=== PATIENT | male | born 2000 | race Two or more races ===

== ENCOUNTER 2022-09-20 15:38 | Outpatient (AMB) | payer OTHER, SELFPAY ==
[2022-09-20 15:41] VITALS: BP 128/78; PULSE 86; O2SAT 97; BMI 34.7
--- NOTE | 2022-09-20 15:41 | A.OFFPC_ITS ---
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 Allergies No Known Allergies Allergy (Verified 09/20/22 16:00) Medication List - Last Reconciled 09/20/22 by Jl Donaldson PA-C albuterol 90 mcg/actuation mcg inhalation budesonide-formoterol 80-4.5 mcg/actuation (Symbicort) 1 puff inhalation BID cetirizine (Zyrtec) 10 mg PO DAILY PRN Tobacco use date assessed: 09/20/22 Dental Screening Dental Screen Date: 09/20/22 Did you have a dental visit in the last 12 months?: Yes Did you have a dental problem in the last 6 months where you did not have access to dental care?: No Was dental information given to patient?: 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 Patient has a past medical history significant for moderate persistent asthma and obesity. .. Asthma: He reports his asthma is fairly well controlled with use of his Symbicort and p.r.n. use of his albuterol inhaler. He denies any recent asthma exacerbations or nighttime awakenings with asthma symptoms .. Obesity: He does understand his BMI is over 30 and will work on being more physically active and adapting to better eating habits to reduce his weight. .. : Vaccines: Up-to-date with COVID vaccine, needs tetanus vaccine [facility] Family History Mother No problems noted. Father No problems noted. Sister No problems noted. Sister No problems noted. Brother No problems noted. Brother No problems noted. Social History (Updated 09/20/22 @ 16:01 by Jl Donaldson PA-C) Housing: Other (with parents) Alcohol intake: current Patient Tobacco Use Status: Never used Tobacco e-Cigarette/Vaping Use: Never Used Second Hand Smoke Exposure: No Current occupational status: unemployed Cognitive needs: No Hearing needs: No Vision needs: Yes Questionnaire PHQ-9 Over the last 2 weeks, how often have you been bothered by any of the following problems? 1. Little interest or pleasure in doing things: not at all 2. Feeling down, depressed, or hopeless: not at all 3. Trouble falling or staying asleep, or sleeping too much: not at all 4. Feeling tired or having little energy: not at all 5. Poor appetite or overeating: not at all 6. Feeling bad about yourself - or that you are a failure or have let yourself or your family down: not at all 7. Trouble concentrating on things, such as reading the newspaper or watching television: not at all 8. Moving or speaking so slowly that other people could have noticed. Or the opposite - being so fidgety or restless that you have been moving around a lot more than usual: not at all 9. Thoughts that you would be better off or of hurting yourself in some way: not at all Total score: 0 Depression Screening Interpretation: Negative 77242 - PHQ-9 Billing: Yes Source: Developed by Drs. Jack Ray, Alena Rodriguez, Delio Fan and colleagues, with an educational airam from [employer]. Thrive Questionnaire Date Thrive assessed: 09/20/22 I am a: Patient What is your living situation today?: I have a steady place to live Within the past 12 months, did the food you bought not last and you didn't have the money to get more?: Never true Within the past 12 months, did you worry whether your food would run out before you got money to buy more?: Never true Do you have trouble paying for medicines?: No Do you have trouble getting transportation to medical appointments?: No Do you have trouble paying your heating and electricity bill?: No Do you have trouble taking care of your child, family member or friend?: No Do you have trouble with day-to-day activities such as bathing, preparing meals, shopping, managing finances, etc.?: No Are you currently unemployed and looking for a job?: No Are you interested in more education?: No Currently or been in a relationship where the following occur: no concerns reported AUDIT C Alcohol Use Questionnaire (AUDIT-C) 1. How often do you have a drink containing alcohol?: Monthly or less 2. How many drinks containing alcohol do you have on a typical day when you are drinking?: 1 or 2 3. How often do you have six or more drinks on one occasion?: Never Total Score: 1 MARILYN-7 AMB Questionnaire MARILYN-7 Date MARILYN - 7 assessed: 09/20/22 Feeling nervous, anxious, or on edge: 1 = Several days Not being able to stop or control worryin = Not at all Worrying too much about different things: 0 = Not at all Trouble relaxin = Not at all Being so restless that it is hard to sit still: 0 = Not at all Becoming easily annoyed or irritable: 0 = Not at all Feeling afraid as if something awful might happen: 0 = Not at all Total MARILYN-7 score (0-4 normal; 5-9 mild; 10-14 moderate; 15-21 severe): 1 Source: Developed by Drs. Jack Ray, Alena Rodriguez, Delio Fan and colleagues, with an educational airam from [employer]. MARILYN-7 Assessment Billing MARILYN-7 Assessment Tool: MARILYN-7 Assessment 28225 ACT Questionnaire In the past 4 weeks, how much of the time did your asthma keep you from getting as much done at work, school or at home?: None of the time During the past 4 weeks, how often have you had shortness of breath?: Not at all During the past 4 weeks, how often did your asthma symptoms wake you up at night or earlier than usual in the morning?: Not at all During the past 4 weeks, how often have you had to use your rescue inhaler or nebulizer medication?: Not at all How would you rate your asthma control during the past 4 weeks?: Completely controlled ACT Interpretation: Negative Score: 25 Review of Systems Const Denies body aches, Denies chills, Denies excessive sweating, Denies fatigue, Denies fever(s) and Denies headache(s) Eyes Denies blurry vision ENT Denies dysphagia, Denies vertigo, Denies dizziness, Denies headache(s), Denies hearing loss and Denies tinnitus Card Denies chest pain, Denies chest pain with activity, Denies syncope, Denies irregular heart rhythm and Denies dyspnea Resp Denies chest congestion, Denies cough, Denies hemoptysis, Denies dyspnea and Denies wheezing GI Denies abdominal pain, Denies melena, Denies hematochezia, Denies coffee ground emesis, Denies dysphagia, Denies diarrhea, Denies nausea and Denies vomiting Denies difficulty urinating, Denies dysuria, Denies urinary frequency, Denies urinary hesitancy and Denies urinary urgency Musc Denies arthralgias, Denies limited range of motion, Denies muscle cramps and Denies muscle weakness Skin/Breast Denies rash and Denies skin ulcer Neuro Denies Abnormal speech present, Denies confusion, Denies vertigo, Denies dizziness, Denies syncope, Denies headache(s), Denies memory loss and Denies seizure-like activity Psych Denies anxiety, Denies confusion, Denies depression, Denies memory loss, Denies panic attacks and Denies paranoia Endo Denies excessive sweating, Denies fatigue, Denies flushing, Denies polydipsia and Denies polyuria Aller/Immun Denies wheezing Physical exam (Primary Care) Vital Signs: Last Vital Signs Pulse 86 09/20/22 15:41 BP 128/78 09/20/22 15:41 Pulse Ox 97 09/20/22 15:41 Oxygen Delivery Method Room Air 09/20/22 15:41 BMI result Body Mass Index 34.7 BMI Assessment/Plan discussion: High Tobacco/Smoking Status: Tobacco use Status Tobacco use date assessed 09/20/22 09/20/22 15:48 Patient Tobacco Use Status Never used Tobacco 09/20/22 16:01 e-Cigarette/Vaping Use Never Used 09/20/22 16:01 PHQ-9: PHQ-9 Score PHQ-9: Total score 0 09/20/22 16:02 Depression Screening Interpretation: Negative Thrive Assessment: Date of Thrive Assessment Date Thrive assessed 09/20/22 09/20/22 15:48 Currently or been in a relationship where the following occur: no concerns reported Const Other: OBESE General: cooperative, comfortable, no acute distress, alert and awake; No confusion Orientation/consciousness: oriented to person, oriented to place, patient oriented x3 and No confusion HENMT Head: Yes normocephalic Ears: external ears normal and TM's normal bilaterally Face and sinus: No sinus tenderness Mouth: Normal oral and palatal mucosa present and tongue normal Teeth and gingiva: dentition normal and gingiva normal Throat: Yes posterior oropharynx normal, Yes tonsils normal and Yes uvula midline Eyes Conjunctivae: conjunctivae normal Sclerae: sclerae normal Pupils: Equal, round and reactive pupils present EOM: EOMs intact bilaterally Direct Ophthalmoscopy: No no photophobia Neck Neck: Yes no lymphadenopathy, No tender and Yes no JVD Thyroid: Thyroid normal Carotids: no bruits Chest Chest palpation & inspection: no tenderness Resp Effort & Inspection: normal respiratory effort, no audible wheezes, not labored and no stridor Auscultation: no crackles, no rales, no rhonchi and no wheezes Cardio Jugular venous distension: no JVD Rate: regular rate, not bradycardic and not tachycardic Rhythm: regular rhythm Bruits: no carotid bruits Peripheral pulses: Peripheral pulses 2+ throughout GI Inspection: Yes normal to inspection, No abdominal wall ecchymosis and No visible herniation Palpation (GI): Soft to palpation, nontender, no guarding, not rigid and No hepatosplenomegaly present Auscultation: normoactive bowel sounds General: Yes no CVA tenderness Back/Spine/Pelvis Back: no CVA tenderness and No back tenderness Cervical Spine: cervical ROM normal Thoracic/Lumbar Spine: thoracic and lumbar spine normal to inspection, straight leg raise negative bilaterally, No thoraco-lumbar ROM limited and No lumbar spinal tenderness Skin Lesions: no lesions Rashes: no rashes Wounds: no wounds Neuro General: oriented to person, oriented to place, patient oriented x3, CN's II-XI intact bilaterally and No confusion Cranial nerves: Yes Equal, round and reactive pupils present and Yes Normal accommodation reflex present Cognition (Neuro): normal cognition Speech: No Abnormal speech present Gait exam (Neuro): Normal gait present Motor exam (neuro): 5/5 motor strength present throughout Extrem Right upper extremity: full ROM; no cyanosis Left upper extremity: full ROM; no cyanosis Right lower extremity: no edema Left lower extremity: no edema Psych Appearance: grossly normal Mental Status: mental status grossly normal Affect: normal affect Attitude: cooperative Thought process: Normal thought process present Assessment and Plan Assessment & Plan (1) Annual physical exam: Code(s): Z00.00 - Encounter for general adult medical examination without abnormal findings (2) Asthma: Code(s): J45.909 - Unspecified asthma, uncomplicated Qualifiers: Asthma complication type: uncomplicated Asthma persistence: persistent Asthma severity: mild Qualified Code(s): J45.30 - Mild persistent asthma, uncomplicated Plan: Patient does use Symbicort on a p.r.n. basis also albuterol inhaler on a p.r.n. basis. He denies any nighttime with asthma symptoms or awakenings are recent asthma exacerbations. (3) Screening for diabetes mellitus (DM): Code(s): Z13.1 - Encounter for screening for diabetes mellitus (4) Obese: Code(s): E66.9 - Obesity, unspecified Qualifiers: Obesity type: due to excess calories Obesity classification: adult class 1 (BMI 30 - 34.9) Serious obesity comorbidity presence: without serious comorbidity Body mass index: BMI 34.0-34.9 Qualified Code(s): E66.09 - Other obesity due to excess calories; Z68.34 - Body mass index [BMI] 34.0-34.9, adult Plan: Again patient does understand his BMI is over 30 will work on being more physically active and adapting to better eating habits to reduce his weight Orders: Orders Comprehensive [place]. Panel Fast 09/20/22 Z13.1 - Encounter for screening for diabetes mellitus Complete Blood Count no Diff 09/20/22 J45.909 - Unspecified asthma, uncomplicated Medications: New budesonide-formoterol 80-4.5 mcg/actuation (Symbicort) 1 puff inhalation BID 30 days 10.2 grams 1RF J45.30 - Mild persistent asthma, uncomplicated albuterol sulfate 90 mcg/actuation 1 inh inhalation QID 30 days PRN 8.5 grams 3RF shortness of breath or wheezing J45.30 - Mild persistent asthma, uncomplicat ed Coding Level of Care Code New Pt Prev Care [id number]([id number] Diagnoses Annual physical exam Z00.00 Asthma J45.30 Asthma complication type: uncomplicated Asthma persistence: persistent Asthma severity: mild Screening for diabetes mellitus (DM) Z13.1 Obese E66.09; Z68.34 Obesity type: due to excess calories Obesity classification: adult class 1 (BMI 30 - 34.9) Serious obesity comorbidity presence: without serious comorbidity Body mass index: BMI 34.0-34.9 Additional Codes MARILYN-7 Assessment Billing - MARILYN-7 Assessment Tool: MARILYN-7 Assessment [id number] ([id number])
== END 2022-09-20 16:11 | disposition home or self-care (01) ==
PROVIDERS: Visit Provider Physician Assistant
DX: Z00.00 Encounter for general adult medical examination without abnormal findings (principal); J45.30 Mild persistent asthma, uncomplicated; E66.09 Other obesity due to excess calories; Z68.34 Body mass index [BMI] 34.0-34.9, adult; Z13.1 Encounter for screening for diabetes mellitus
CPT/HCPCS: 99385

== ENCOUNTER 2022-10-13 07:46 | Outpatient (REF) | payer OTHER, MEDICAID, SELFPAY ==
[2022-10-13 08:37] LABS: Hematocrit 47.7 % (42.0-52.0); Hemoglobin 15.1 g/dl (14.0-18.0); Mean Corpuscular HGB Conc 31.7 g/dl (31.0-36.0); Mean Corpuscular Hemoglobin 24.9 pg (27.0-33.0); Mean Corpuscular Volume 78.6 fL (80.0-98.0); Mean Platelet Volume 11.4 fL (9.4-12.4); Platelet Count 223 X10*3/uL (160-400); Red Blood Count 6.07 X10*6/uL (4.60-5.80); Red Cell Distribution Width 13.4 % (11.0-16.0); White Blood Count 7.7 X10*3/uL (4.8-10.8)
[2022-10-13 09:52] LABS: Alanine Aminotransferase 45 U/L (0-40); Albumin Level 4.7 g/dL (3.5-5.0); Alkaline Phosphatase 89 U/L (39-117); Anion Gap 16 (12-20); Aspartate Amino Transferase 24 U/L (5-37); Bilirubin Total 0.5 mg/dL (0.0-1.0); Blood Urea Nitrogen 11 mg/dL (9-16); Carbon Dioxide 23 mmol/L (22-29); Chloride 104 mmol/L (96-108); Estimated Glomerular Filt Rate > 60; Glucose Fasting 94 mg/dL (60-99); Potassium 4.2 mmol/L (3.3-5.1); Sodium 139 mmol/L (135-145)
== END 2022-10-13 07:47 | disposition home or self-care (01) ==
LOC: HO.LAB 07:46
PROVIDERS: PCP Physician Assistant; Visit Provider Physician Assistant
DX: Z13.1 Encounter for screening for diabetes mellitus (principal); J45.909 Unspecified asthma, uncomplicated
CPT/HCPCS: 36415; 80053; 85027

== ENCOUNTER 2022-12-07 09:33 | Outpatient (AMB) | payer OTHER, MEDICAID, SELFPAY ==
[2022-12-07 09:35] VITALS: BP 124/67; PULSE 87; O2SAT 97; BMI 35.4
--- NOTE | 2022-12-07 09:35 | A.OFFVIS_ITS ---
Intake Vital Signs 12/07/22 09:35 Height 5 ft 7.5 in Weight 229 lb 4.492 oz BMI 35.4 BP 124/67 Blood Pressure Location Rt brachial Position Sitting Pulse 87 Pulse Source Doppler Pulse Oximetry (%) 97 Oxygen Delivery Method Room Air Intake Visit Reasons: Asthma Allergies amoxicillin Allergy (Severe, Verified 12/07/22 09:38) Rash HPI Asthma HPI Details 21-year-old gentleman, nonsmoker, with a sthma since 7 years of age, now under care of Dr. Steele referred for pulmonary evaluation. Patient states that his symptoms are well controlled on Symbicort, albuterol MDI, and Zyrtec. He denies recent exacerbations. Patient never been hospitalized with asthma. He does have a dog and a cat as pets. He complains of environmental allergies. [facility] Family History Mother No problems noted. Father No problems noted. Sister No problems noted. Sister No problems noted. Brother No problems noted. Brother No problems noted. Social History (Reviewed 12/07/22 @ 09:40 by Dee Holm [facility]) Housing: Other (with parents) Alcohol intake: current Patient Tobacco Use Status: Never used Tobacco e-Cigarette/Vaping Use: Never Used Second Hand Smoke Exposure: No Current occupational status: unemployed Cognitive needs: No Hearing needs: No Vision needs: Yes Review of Systems Const Denies daytime sleepiness, Denies excessive sweating, Denies fatigue, Denies fever(s), Denies lethargy, Denies malaise, Denies night sweats, Denies snoring and Denies weight loss Eyes Denies blurry vision and Denies itchy eyes ENT Denies nasal congestion, Denies post nasal drip, Denies sinus pain, Denies sinus pressure and Denies other ( Thrush) Card Denies chest pain, Denies pedal edema, Denies dyspnea, Denies orthopnea and Denies paroxysmal nocturnal dyspnea Resp Denies cough, Denies hemoptysis, Denies excessive phlegm production, Denies dyspnea, Denies snoring and Denies wheezing GI Denies abdominal pain and Denies heartburn Musc Denies myalgias, Denies arthralgias and Denies joint swelling Skin/Breast Denies rash Neuro Denies memory loss and Denies seizure-like activity Psych Denies abnormal sleep pattern, Denies anxiety and Denies memory loss Endo Denies excessive sweating, Denies fatigue and Denies heat intolerance Haroldo/Lymph Denies easy bruising Aller/Immun Denies itchy eyes, Denies seasonal rhinorrhea and Denies wheezing Physical Exam Vital Signs: Last Vital Signs Pulse 87 12/07/22 09:35 BP 124/67 12/07/22 09:35 Pulse Ox 97 12/07/22 09:35 Oxygen Delivery Method Room Air 12/07/22 09:35 BMI result Body Mass Index 35.4 Const General: no acute distress and alert Nutritional Appearance: not obese Orientation/consciousness: Other orientation findings ( oriented) HEENT Head: Yes atraumatic Eyes General: appearance normal, both eyes and all related structures Sclerae: sclerae normal EOM: EOMs intact bilaterally Neck Neck: Yes supple Lymphatic: no lymphadenopathy noted Resp Effort & Inspection: normal respiratory effort and no use of accessory muscles Auscultation: clear to auscultation bilaterally Cardio Rate: regular rate Rhythm: regular rhythm Heart sounds: no gallops, no murmurs and no rubs Skin General skin exam: other ( warm) Extrem General: No clubbing, No cyanosis and No edema Assessment & Plan Assessment & Plan (1) Asthma: Code(s): J45.909 - Unspecified asthma, uncomplicated Qualifiers: Asthma severity: mild Asthma persistence: persistent Asthma compl ication type: uncomplicated Qualified Code(s): J45.30 - Mild persistent asthma, uncomplicated Plan: Asthma of unclear severity, now well controlled on current regimen of Symbicort, albuterol MDI, and Zyrtec. Continue current regimen. Will obtain full PFT. Coding Level of Care Code New Pt Level 3 (33994) Diagnoses Mild persistent asthma without complication J45.30 Asthma severity: mild Asthma persistence: persistent Asthma complication type: uncomplicated
== END 2022-12-07 09:56 | disposition home or self-care (01) ==
PROVIDERS: PCP Physician Assistant; Referring Provider Otolaryngology; Visit Provider Internal Medicine Pulmonary Disease
DX: J45.30 Mild persistent asthma, uncomplicated (principal)
CPT/HCPCS: 99203

== ENCOUNTER → 2022-12-07 09:33 | Outpatient (BNVA) | payer OTHER, MEDICAID, SELFPAY | PROVIDERS: PCP Physician Assistant; Referring Provider Otolaryngology; Visit Provider Internal Medicine Pulmonary Disease ==

== ENCOUNTER 2022-12-13 08:27 | Outpatient (REF) | payer OTHER, MEDICAID, SELFPAY ==
--- NOTE | 2022-12-14 08:07 | PFT_ITS ---
FLOWS: 1. FEV1 109% of predicted at 4.12 L. 2. FVC 103% of predicted at 5.01 L. 3. FEV1 to FVC ratio of 0.82. 4. No bronchodilator response except for small to medium airways. LUNG VOLUMES: 1. Total lung capacity 94% of predicted at 5.85 L. 2. Residual volume 77% of predicted at 1.00 L. 3. Slow vital capacity 101% of predicted at 4.85 L. 4. Expiratory reserve volume 72% of predicted at 1.11 L. 5. Diffusion capacity is normal. IMPRESSION: No obstructive or restrictive ventilatory defect. No bronchodilator response except small to medium airways. Essentially normal pulmonary function test. MD ABHISHEK Quintero/MODL / [id number]
== END 2022-12-13 08:28 | disposition home or self-care (01) ==
LOC: HO.RESP 08:27
PROVIDERS: PCP Physician Assistant; Visit Provider Internal Medicine Pulmonary Disease
DX: J45.30 Mild persistent asthma, uncomplicated (principal)
CPT/HCPCS: 94010; 94727; 94729

== ENCOUNTER → 2022-12-14 08:07 | Outpatient (BNV) | payer OTHER, MEDICAID, SELFPAY | PROVIDERS: PCP Physician Assistant; Visit Provider Internal Medicine Pulmonary Disease | DX: R06.09 Other forms of dyspnea (principal) | CPT/HCPCS: 94060; 94727; 94729 ==

== ENCOUNTER 2023-10-22 14:02 | Outpatient (AMB) | payer OTHER, SELFPAY ==
--- NOTE | 2023-10-22 14:19 | MHC.PC.OV ---
Vital Signs 10/22/23 14:40 Height 5 ft 5.7 in Weight 222 lb 6 oz BMI 36.2 BP 118/80 Blood Pressure Location Lt brachial Position Sitting Pulse 68 Pulse Source Pulse Oximeter Pulse Oximetry (%) 98 Oxygen Delivery Method Room Air Intake Visit Reasons: Annual Exam Intake Note: Patient is here today for a physical. Shore Worker Required: No Accompanied by: Self / Same As Patient Allergies amoxicillin Allergy (Severe, Verified 10/22/23 14:56) Rash Medication List - Last Reconciled 10/22/23 by Jl Donaldson PA-C albuterol sulfate 90 mcg/actuation 1 inh inhalation QID PRN 30 days budesonide-formoterol 160-4.5 mcg/actuation (Symbicort) inhalation cetirizine (Zyrtec) 10 mg PO DAILY PRN diphenhydramine HCl (Benadryl Allergy) 25 mg PO BEDTIME PRN epinephrine (EpiPen) 0.3 mg IM Q4H PRN fluticasone propion-salmeterol 113-14 mcg/actuation (AirDuo RespiClick) 1 inh inhalation BID 30 days Tobacco use date assessed: 10/22/23 Dental Screening Dental Screen Date: 10/22/23 Did you have a dental visit in the last 12 months?: Yes Did you have a dental problem in the last 6 months where you did not have access to dental care?: No Was dental information given to patient?: Patient has dentist HPI Annual Exam HPI Details Patient is a 22-year-old male here today for annual physical Patient has a past medical history significant for moderate persistent asthma and obesity. .. Asthma: He reports his asthma is fairly well controlled with use of his Symbicort and p.r.n. use of his albuterol inhaler. He denies any recent asthma exacerbations or nighttime awakenings with asthma symptoms .. Obesity: Has been able to lose a few lb since last office visit. He does understand his BMI is over 30 and will work on being more physically active and adapting to better eating habits to reduce his weight. .. : Vaccines: Up-to-date with COVID vaccine, needs tetanus vaccine (though declines today) PFSH Family History Mother No problems noted. Father No problems noted. Sister No problems noted. Sister No problems noted. Brother No problems noted. Brother No problems noted. Social History (Updated 10/22/23 @ 15:00 by Jl Donaldson PA-C) Housing: Other (with parents) Alcohol intake: current Alcohol intake frequency: holidays/special occasions only Alcohol type: hard liquor Patient Tobacco Use Status: Never used Tobacco e-Cigarette/Vaping Use: Never Used Second Hand Smoke Exposure: No Current occupational status: employed Current occupation: [employer] Cognitive needs: No Hearing needs: No Vision needs: Yes Questionnaire PHQ-9 Over the last 2 weeks, how often have you been bothered by any of the following problems? 1. Little interest or pleasure in doing things: not at all 2. Feeling down, depressed, or hopeless: not at all 3. Trouble falling or staying asleep, or sleeping too much: not at all 4. Feeling tired or having little energy: not at all 5. Poor appetite or overeating: not at all 6. Feeling bad about yourself - or that you are a failure or have let yourself or your family down: not at all 7. Trouble concentrating on things, such as reading the newspaper or watching television: nearly every day 8. Moving or speaking so slowly that other people could have noticed. Or the opposite - being so fidgety or restless that you have been moving around a lot more than usual: nearly every day 9. Thoughts that you would be better off or of hurting yourself in some way: not at all Total score: 6 Depression Screening Interpretation: Negative Depression Screening Done: Yes 05549 - PHQ-9 Billing: Yes Source: Developed by Drs. Jack Ray, Alena Rodriguez, Delio Fan and colleagues, with an educational airam from [employer]. Thrive Questionnaire Date Thrive assessed: 10/22/23 I am a: Patient What is your living situation today?: I have a steady place to live Within the past 12 months, did the food you bought not last and you didn't have the money to get more?: Never true Within the past 12 months, did you worry whether your food would run out before you got money to buy more?: Never true Do you have trouble paying for medicines?: No Do you have trouble getting transportation to medical appointments?: No Do you have trouble paying your heating and electricity bill?: No Do you have trouble taking care of your child, family member or friend?: I choose not to answer this question Do you have trouble with day-to-day activities such as bathing, preparing meals, shopping, managing finances, etc.?: No Are you currently unemployed and looking for a job?: No Are you interested in more education?: No Please select the resources that you would like help with: None Currently or been in a relationship where the following occur: No concerns reported THRIVE Score: 0 AUDIT C Alcohol Use Questionnaire (AUDIT-C) 1. How often do you have a drink containing alcohol?: Never 3. How often do you have six or more drinks on one occasion?: Never Total Score: 0 MARILYN-7 AMB Questionnaire MARILYN-7 Date MARILYN - 7 assessed: 10/22/23 Feeling nervous, anxious, or on edge: 0 = Not at all Not being able to stop or control worryin = Not at all Worrying too much about different things: 0 = Not at all Trouble relaxin = Not at all Being so restless that it is hard to sit still: 1 = Several days Becoming easily annoyed or irritable: 0 = Not at all Feeling afraid as if something awful might happen: 0 = Not at all Total MARILYN-7 score (0-4 normal; 5-9 mild; 10-14 moderate; 15-21 severe): 1 Source: Developed by Drs. Jack Ray, Alena Rodriguez, Delio Fan and colleagues, with an educational airam from [employer] MARILYN-7 Assessment Billing MARILYN-7 Assessment Tool: MARILYN-7 Assessment 53123 ACT Questionnaire In the past 4 weeks, how much of the time did your asthma keep you from getting as much done at work, school or at home?: None of the time During the past 4 weeks, how often have you had shortness of breath?: Not at all During the past 4 weeks, how often did your asthma symptoms wake you up at night or earlier than usual in the morning?: Not at all During the past 4 weeks, how often have you had to use your rescue inhaler or nebulizer medication?: Not at all How would you rate your asthma control during the past 4 weeks?: Completely controlled ACT Interpretation: Negative Score: 25 Review of Systems Const Denies body aches, Denies chills, Denies excessive sweating, Denies fatigue, Denies fever(s) and Denies headache(s) Eyes Denies blurry vision ENT Denies dysphagia, Denies vertigo, Denies dizziness, Denies headache(s), Denies hearing loss and Denies tinnitus Card Denies chest pain, Denies chest pain with activity, Denies syncope, Denies irregular heart rhythm and Denies dyspnea Resp Denies chest congestion, Denies cough, Denies hemoptysis, Denies dyspnea and Denies wheezing GI Denies abdominal pain, Denies melena, Denies hematochezia, Denies coffee ground emesis, Denies dysphagia, Denies diarrhea, Denies nausea and Denies vomiting Denies difficulty urinating, Denies dysuria, Denies urinary frequency, Denies urinary hesitancy and Denies urinary urgency Musc Denies arthralgias, Denies limited range of motion, Denies muscle cramps and Denies muscle weakness Skin/Breast Denies rash and Denies skin ulcer Neuro Denies Abnormal speech present, Denies confusion, Denies vertigo, Denies dizziness, Denies syncope, Denies headache(s), Denies memory loss and Denies seizure-like activity Psych Denies anxiety, Denies confusion, Denies depression, Denies memory loss, Denies panic attacks and Denies paranoia Endo Denies excessive sweating, Denies fatigue, Denies flushing, Denies polydipsia and Denies polyuria Aller/Immun Denies wheezing Physical exam (Primary Care) Vital Signs: Last Vital Signs Pulse 68 10/22/23 14:40 BP 118/80 10/22/23 14:40 Pulse Ox 98 10/22/23 14:40 Oxygen Delivery Method Room Air 10/22/23 14:40 BMI result Body Mass Index 36.2 Tobacco/Smoking Status: Tobacco use Status Tobacco use date assessed 10/22/23 10/22/23 14:41 Patient Tobacco Use Status Never used Tobacco 10/22/23 15:00 e-Cigarette/Vaping Use Never Used 10/22/23 15:00 PHQ-9: PHQ-9 Score PHQ-9: Total score 6 10/22/23 15:09 Depression Screening Interpretation: Negative Thrive Assessment: Date of Thrive Assessment Date Thrive assessed 10/22/23 10/22/23 14:20 Currently or been in a relationship where the following occur: No concerns reported Const General: cooperative, comfortable, no acute distress, alert and awake; No confusion Orientation/consciousness: oriented to person, oriented to place, patient oriented x3 and No confusion HENWY Head: Yes normocephalic Ears: external ears normal and TM's normal bilaterally Face and sinus: No sinus tenderness Mouth: Normal oral and palatal mucosa present and tongue normal Teeth and gingiva: dentition normal and gingiva normal Throat: Yes posterior oropharynx normal, Yes tonsils normal and Yes uvula midline Eyes Conjunctivae: conjunctivae normal Sclerae: sclerae normal Pupils: Equal, round and reactive pupils present EOM: EOMs intact bilaterally Direct Ophthalmoscopy: No no photophobia Neck Neck: Yes no lymphadenopathy, No tender and Yes no JVD Thyroid: Thyroid normal Carotids: no bruits Chest Chest palpation & inspection: no tenderness Resp Effort & Inspection: normal respiratory effort, no audible wheezes, not labored and no stridor Auscultation: no crackles, no rales, no rhonchi and no wheezes Cardio Jugular venous distension: no JVD Rate: regular rate, not bradycardic and not tachycardic Rhythm: regular rhythm Bruits: no carotid bruits Peripheral pulses: Peripheral pulses 2+ throughout GI Inspection: Yes normal to inspection, No abdominal wall ecchymosis and No visible herniation Palpation (GI): Soft to palpation, nontender, no guarding, not rigid and No hepatosplenomegaly present Auscultation: normoactive bowel sounds General: Yes no CVA tenderness Back/Spine/Pelvis Back: no CVA tenderness and No back tenderness Cervical Spine: cervical ROM normal Thoracic/Lumbar Spine: thoracic and lumbar spine normal to inspection, straight leg raise negative bilaterally, No thoraco-lumbar ROM limited and No lumbar spinal tenderness Skin Lesions: no lesions Rashes: no rashes Wounds: no wounds Neuro General: oriented to person, oriented to place, patient oriented x3, CN's II-XI intact bilaterally and No confusion Cranial nerves: Yes Equal, round and reactive pupils present and Yes Normal accommodation reflex present Cognition (Neuro): normal cognition Speech: No Abnormal speech present Gait exam (Neuro): Normal gait present Motor exam (neuro): 5/5 motor strength present throughout Extrem Right upper extremity: full ROM; no cyanosis Left upper extremity: full ROM; no cyanosis Right lower extremity: no edema Left lower extremity: no edema Psych Appearance: grossly normal Mental Status: mental status grossly normal Affect: normal affect Attitude: cooperative Thought process: Normal thought process present Assessment and Plan Assessment & Plan (1) Annual physical exam: Code(s): Z00.00 - Encounter for general adult medical examination without abnormal findings (2) Asthma: Code(s): J45.909 - Unspecified asthma, uncomplicated Qualifiers: Asthma complication type: uncomplicated Asthma persistence: persistent Asthma severity: mild Qualified Code(s): J45.30 - Mild persistent asthma, uncomplicated Plan: Patient does use Symbicort on a p.r.n. basis also albuterol inhaler on a p.r.n. basis. He denies any nighttime with asthma symptoms or awakenings are recent asthma exacerbations. (3) Screening for diabetes mellitus (DM): Code(s): Z13.1 - Encounter for screening for diabetes mellitus Orders: Orders Complete Blood Count no Diff Today J45.30 - Mild persistent asthma, uncomplicated Comprehensive Justice. Panel Fast Today Z13.1 - Encounter for screening for diabetes mellitus Medications: Changed From budesonide-formoterol 160-4.5 mcg/actuation (Symbicort) inhalation J45.30 - Mild persistent asthma, uncomplicated To budesonide-formoterol 160-4.5 mcg/actuation (Symbicort) 1 puff inhalation BID 10.2 grams 3RF 30 days J45.30 - Mild persistent asthma, uncomplicated From cetirizine (Zyrtec) 10 mg PO DAILY PRN J45.30 - Mild persistent asthma, uncomplicated To cetirizine (Zyrtec) 10 mg PO DAILY 90 tabs 1RF 90 days J45.30 - Mild persistent asthma, uncomplicated Refilled albuterol sulfate 90 mcg/actuation 1 inh inhalation QID PRN 8.5 grams 3RF shortness of breath or wheezing 30 days J45.30 - Mild persistent asthma, uncomplicated Discontinued fluticasone propion-salmeterol 113-14 mcg/actuation (AirDuo RespiClick) Discontinued Reason: Doctor's Order 1 inh inhalation BID 30 days 1 ea 3RF J45.30 - Mild persistent asthma, uncomplicated Coding Level of Care Code Est Pt Prev Care 18-39y([id number]) Diagnoses Annual physical exam Z00.00 Mild persistent asthma without complication J45.30 Asthma complication type: uncomplicated Asthma persistence: persistent Asthma severity: mild Screening for diabetes mellitus (DM) Z13.1 Additional Codes MARILYN-7 Assessment Billing - MARILYN-7 Assessment Tool: MARILYN-7 Assessment 75679 ([id number])
[2023-10-22 14:40] VITALS: BP 118/80; PULSE 68; O2SAT 98; BMI 36.2
== END 2023-10-22 15:10 | disposition home or self-care (01) ==
PROVIDERS: PCP Physician Assistant; Visit Provider Physician Assistant
DX: Z00.00 Encounter for general adult medical examination without abnormal findings (principal); J45.30 Mild persistent asthma, uncomplicated
CPT/HCPCS: 99395

== ENCOUNTER 2024-09-30 09:12 | Outpatient (AMB) | payer OTHER, MEDICAID, SELFPAY ==
--- OUTSIDE RECORDS SUMMARY | 2024-09-30 10:10 | XMS_ITS | Encounter Summary ---
Author Organization [facility] Address [address] [place] [address] Phone Care Team Providers Care Digital Producer Name Role Phone Jacinto Chaudhary MD Primary Care Provider [phone] Encounter Details Date Type Department Care Team (Late st Contact Info) Description 02/16/2011 Documentation [facility] [place] Family Medicine [address] [place] [address] Family Medicine, Physician [address] [place] [address] Social History Tobacco Use Types Packs/Day Years Used Date Smoking Tobacco: Never Assessed Sex and Gender Information Value Date Recorded Sex Assigned at Male 09/24/2019 9:10 AM EDT Legal Sex Male 5:13 PM EDT Gender Identity Male 09/24/2019 9:10 AM EDT Sexual Orientation Straight 09/24/2019 9: 10 AM EDT documented as of this encounter Plan of Treatment Not on file documented as of this encounter Visit Diagnoses Not on filedocumented in this encounter Care Teams Digital Producer Relationship Specialty Start Date End Date Jacinto Chaudhary MD [address] [place] [address] [place] [id number] PCP - General 09/22/16 08/02/22 documented as of this encounter
== END 2024-09-30 09:56 | disposition home or self-care (01) ==
LOC: HO.HMGAL 09:12
PROVIDERS: PCP Physician Assistant; Visit Provider Registered Nurse Emergency
DX: J30.89 Other allergic rhinitis (principal)
CPT/HCPCS: 95117; 95165

== ENCOUNTER 2024-10-06 09:38 | Outpatient (AMB) | payer OTHER, MEDICAID, SELFPAY ==
--- OUTSIDE RECORDS SUMMARY | 2024-10-06 10:26 | XMS_ITS | Encounter Summary ---
Author Organization [facility] Address [address] [place] [address] Phone Care Team Providers Care Tank Farm Gauger Name Role Phone Jacinto Chaudhary MD Primary Care Provider [phone] Encounter Details Date Type Department Care Team (Late st Contact Info) Description 02/16/2011 Documentation [facility] [place] Family Medicine [address] [place] [address] Family Medicine, Physician [address] [place] [address] Social History Tobacco Use Types Packs/Day Years [...] on filedocumented in this encounter Care Teams Tank Farm Gauger Relationship Specialty Start Date End Date Jacinto Chaudhary MD [address] [place] [address] [place] [id number] PCP - General 09/22/16 08/02/22 documented as of this encounter
== END 2024-10-06 14:37 | disposition home or self-care (01) ==
LOC: HO.HMGAL 09:38
PROVIDERS: PCP Physician Assistant; Visit Provider Registered Nurse Emergency
DX: J30.89 Other allergic rhinitis (principal)
CPT/HCPCS: 95117; 95165

== ENCOUNTER 2024-10-20 09:15 | Outpatient (AMB) | payer OTHER, MEDICAID, SELFPAY ==
--- OUTSIDE RECORDS SUMMARY | 2024-10-20 10:23 | XMS_ITS | Encounter Summary ---
Author Organization [facility] Address [address] [place] [address] Phone Care Team Providers Care Hog Ringer Name Role Phone Jacinto Chaudhary MD Primary Care Provider [phone] Encounter Details Date Type Department Care Team (Late st Contact Info) Description 02/16/2011 [place] [facility] [place] [address] [place] [address] Family Medicine, Physician [address] [place] [address] Social History Tobacco Use Types Packs/Day Years [...] on filedocumented in this encounter Care Teams Hog Ringer Relationship Specialty Start Date End Date Jacinto Chaudhary MD [address] [place] [address] [place] [id number] PCP - General 09/22/16 08/02/22 documented as of this encounter
--- OUTSIDE RECORDS SUMMARY | 2024-10-20 10:23 | XMS_ITS | Encounter Summary ---
Author Organization [facility] Address [address] [place] [address] Phone Care Team Providers Care Certified Lactation Counselor Name Role Phone Jacinto Chaudhary MD Primary Care Provider [phone] Encounter Details Date Type Department Care Team (Late st Contact Info) Description 04/07/2014 Documentation [facility] [place] [address] [place] [address] Family Medicine, Physician [address] [place] [address] Social History Tobacco Use Types Packs/Day Years [...] on filedocumented in this encounter Care Teams Certified Lactation Counselor Relationship Specialty Start Date End Date Jacinto Chaudhary MD [address] [place] [address] [place] [id number] PCP - General 09/22/16 08/02/22 documented as of this encounter
--- OUTSIDE RECORDS SUMMARY | 2024-10-20 10:23 | XMS_ITS | Encounter Summary ---
Author Organization [facility] Address [address] [place] [address] Phone Care Team Providers Care Digital Operations Analyst Name Role Phone Jacinto Chaudhary MD Primary Care Provider [phone] Encounter Details Date Type Department Care Team (Late st Contact Info) Description 02/27/2013 Documentation [facility] [place] Family Medicine [address] [place] [address] Family Medicine, Physician [address] [place] [address] Social History Tobacco Use Types Packs/Day Years [...] filedocumented in this encounter Care Teams Digital Operations Analyst Relationship Specialty Start Date End Date Jacinto Chaudhary MD [address] [place] [address] [place] [id number] PCP - General 09/22/16 08/02/22 documented as of this encounter
--- OUTSIDE RECORDS SUMMARY | 2024-10-20 10:23 | XMS_ITS | Encounter Summary ---
Author Organization [facility] Address [address] [place] [address] Phone Care Team Providers Care Cnc Lathe Machine Operator Name Role Phone Jacinto Chaudhary MD Primary Care Provider [phone] Encounter Details Date Type Department Care Team (Late st Contact Info) Description 04/09/2015 Documentation [facility] [place] Family Medicine [address] [place] [address] Family Medicine, Physician [address] [place] [address] Social History Tobacco Use Types Packs/Day Years [...] on filedocumented in this encounter Care Teams Cnc Lathe Machine Operator Relationship Specialty Start Date End Date Jacinto Chaudhary MD [address] [place] [address] [place] [id number] PCP - General 09/22/16 08/02/22 documented as of this encounter
--- OUTSIDE RECORDS SUMMARY | 2024-10-20 10:23 | XMS_ITS | Encounter Summary ---
Author Organization [facility] Address [address] [place] [address] Phone Care Team Providers Care Splicing Machine Operator Name Role Phone Jacinto Chaudhary MD Primary Care Provider [phone] Encounter Details Date Type Department Care Team (Late st Contact Info) Description 03/14/2012 Documentation [facility] [place] [address] [place] [address] Family Medicine, Physician [address] [place] [address] Social History Tobacco Use Types Packs/Day Years [...] on filedocumented in this encounter Care Teams Splicing Machine Operator Relationship Specialty Start Date End Date Jacinto Chaudhary MD [address] [place] [address] [place] [id number] PCP - General 09/22/16 08/02/22 documented as of this encounter
--- OUTSIDE RECORDS SUMMARY | 2024-10-20 10:23 | XMS_ITS | Encounter Summary ---
Author Organization [facility] Address [address] [place] [address] Phone Care Team Providers Care Disability Liaison Officer Name Role Phone Jacinto Chaudhary MD Primary Care Provider [phone] Encounter Details Date Type Department Care Team (Late st Contact Info) Description 04/26/2010 Documentation [facility] [place] [address] [place] [address] Family Medicine, Physician [address] [place] [address] Social History Tobacco Use Types Packs/Day Years [...] on filedocumented in this encounter Care Teams Disability Liaison Officer Relationship Specialty Start Date End Date Jacinto Chaudhary MD [address] [place] [address] [place] [id number] PCP - General 09/22/16 08/02/22 documented as of this encounter
--- OUTSIDE RECORDS SUMMARY | 2024-10-20 10:23 | XMS_ITS | Encounter Summary ---
Author Organization [facility] Address [address] [place] [address] Phone Care Team Providers Care Grease Rack Worker Name Role Phone Jacinto Chaudhary MD Primary Care Provider [phone] Encounter Details Date Type Department Care Team (Late st Contact Info) Description 02/27/2013 [place]ation [facility] [place] [address] [place] [address] Family Medicine, Physician [address] [place] [address] Social History Tobacco Use Types Packs/Day Years [...] on filedocumented in this encounter Care Teams Grease Rack Worker Relationship Specialty Start Date End Date Jacinto Chaudhary MD [address] [place] [address] [place] [id number] PCP - General 09/22/16 08/02/22 documented as of this encounter
--- OUTSIDE RECORDS SUMMARY | 2024-10-20 10:23 | XMS_ITS | Encounter Summary ---
Author Organization [facility] Address [address] [place] [address] Phone Care Team Providers Care Teaching Fellow Name Role Phone Jacinto Chaudhary MD Primary Care Provider [phone] Encounter Details Date Type Department Care Team (Late st Contact Info) Description 05/09/2013 Documentation [facility] [place] Family Medicine [address] [place] [address] Family Medicine, Physician [address] [place] [address] Social History Tobacco Use Types Packs/Day Years [...] on filedocumented in this encounter Care Teams Teaching Fellow Relationship Specialty Start Date End Date Jacinto Chaudhary MD [address] [place] [address] [place] [phone] PCP - General 09/22/16 08/02/22 documented as of this encounter
--- OUTSIDE RECORDS SUMMARY | 2024-10-20 10:23 | XMS_ITS | Encounter Summary ---
Author Organization [facility] Address [address] [place] [address] Phone Care Team Providers Care Home Appraiser Name Role Phone Jacinto Chaudhary MD Primary Care Provider [phone] Encounter Details Date Type Department Care Team (Late st Contact Info) Description 04/04/2013 Documentation [facility] [place] [address] [place] [address] Family Medicine, Physician [address] [place] [address] Social History Tobacco Use Types Packs/Day Years [...] on filedocumented in this encounter Care Teams Home Appraiser Relationship Specialty Start Date End Date Jacinto Chaudhary MD [address] [place] [address] [place] [phone] PCP - General 09/22/16 08/02/22 documented as of this encounter
--- OUTSIDE RECORDS SUMMARY | 2024-10-20 10:23 | XMS_ITS | Encounter Summary ---
Author Organization [facility] Address [address] [place] [address] Phone Care Team Providers Care Superintendent Sales Name Role Phone Jacinto Chaudhary MD Primary Care Provider [phone] Encounter Details Date Type Department Care Team (Late st Contact Info) Description 04/07/2014 Documentation [facility] [place] Family Medicine [address] [place] [address] Family Medicine, Physician [address] [place] [address] Social History Tobacco Use Types Packs/Day Years [...] on filedocumented in this encounter Care Teams Superintendent Sales Relationship Specialty Start Date End Date Jacinto Chaudhary MD [address] [place] [address] [place] [phone] PCP - General 09/22/16 08/02/22 documented as of this encounter
--- OUTSIDE RECORDS SUMMARY | 2024-10-20 10:23 | XMS_ITS | Encounter Summary ---
Author Organization [facility] Address [address] [place] [address] Phone Care Team Providers Care Environmental Field Technician Name Role Phone Jacinto Chaudhary MD Primary Care Provider [phone] Encounter Details Date Type Department Care Team (Late st Contact Info) Description 11/10/[address] [facility] [place] Family Medicine [address] [place] [address] Family Medicine, Physician [address] [place] [address] Social History Tobacco Use Types Packs/Day Years [...] on filedocumented in this encounter Care Teams Environmental Field Technician Relationship Specialty Start Date End Date Jacinto Chaudhary MD [address] [place] [address] [place] [phone] PCP - General 09/22/16 08/02/22 documented as of this encounter
--- OUTSIDE RECORDS SUMMARY | 2024-10-20 10:23 | XMS_ITS | Encounter Summary ---
Author Organization [facility] Address [address] [place] [address] Phone Care Team Providers Care Carbon Sequestration Plant Engineer Name Role Phone Jacinto Chaudhary MD Primary Care Provider [phone] Encounter Details Date Type Department Care Team (Late st Contact Info) Description 11/10/2013 Documentation [facility] [place] Family Medicine [address] [place] [address] Family Medicine, Physician [address] [place] [address] Social History Tobacco Use Types Packs/Day Years [...] on filedocumented in this encounter Care Teams Carbon Sequestration Plant Engineer Relationship Specialty Start Date End Date Jacinto Chaudhary MD [address] [place] [address] [place] [id number] PCP - General 09/22/16 08/02/22 documented as of this encounter
--- OUTSIDE RECORDS SUMMARY | 2024-10-20 10:23 | XMS_ITS | Encounter Summary ---
Author Organization [facility] Address [address] [place] [address] Phone Care Team Providers Care Md Ophthalmologist Name Role Phone Jacinto Chaudhary MD Primary Care Provider [phone] Encounter Details Date Type Department Care Team (Late st Contact Info) Description 04/14/2016 Documentation [facility] [place] Family Medicine [address] [place] [address] Family Medicine, Physician [address] [place] [address] Social History Tobacco Use Types Packs/Day Years [...] on filedocumented in this encounter Care Teams Md Ophthalmologist Relationship Specialty Start Date End Date Jacinto Chaudhary MD [address] [place] [address] [place] [id number] PCP - General 09/22/16 08/02/22 documented as of this encounter
--- OUTSIDE RECORDS SUMMARY | 2024-10-20 10:23 | XMS_ITS | Encounter Summary ---
Author Organization [facility] Address [address] [place] [address] Phone Care Team Providers Care Decating Machine Operator Name Role Phone Jacinto Chaudhary MD Primary Care Provider [phone] Encounter Details Date Type Department Care Team (Late st Contact Info) Description 08/19/2010 Documentation [facility] [place] Family Medicine [address] [place] [address] Family Medicine, Physician [address] [place] [address] Social History Tobacco Use Types Packs/Day Years [...] on filedocumented in this encounter Care Teams Decating Machine Operator Relationship Specialty Start Date End Date Jacinto Chaudhary MD [address] [place] [address] [place] [phone] PCP - General 09/22/16 08/02/22 documented as of this encounter
--- OUTSIDE RECORDS SUMMARY | 2024-10-20 10:23 | XMS_ITS | Encounter Summary ---
Author Organization [facility] Address [address] [place] [address] Phone Care Team Providers Care Industrial Engineering Name Role Phone Jacinto Chaudhary MD Primary Care Provider [phone] Encounter Details Date Type Department Care Team (Late st Contact Info) Description 04/14/2016 Documentation [facility] [place] Medicine [address] [place] [address] Family Medicine, Physician [address] [place] [address] Social History Tobacco Use Types Packs/Day Years [...] on filedocumented in this encounter Care Teams Industrial Engineering Relationship Specialty Start Date End Date Jacinto Chaudhary MD [address] [place] [address] [place] [phone] PCP - General 09/22/16 08/02/22 documented as of this encounter
--- OUTSIDE RECORDS SUMMARY | 2024-10-20 10:23 | XMS_ITS | Encounter Summary ---
Author Organization [facility] Address [address] [place] [address] Phone Care Team Providers Care Business Services Intern Name Role Phone Jacinto Chaudhary MD Primary Care Provider [phone] Encounter Details Date Type Department Care Team (Late st Contact Info) Description 04/13/2016 Documentation [facility] [place] Family Medicine [address] [place] [address] Family Medicine, Physician [address] [place] [address] Social History Tobacco Use Types Packs/Day Years [...] on filedocumented in this encounter Care Teams Business Services Intern Relationship Specialty Start Date End Date Jacinto Chaudhary MD [address] [place] [address] [place] [phone] PCP - General 09/22/16 08/02/22 documented as of this encounter
--- OUTSIDE RECORDS SUMMARY | 2024-10-20 10:23 | XMS_ITS | Clinical Summary ---
Author Organization [facility] Address [address] [place] [address] Phone Care Team Providers Care Statement Clerk Name Role Phone Unavailable Primary Care Provider Unavailabl e Allergies Active Allergy Reactions Criticality Noted Date Comments Amoxicillin Hives Medications CONCERTA 27 MG CR tablet 0 8 Active Spacer/Aero-Holdi ng Chambers (OptiChamber Margie) miscIndications:M ild intermittent asthma without complication Use as directed 1 each 2 Active fluticasone HFA (Flovent HFA) 110 MCG/ACT inhalerIndication s:Mild intermittent asthma with acute exacerbation Inhale 2 puffs in the morning and 2 puffs before bedtime. Rinse mouth with water after use, do not swallow.. 1 Units 6 2 Active ibuprofen 400 MG tablet TAKE 1-2 TABLETS BY MOUTH EVERY 6 TO 8 HOURS NEEDED FOR PAIN 2 Active albuterol HFA 108 (90 Base) MCG/ACT inhalerIndication s:Mild intermittent asthma without complication Inhale 2 puffs every 4 (four) hours as needed for wheezing or shortness of breath. 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 Mild persistent asthma without complication 04/13 Overview (05/08/2018): occ albuterol use Myopia of both eyes 05/08/2018 Immunizations Immunization Administration Dates Next Due COVID-19 Pfizer, bivalent, 12+ years 11/03/2021 DTaP 5 02/02/2005, 3,07/18/2001,06/10,02/25/2001 H1N1 01/21/2009,12/11/2008 HPV, Quadrivalent 10/10/2013,05/08/2013,04/03/19 14 Hep A, ped/adol 10/10/2013,04/03/2013 Hep B, ped/adol 10/21/2001,01/24/2001,2000 Hib (PRP-T) 04/07/2002, 2,06/10/2001,02/25 IPV 02/02/2005, 3,06/10/2001,02/25 Influenza Split 02/26/2013,02/15/2011 Influenza, injectable, quadrivalent 11/24/2015,0 04/08/2015 Influenza, injectable, quadr ivalent, preservative free 11/03/2021,11/13/2020,11/07/2019,11/11,05/08/2018,03/05/2017,11/08/2013 Influenza, injectable, trivalent 01/21/2009,01/14 Influenza, intranasal, trivalent 02/10/2010 MMR 02/02/2005,01/02/2002 Meningococcal B Trumenba 09/24/2019 Meningococcal Conj (Menactra) MCV4P 04/25/2017,0 03/13/2012 Pneumococcal Conjugate 07/03/2002,2001,06/10/2001,02/25 Tdap 03/13/2012 Varicella 02/11/2008,01/02/2002 Family History Medical History Relation Name Comments No Known Problems Brother 1 adilene No Known Problems Brother 2 mehul No Known Problems Father derek No Known Problems Half-Sister 1 pasquale No Known Problems Half-Sister 2 ciro No Known Problems Mother deedee Seizures Mother's Sister Asthma Other Colon cancer Other Deafness Other Diabetes Other Heart disease (Premature) Other Hyperlipidemia Other Leukemia Other Obesity Other Stroke Other Relation Name Status Comments Brother 1 adilene Alive Brother: Alive and well, Alive and well Brother 2 taeshon Alive Brother: Alive and well, Alive and well Father derek Alive paternal Family h/o: Diabetes mellitus Half-Sister 1 pasquale Alive Half-Sister 2 ciro Alive Maternal Grandfather Materna l grandfather: , Cirrhosis Maternal Grandmother Materna l grandmother: Asthma Mother deedee Alive Mother: Alive a nd well Mother's Sister Other Family history of Deafness, Family history of *Dental caries, Family history of Allergies, Family history of Heart disease, Family history of *CVA/Stroke, Family history of Hyperlipidemia, Family history of Cancer, colon Social History Tobacco Use Types Packs/Day Years Used Date Smoking Tobacco: Never Smokeless Tobacco: Never Alcohol Use Standard Drinks/Week Comments No 0 (1 standard drink = 0.6 oz pur e alcohol) Hunger/Food Answer Date Recorded In the last 12 months, did y ou or your family ever eat less than you felt you should because there wasn't enough money for food? No 09/29/2020 Stable Housing Answer Date Recorded Are you worried that in the next 2 months you may not have stable housing? No 09/29/2020 Transportation Concerns Answer Date Rec orded In the last 12 months, have you or your family ever had to go without healthcare because you didn't have a way to get there? No 09/29/2020 Hazards in Home Answer Date Recorded Think about the place you li ve. Do you have problems with any of the following? Pests (mice or roaches), mold, no/not working smoke detectors, water leaks, no window guards. No 2020 Financing Utilities Answer Date Recorde d In the last 12 months, has t he electric, gas, oil, or water company threatened to shut off your services in your home? No 09/29/2020 Safety at Home Answer Date Recorded Are you or your family worried about feeling saf e in your home? No 09/29/2020 Outside Support Answer Date Recorded Do you feel that you need mo re support from other people or programs to help you care for yourself or your family? No 09/29/2020 Understanding Health Concerns Answer Da te Recorded Do you need help understandi ng your or your child's healthcare needs (diagnosis, medications, plan, etc.)? No 09/29/2020 Financing Health Concerns Answer Date R ecorded In the last 12 months, was t here a time when your child needed to see a doctor or get medications or supplies but could not because of cost? No 09/29/2020 Missing School or Work Answer Date Shoaib rded Did you or your child miss s chool or work because of a health problem that could have been avoided? No 09/29/2020 Sex and Gender Information Value Date Recorded Sex Assigned at Male 09/24/2019 9:10 AM EDT Legal Sex Male 5:13 PM EDT Gender Identity Male 09/24/2019 9:10 AM EDT Sexual Orientation Straight 09/24/2019 9: 10 AM EDT Last Filed Vital Signs Vital Sign Reading Time Taken Comments Blood Pressure 118/72 06/29/2021 4:43 PM EDT Pulse 66 06/29/2021 4:43 PM EDT Temperature 36.7 C (98.1 F) 11/03/2021 8:25 AM EDT Respiratory Rate 24 04/12/2020 3:53 PM EST Oxygen Saturation 98% 01/05/2021 5:02 PM EST Inhaled Oxygen Concentration - - Weight 101 kg (223 lb) 11/03/2021 8:25 AM EDT Height 172.1 cm (5' 7.75 ) 06/29/2021 4:43 PM ED T Body Mass Index 34.16 06/29/2021 4:43 PM EDT Plan of Treatment Health Maintenance Due Date Last Done Comments Men B Vaccine (2 of 2 - Trum enba SCDM 2-dose series) 03/26/2020 09/24/2019 DTaP,Tdap,and Td Vaccines (7 - Td or Tdap) 03/13/2022 03/13/2012, 02/02/2005, 07/03/2002, Additional history exists Influenza Vaccines (#1) 2024 11/04/19, 11/13/2020, 11/07/2019, Additional history exists COVID-19 Vaccine (2024-2 6 season) 2024 11/03/2021, 01/15/2021, 06/23/2020, Additional history exists Hepatitis B Vaccines Completed 10/21/2001, 01/24/2001, 2000 HIB Vaccines Completed 04/07/2002, 07/2001, 06/10/2001, Additional history exists Pneumococcal Vaccine Completed 07/03/2002, 07/18/2001, 06/10/2001, Additional history exists IPV Vaccines Completed 02/02/2005, 06/13, 06/10/2001, Additional history exists MMR Vaccines Completed 02/02/2005, 01/02/2002 Varicella Vaccines Completed 02/11/2008, 01/02/2002 HPV Vaccines Completed 10/10/2013, 04/13, 04/03/2013 Hepatitis A Vaccines Completed 10/10/2013, 04/03/19 14 Meningococcal Vaccine Completed 04/25/2017, 013
--- OUTSIDE RECORDS SUMMARY | 2024-10-20 10:23 | XMS_ITS | Encounter Summary ---
Author Organization [facility] Address [address] [place] [address] Phone Care Team Providers Care Captain Room Service Name Role Phone Jacinto Chaudhary MD Primary Care Provider [phone] Encounter Details Date Type Department Care Team (Late st Contact Info) Description 04/04/2013 Documentation [facility] Family Medicine [address] [place] [address] Family Medicine, Physician [address] [place] [address] Social History Tobacco Use Types Packs/Day Years [...] on filedocumented in this encounter Care Teams Captain Room Service Relationship Specialty Start Date End Date Jacinto Chaudhary MD [address] [place] [address] [place] [phone] PCP - General 09/22/16 08/02/22 documented as of this encounter
--- OUTSIDE RECORDS SUMMARY | 2024-10-20 10:23 | XMS_ITS | Encounter Summary ---
Author Organization [facility] Address [address] [place] [address] Phone Care Team Providers Care Napping Machine Operator Name Role Phone Jacinto Chaudhary MD Primary Care Provider [phone] Encounter Details Date Type Department Care Team (Late st Contact Info) Description 10/14/2013 Documentation [facility] Family Medicine [address] [place] [address] Family Medicine, Physician [address] [place] [address] Social History Tobacco Use Types Packs/Day Years [...] on filedocumented in this encounter Care Teams Napping Machine Operator Relationship Specialty Start Date End Date Jacinto Chaudhary MD [address] [place] [address] [place] [phone] PCP - General 09/22/16 08/02/22 documented as of this encounter
--- OUTSIDE RECORDS SUMMARY | 2024-10-20 10:23 | XMS_ITS | Encounter Summary ---
Author Organization [facility] Address [address] [place] [address] Phone Care Team Providers Care Filler Block Inserter Remover Name Role Phone Jacinto Chaudhary MD Primary Care Provider [phone] Encounter Details Date Type Department Care Team (Late st Contact Info) Description 02/16/2011 Documentation [facility] [place] Family Medicine [address] [place] [address] Family Medicine, Physician [address] [place] [address] Social History Tobacco Use Types Packs/Day Years [...] on filedocumented in this encounter Care Teams Filler Block Inserter Remover Relationship Specialty Start Date End Date Jacinto Chaudhary MD [address] [place] [address] [place] [phone] PCP - General 09/22/16 08/02/22 documented as of this encounter
--- OUTSIDE RECORDS SUMMARY | 2024-10-20 10:23 | XMS_ITS | Encounter Summary ---
Author Organization [facility] Address [address] [place] [address] Phone Care Team Providers Care R&D Engineer Name Role Phone Jacinto Chaudhary MD Primary Care Provider [phone] Encounter Details Date Type Department Care Team (Late st Contact Info) Description 09/28/2016 Conversion Encounter [facility] [place] [address] [place] [address] Social History Tobacco Use Types Packs/Day Years [...] on filedocumented in this encounter Care Teams R&D Engineer Relationship Specialty Start Date End Date Jacinto Chaudhary MD [address] [facility] [place] [address] PCP - General 09/22/16 08/02/22 documented as of this encounter
--- OUTSIDE RECORDS SUMMARY | 2024-10-20 10:23 | XMS_ITS | Encounter Summary ---
Author Organization [facility] Address [address] [place] [address] Phone Care Team Providers Care Android Programmer Name Role Phone Jacinto Chaudhary MD Primary Care Provider [phone] Encounter Details Date Type Department Care Team (Late st Contact Info) Description 03/14/2012 Documentation [facility] [place] Family Medicine [address] [place] [address] Family Medicine, Physician [address] [place] [address] Social History Tobacco Use Types Packs/Day Years [...] on filedocumented in this encounter Care Teams Android Programmer Relationship Specialty Start Date End Date Jacinto Chaudhary MD [address] [place] [address] [place] [phone] PCP - General 09/22/16 08/02/22 documented as of this encounter
--- OUTSIDE RECORDS SUMMARY | 2024-10-20 10:23 | XMS_ITS | Encounter Summary ---
Author Organization [facility] Address [address] [place] [address] Phone Care Team Providers Care Consumer Experience Consultant Name Role Phone Jacinto Chaudhary MD Primary Care Provider [phone] Encounter Details Date Type Department Care Team (Late st Contact Info) Description 04/09/2015 Documentation [facility] [place] Family Medicine [address] [place] [address] Family Medicine, Physician [address] [place] [address] Social History Tobacco Use Types Packs/Day Years [...] on filedocumented in this encounter Care Teams Consumer Experience Consultant Relationship Specialty Start Date End Date Jacinto Chaudhary MD [address] [place] [address] [place] [phone] PCP - General 09/22/16 08/02/22 documented as of this encounter
--- OUTSIDE RECORDS SUMMARY | 2024-10-20 10:23 | XMS_ITS | Encounter Summary ---
Author Organization [facility] Address [address] [place] [address] Phone Care Team Providers Care Splash Line Operator Name Role Phone Jacinto Chaudhary MD Primary Care Provider Encounter Details Date Type Department Care Team (Late st Contact Info) Description 11/25/2015 Documentation [facility] [place] Medicine [address] [place] [address] Family Medicine, Physician [address] [place] [address] Social History Tobacco Use Types Packs/Day Years [...] on filedocumented in this encounter Care Teams Splash Line Operator Relationship Specialty Start Date End Date Jacinto Chaudhary MD [address] [place] [address] [place] [id number] PCP - General 09/22/16 08/02/22 documented as of this encounter
--- OUTSIDE RECORDS SUMMARY | 2024-10-20 10:23 | XMS_ITS | Encounter Summary ---
Author Organization [facility] Address [address] [place] [address] Phone Care Team Providers Care Asphalt Tamper Name Role Phone Jacinto Chaudhary MD Primary Care Provider [phone] Encounter Details Date Type Department Care Team (Late st Contact Info) Description 04/09/2015 Documentation [facility] Family Medicine [address] [place] [address] Family Medicine, Physician [address] [place] [address] Social History Tobacco Use Types Packs/Day Years [...] on filedocumented in this encounter Care Teams Asphalt Tamper Relationship Specialty Start Date End Date Jacinto hCaudhary MD [address] [place] [address] [place] [phone] PCP - General 09/22/16 08/02/22 documented as of this encounter
== END 2024-10-20 09:17 | disposition home or self-care (01) ==
LOC: HO.HMGAL 09:15
PROVIDERS: PCP Physician Assistant; Visit Provider Registered Nurse Emergency
DX: J30.89 Other allergic rhinitis (principal)
CPT/HCPCS: 95117; 95165

== ENCOUNTER 2024-10-23 14:17 | Outpatient (AMB) | payer OTHER, MEDICAID, SELFPAY ==
--- NOTE | 2024-10-23 14:39 | MHC.PC.OV ---
Vital Signs 10/23/24 14:40 Height 5 ft 7.5 in Weight 210 lb 2 oz BMI 32.4 BP 120/86 Blood Pressure Location Lt brachial Position Sitting Pulse 84 Pulse Source Pulse Oximeter Temp 97.5 F Temp Source Temporal Artery Scan Pulse Oximetry (%) 99 Oxygen Delivery Method Room Air Intake Visit Reasons: Annual Exam Allergies amoxicillin Allergy (Severe, Verified 10/23/24 14:54) Rash Medication List - Last Reconciled 10/23/24 by Jl Donaldson PA-C albuterol sulfate 90 mcg/actuation 1 inh inhalation QID PRN 30 days budesonide-formoterol 160-4.5 mcg/actuation (Symbicort) 1 puff inhalation BID 30 days cetirizine (Zyrtec) 10 mg PO DAILY 90 days diphenhydramine HCl (Benadryl Allergy) 25 mg PO BEDTIME PRN epinephrine (EpiPen) 0.3 mg IM Q4H PRN Tobacco use date assessed: 10/23/24 Dental Screening Dental Screen Date: 10/23/24 Did you have a dental visit in the last 12 months?: No Did you have a dental problem in the last 6 months where you did not have access to dental care?: No Was dental information given to patient?: Patient has dentist HPI Annual Exam HPI Details Patient is a 23-year-old male here today for annual physical Patient has a past medical history significant for moderate persistent asthma and obesity. .. Asthma: He reports his asthma is fairly well controlled with use of his Symbicort and p.r.n. use of his albuterol inhaler. He denies any recent asthma exacerbations or nighttime awakenings with asthma symptoms .. Class 1 Obesity: Has lost weight since last office visit Has been able to lose a few lb since last office visit. He does understand his BMI is over 30 and will work on being more physically active and adapting to better eating habits to reduce his weight. .. : Vaccines: Up-to-date with COVID vaccine, needs tetanus vaccine, considering flu vaccine PFSH Family History Mother No problems noted. Father No problems noted. Sister No problems noted. Sister No problems noted. Brother No problems noted. Brother No problems noted. Social History Housing: Other (with parents) Alcohol intake: current Alcohol intake frequency: holidays/special occasions only Alcohol type: hard liquor Patient Tobacco Use Status: Never used Tobacco e-Cigarette/Vaping Use: Never Used Second Hand Smoke Exposure: No Current occupational status: employed Current occupation: [employer] Cognitive needs: No Hearing needs: No Vision needs: Yes Questionnaire PHQ-9 Over the last 2 weeks, how often have you been bothered by any of the following problems? 1. Little interest or pleasure in doing things: nearly every day 2. Feeling down, depressed, or hopeless: not at all 3. Trouble falling or staying asleep, or sleeping too much: not at all 4. Feeling tired or having little energy: not at all 5. Poor appetite or overeating: not at all 6. Feeling bad about yourself - or that you are a failure or have let yourself or your family down: not at all 7. Trouble concentrating on things, such as reading the newspaper or watching television: nearly every day 8. Moving or speaking so slowly that other people could have noticed. Or the opposite - being so fidgety or restless that you have been moving around a lot more than usual: nearly every day 9. Thoughts that you would be better off or of hurting yourself in some way: not at all Total score: 9 Depression Screening Interpretation: Positive Depression Screening Done: Yes 51339 - PHQ-9 Billing: Yes Source: Developed by Drs. Jack Ray, Alena Rodriguez, Delio Fan and colleagues, with an educational airam from [employer]. Thrive Questionnaire Date Thrive assessed: 10/16/24 I am a: Patient What is your living situation today?: I have a steady place to live Within the past 12 months, did the food you bought not last and you didn't have the money to get more?: Never true Within the past 12 months, did you worry whether your food would run out before you got money to buy more?: Never true Do you have trouble paying for medicines?: No Do you have trouble getting transportation to medical appointments?: No Do you have trouble paying your heating and electricity bill?: No Do you have trouble taking care of your child, family member or friend?: No Do you have trouble with day-to-day activities such as bathing, preparing meals, shopping, managing finances, etc.?: No Are you currently unemployed and looking for a job?: No Are you interested in more education?: No Please select the resources that you would like help with: Paying for medicine Currently or been in a relationship where the following occur: No concerns reported THRIVE Score: 0 AUDIT C Alcohol Use Questionnaire (AUDIT-C) 1. How often do you have a drink containing alcohol?: Monthly or less 2. How many drinks containing alcohol do you have on a typical day when you are drinking?: 3 or 4 3. How often do you have six or more drinks on one occasion?: Never Total Score: 2 MARILYN-7 AMB Questionnaire MARILYN-7 Date MARILYN - 7 assessed: 10/23/24 Feeling nervous, anxious, or on edge: 3 = Nearly every day Not being able to stop or control worryin = More than half the days Worrying too much about different things: 3 = Nearly every day Trouble relaxin = Several days Being so restless that it is hard to sit still: 1 = Several days Becoming easily annoyed or irritable: 1 = Several days Feeling afraid as if something awful might happen: 0 = Not at all Total MARILYN-7 score (0-4 normal; 5-9 mild; 10-14 moderate; 15-21 severe): 11 Source: Developed by Drs. Jack Ray, Alena Rodriguez, Delio Fan and colleagues, with an educational airam from [employer]. MARILYN-7 Assessment Billing MARILYN-7 Assessment Tool: MARILYN-7 Assessment 64570 ACT Questionnaire In the past 4 weeks, how much of the time did your asthma keep you from getting as much done at work, school or at home?: None of the time During the past 4 weeks, how often have you had shortness of breath?: Not at all During the past 4 weeks, how often did your asthma symptoms wake you up at night or earlier than usual in the morning?: Not at all During the past 4 weeks, how often have you had to use your rescue inhaler or nebulizer medication?: Once a week or less How would you rate your asthma control during the past 4 weeks?: Completely controlled ACT Interpretation: Negative Score: 24 Review of Systems Const Denies body aches, Denies chills, Denies excessive sweating, Denies fatigue, Denies fever(s) and Denies headache(s) Eyes Denies blurry vision ENT Denies dysphagia, Denies vertigo, Denies dizziness, Denies headache(s), Denies hearing loss and Denies tinnitus Card Denies chest pain, Denies chest pain with activity, Denies syncope, Denies irregular heart rhythm and Denies dyspnea Resp Denies chest congestion, Denies cough, Denies hemoptysis, Denies dyspnea and Denies wheezing GI Denies abdominal pain, Denies melena, Denies hematochezia, Denies coffee ground emesis, Denies dysphagia, Denies diarrhea, Denies nausea and Denies vomiting Denies difficulty urinating, Denies dysuria, Denies urinary frequency, Denies urinary hesitancy and Denies urinary urgency Musc Denies arthralgias, Denies limited range of motion, Denies muscle cramps and Denies muscle weakness Skin/Breast Denies rash and Denies skin ulcer Neuro Denies Abnormal speech present, Denies confusion, Denies vertigo, Denies dizziness, Denies syncope, Denies headache(s), Denies memory loss and Denies seizure-like activity Psych Denies anxiety, Denies confusion, Denies depression, Denies memory loss, Denies panic attacks and Denies paranoia Endo Denies excessive sweating, Denies fatigue, Denies flushing, Denies polydipsia and Denies polyuria Aller/Immun Denies wheezing Physical exam (Primary Care) Vital Signs: Last Vital Signs Temp 97.5 F 10/23/24 14:40 Pulse 84 10/23/24 14:40 BP 120/86 10/23/24 14:40 Pulse Ox 99 10/23/24 14:40 Oxygen Delivery Method Room Air 10/23/24 14:40 BMI result Body Mass Index 32.4 BMI Assessment/Plan discussion: High BMI High, discussed plan: lifestyle, weight reduction, dietary and physical activity Tobacco/Smoking Status: Tobacco use Status Tobacco use date assessed 10/23/24 10/23/24 14:45 Patient Tobacco Use Status Never used Tobacco 10/23/24 14:45 e-Cigarette/Vaping Use Never Used 10/23/24 14:45 PHQ-9: PHQ-9 Score PHQ-9: Total score 9 10/23/24 14:57 Depression Screening Interpretation: Positive Thrive Assessment: Date of Thrive Assessment Date Thrive assessed 10/16/24 10/23/24 14:45 Currently or been in a relationship where the following occur: No concerns reported Const General: cooperative, comfortable, no acute distress, alert and awake; No confusion Orientation/consciousness: oriented to person, oriented to place, patient oriented x3 and No confusion HENMT Head: Yes normocephalic Ears: external ears normal and TM's normal bilaterally Face and sinus: No sinus tenderness Mouth: Normal oral and palatal mucosa present and tongue normal Teeth and gingiva: dentition normal and gingiva normal Throat: Yes posterior oropharynx normal, Yes tonsils normal and Yes uvula midline Eyes Conjunctivae: conjunctivae normal Sclerae: sclerae normal Pupils: Equal, round and reactive pupils present EOM: EOMs intact bilaterally Direct Ophthalmoscopy: No no photophobia Neck Neck: Yes no lymphadenopathy, No tender and Yes no JVD Thyroid: Thyroid normal Carotids: no bruits Chest Chest palpation & inspection: no tenderness Resp Effort & Inspection: normal respiratory effort, no audible wheezes, not labored and no stridor Auscultation: no crackles, no rales, no rhonchi and no wheezes Cardio Jugular venous distension: no JVD Rate: regular rate, not bradycardic and not tachycardic Rhythm: regular rhythm Bruits: no carotid bruits Peripheral pulses: Peripheral pulses 2+ throughout GI Inspection: Yes normal to inspection, No abdominal wall ecchymosis and No visible herniation Palpation (GI): Soft to palpation, nontender, no guarding, not rigid and No hepatosplenomegaly present Auscultation: normoactive bowel sounds General: Yes no CVA tenderness Back/Spine/Pelvis Back: no CVA tenderness and No back tenderness Cervical Spine: cervical ROM normal Thoracic/Lumbar Spine: thoracic and lumbar spine normal to inspection, straight leg raise negative bilaterally, No thoraco-lumbar ROM limited and No lumbar spinal tenderness Skin Lesions: no lesions Rashes: no rashes Wounds: no wounds Neuro General: oriented to person, oriented to place, patient oriented x3, CN's II-XI intact bilaterally and No confusion Cranial nerves: Yes Equal, round and reactive pupils present and Yes Normal accommodation reflex present Cognition (Neuro): normal cognition Speech: No Abnormal speech present Gait exam (Neuro): Normal gait present Motor exam (neuro): 5/5 motor strength present throughout Extrem Right upper extremity: full ROM; no cyanosis Left upper extremity: full ROM; no cyanosis Right lower extremity: no edema Left lower extremity: no edema Psych Appearance: grossly normal Mental Status: mental status grossly normal Affect: normal affect Attitude: cooperative Thought process: Normal thought process present Immunizations Boostrix Tdap 2.5 Lf unit-8 mcg-5 Lf/0.5 mL intramuscular syringe Performing Provider: Jl Donaldson PA-C [facility] Administered by: Monica Romo CMA on 10/23/24 15:09 Dose Route Admin Location Dispensed Lot Number Expiration Date [place] Registrar [employer] 0.5 mL IM Left Deltoid 0.5 mL [id number] 01/01/27 [id number] Pocket Change Card Total Dispensed Waste 0.5 mL 0 % VIS Given Date VIS Provided VIS Publication Date 10/23/24 Single Vaccine 20 Eligibility Eligibility Date Funding Source Not [facility] Eligible 10/23/24 Private Coding Level of Care Code Est Pt Prev Care 18-39y(72650) Diagnoses Annual physical exam Z00.00 Mild persistent asthma without complication J45.30 Asthma severity: mild Asthma persistence: persistent Asthma complication type: uncomplicated Class 1 obesity E66.811 Additional Codes MARILYN-7 Assessment Billing - MARILYN-7 Assessment Tool: MARILYN-7 Assessment 71832 ([id number]) PHQ-9 - 80513 - PHQ-9 Billing: Yes ([id number]) Asthma Control Questionnaire - ACT Interpretation: Negative ([id number]) Assessment & Plan Assessment & Plan (1) Annual physical exam: Code(s): Z00.00 - Encounter for general adult medical examination without abnormal findings Category: Medical Plan: As per HPI (2) Asthma: Code(s): J45.909 - Unspecified asthma, uncomplicated Category: Medical Qualifiers: Asthma severity: mild Asthma persistence: persistent Asthma complication type: uncomplicated Qualified Code(s): J45.30 - Mild persistent asthma, uncomplicated Plan: Patient reports his asthma is fairly well controlled, has not had any recent asthma exacerbations or nighttime awakenings with asthma symptoms. (3) Class 1 obesity: Code(s): E66.811 - Obesity, class 1 Category: Medical Plan: Patient has been able to lose weight since last office visit. He reports he has been going to the gym lately. BMI is though remains above 30 will continue being physically active and adapting to better eating habits to reduce his weight Orders: Orders TDaP Immunization Today Z13.1 - Encounter for screening for diabetes mellitus, Z23 - Encounter for immunization Comprehensive [place]. Panel Fast Today Z13.1 - Encounter for screening for diabetes mellitus Complete Blood Count no Diff Today Z13.1 - Encounter for screening for diabetes mellitus Medications: Refilled budesonide-formoterol 160-4.5 mcg/actuation (Symbicort) 1 puff inhalation BID 30 days 10.2 grams 3RF J45.30 - Mild persistent asthma, uncomplicated budesonide-formoterol 160-4.5 mcg/actuation (Symbicort) 1 puff inhalation BID 10.2 grams 3RF 30 days J45.30 - Mild persistent asthma, uncomplicated cetirizine (Zyrtec) 10 mg PO DAILY 90 tabs 1RF 90 days J45.30 - Mild persistent asthma, uncomplicated albuterol sulfate 90 mcg/actuation 1 inh inhalation QID 30 days PRN 8.5 grams 3RF shortness of breath or wheezing J45.30 - Mild persistent asthma, uncomplicated cetirizine (Zyrtec) 10 mg PO DAILY 90 days 90 tabs 1RF J45.30 - Mild persistent asthma, uncomplicated albuterol sulfate 90 mcg/actuation 1 inh inhalation QID PRN 8.5 grams 3RF shortness of breath or wheezing 30 days J45.30 - Mild persistent asthma, uncomplicated
[2024-10-23 14:40] VITALS: BP 120/86; PULSE 84; TEMP 36.4; O2SAT 99; BMI 32.4
--- OUTSIDE RECORDS SUMMARY | 2024-10-23 18:03 | XMS_ITS | Encounter Summary ---
Author Organization [facility] Address [address] [place] [address] Phone Care Team Providers Care Skating Rink Manager Name Role Phone Jacinto Chaudhary MD Primary Care Provider [phone] Encounter Details Date Type Department Care Team (Late st Contact Info) Description 03/14/2012 Documentation [facility] [place] Family Medicine [address] [place] [address] Family Medicine, Physician [address] [place] [address] Social History Tobacco Use Types Packs/Day Years [...] on filedocumented in this encounter Care Teams Skating Rink Manager Relationship Specialty Start Date End Date Jacinto Chaudhary MD [address] [place] [address] [place] [id number] PCP - General 09/22/16 08/02/22 documented as of this encounter
--- OUTSIDE RECORDS SUMMARY | 2024-10-23 18:03 | XMS_ITS | Encounter Summary ---
Author Organization [facility] Address [address] [place] [address] Phone Care Team Providers Care Motion Picture Photographer Name Role Phone Jacinto Chaudhary MD Primary Care Provider [phone] Encounter Details Date Type Department Care Team (Late st Contact Info) Description 08/19/2010 Documentation [facility] [place] Family Medicine [address] [place] [address] Family Medicine, Physician [address] [place] [address] Social History Tobacco Use Types Packs/Day Years [...] on filedocumented in this encounter Care Teams Motion Picture Photographer Relationship Specialty Start Date End Date Jacinto Chaudhary MD [address] [place] [address] [place] [id number] PCP - General 09/22/16 08/02/22 documented as of this encounter
--- OUTSIDE RECORDS SUMMARY | 2024-10-23 18:03 | XMS_ITS | Encounter Summary ---
Author Organization [facility] Address [address] [place] [address] Phone Care Team Providers Care Industrial Coffee Grinder Name Role Phone Jacinto Chaudhary MD Primary Care Provider [phone] Encounter Details Date Type Department Care Team (Late st Contact Info) Description 05/09/2013 Documentation [facility] [place] Family Medicine [address] [place] [address] Family Medicine, Physician [address] [place] [address] Social History Tobacco Use Types Packs/Day Years [...] filedocumented in this encounter Care Teams Industrial Coffee Grinder Relationship Specialty Start Date End Date Jacinto Chaudhary MD [address] [place] [address] [place] [phone] PCP - General 09/22/16 08/02/22 documented as of this encounter
--- OUTSIDE RECORDS SUMMARY | 2024-10-23 18:03 | XMS_ITS | Encounter Summary ---
Author Organization [facility] Address [address] [place] [address] Phone Care Team Providers Care Verification Engineer Name Role Phone Jacinto Chaudhary MD Primary Care Provider [phone] Encounter Details Date Type Department Care Team (Late st Contact Info) Description 11/10/2013 Documentation [facility] [place] Family Medicine [address] [place] [address] Family Medicine, Physician [address] [place] [address] Social History Tobacco Use Types Packs/Day Years [...] on filedocumented in this encounter Care Teams Verification Engineer Relationship Specialty Start Date End Date Jacinto Chaudhary MD [address] [place] [address] [place] [id number] PCP - General 09/22/16 08/02/22 documented as of this encounter
--- OUTSIDE RECORDS SUMMARY | 2024-10-23 18:03 | XMS_ITS | Encounter Summary ---
Author Organization [facility] Address [address] [place] [address] Phone Care Team Providers Care Machine Taper Name Role Phone Jacinto Chaudhary MD Primary Care Provider [phone] Encounter Details Date Type Department Care Team (Late st Contact Info) Description 10/14/2013 [place]ation [facility] [place] [address] [place] [address] Family Medicine, Physician [address] [place] [address] Social History Tobacco Use Types Packs/Day Years [...] on filedocumented in this encounter Care Teams Machine Taper Relationship Specialty Start Date End Date Jacinto Chaudhary MD [address] [place] [address] [place] [id number] PCP - General 09/22/16 08/02/22 documented as of this encounter
--- OUTSIDE RECORDS SUMMARY | 2024-10-23 18:03 | XMS_ITS | Encounter Summary ---
Author Organization [facility] Address [address] [place] [address] Phone Care Team Providers Care Chief Digital Media Officer Name Role Phone Jacinto Chaudhary MD Primary Care Provider [phone] Encounter Details Date Type Department Care Team (Late st Contact Info) Description 09/28/2016 Conversion Encounter [facility] [place] [address] [place] [address] Social History Tobacco Use Types Packs/Day Years [...] on filedocumented in this encounter Care Teams Chief Digital Media Officer Relationship Specialty Start Date End Date Jacinto Chaudhary MD [address] [facility] [place] [address] PCP - General 09/22/16 08/02/22 documented as of this encounter
--- OUTSIDE RECORDS SUMMARY | 2024-10-23 18:03 | XMS_ITS | Clinical Summary ---
Author Organization [facility] Address [address] [place] [address] Phone Care Team Providers Care Side Door Man Name Role Phone Unavailable Primary Care Provider [...]
--- OUTSIDE RECORDS SUMMARY | 2024-10-23 18:03 | XMS_ITS | Encounter Summary ---
Author Organization [facility] Address [address] [place] [address] Phone Care Team Providers Care Apprentice Machinist Outside Name Role Phone Jacinto Chaudhary MD Primary Care Provider [phone] Encounter Details Date Type Department Care Team (Late st Contact Info) Description 02/16/2011 Documentation [facility] [place] Family Medicine [address] [place] [address] Family Medicine, Physician [address] [place] [address] Social History Tobacco Use Types Packs/Day Years [...] on filedocumented in this encounter Care Teams Apprentice Machinist Outside Relationship Specialty Start Date End Date Jacinto Chaudhary MD [address] [place] [address] [place] [phone] PCP - General 09/22/16 08/02/22 documented as of this encounter
--- OUTSIDE RECORDS SUMMARY | 2024-10-23 18:03 | XMS_ITS | Encounter Summary ---
Author Organization [facility] Address [address] [place] [address] Phone Care Team Providers Care Peanut Separator Name Role Phone Jacinto Chaudhary MD Primary Care Provider [phone] Encounter Details Date Type Department Care Team (Late st Contact Info) Description 11/25/2015 Documentation [facility] [place] Family Medicine [address] [place] [address] Family Medicine, Physician [address] [place] [address] Social History Tobacco Use Types Packs/Day Years [...] on filedocumented in this encounter Care Teams Peanut Separator Relationship Specialty Start Date End Date Jacinto Chaudhary MD [address] [place] [address] [place] [phone] PCP - General 09/22/16 08/02/22 documented as of this encounter
--- OUTSIDE RECORDS SUMMARY | 2024-10-23 18:03 | XMS_ITS | Encounter Summary ---
Author Organization [facility] Address [address] [place] [address] Phone Care Team Providers Care Telecommunications Field Technician Name Role Phone Jacinto Chaudhary MD Primary Care Provider [phone] Encounter Details Date Type Department Care Team (Late st Contact Info) Description 02/16/2011 Documentation [facility] [place] Family Medicine [address] [place] [address] Family Medicine, Physician [address] [place] [address] Social History Tobacco Use Types Packs/Day Years [...] on filedocumented in this encounter Care Teams Telecommunications Field Technician Relationship Specialty Start Date End Date Jacinto Chaudhary MD [address] [place] [address] [place] [id number] PCP - General 09/22/16 08/02/22 documented as of this encounter
--- OUTSIDE RECORDS SUMMARY | 2024-10-23 18:03 | XMS_ITS | Encounter Summary ---
Author Organization [facility] Address [address] [place] [address] Phone Care Team Providers Care Brake Repairer Air Name Role Phone Jacinto Chaudhary MD Primary Care Provider [phone] Encounter Details Date Type Department Care Team (Late st Contact Info) Description 04/14/2016 Documentation [facility] [place] Family Medicine [address] [place] [address] Family Medicine, Physician [address] [place] [address] Social History Tobacco Use Types Packs/Day Years [...] on filedocumented in this encounter Care Teams Brake Repairer Air Relationship Specialty Start Date End Date Jacinto Chaudhary MD [address] [place] [address] [place] [phone] PCP - General 09/22/16 08/02/22 documented as of this encounter
--- OUTSIDE RECORDS SUMMARY | 2024-10-23 18:04 | XMS_ITS | Encounter Summary ---
Author Organization [facility] Address [address] [place] [address] Phone Care Team Providers Care Field Return Repairer Name Role Phone Jacinto Chaudhary MD Primary Care Provider [phone] Encounter Details Date Type Department Care Team (Late st Contact Info) Description 02/27/2013 Documentation [facility] [place] Family Medicine [address] [place] [address] Family Medicine, Physician [address] [place] [address] Social History Tobacco Use Types Packs/Day Years [...] on filedocumented in this encounter Care Teams Field Return Repairer Relationship Specialty Start Date End Date Jacinto Chaudhary MD [address] [place] [address] [place] [id number] PCP - General 09/22/16 08/02/22 documented as of this encounter
--- OUTSIDE RECORDS SUMMARY | 2024-10-23 18:04 | XMS_ITS | Encounter Summary ---
Author Organization [facility] Address [address] [place] [address] Phone Care Team Providers Care Roller Inspector Name Role Phone Jacinto Chaudhary MD Primary Care Provider [phone] Encounter Details Date Type Department Care Team (Late st Contact Info) Description 04/26/2010 Documentation [facility] [place] [address] [place] [address] Family Medicine, Physician [address] [place] [address] Social History Tobacco Use Types Packs/Day Years [...] on filedocumented in this encounter Care Teams Roller Inspector Relationship Specialty Start Date End Date Jacinto Chaudhary MD [address] [place] [address] [place] [id number] PCP - General 09/22/16 08/02/22 documented as of this encounter
--- OUTSIDE RECORDS SUMMARY | 2024-10-23 18:04 | XMS_ITS | Encounter Summary ---
Author Organization [facility] Address [address] [place] [address] Phone Care Team Providers Care Lead Software Qa Engineer Name Role Phone Jacinto Chaudhary MD Primary Care Provider [phone] Encounter Details Date Type Department Care Team (Late st Contact Info) Description 04/09/2015 Documentation [facility] [place] Family Medicine [address] [place] [address] Family Medicine, Physician [address] [place] [address] Social History Tobacco Use Types Packs/Day Years [...] on filedocumented in this encounter Care Teams Lead Software Qa Engineer Relationship Specialty Start Date End Date Jacinto Chaudhary MD [address] [place] [address] [place] [phone] PCP - General 09/22/16 08/02/22 documented as of this encounter
--- OUTSIDE RECORDS SUMMARY | 2024-10-23 18:04 | XMS_ITS | Encounter Summary ---
Author Organization [facility] Address [address] [place] [address] Phone Care Team Providers Care Assembly Instructions Writer Name Role Phone Jacinto Chaudhary MD Primary Care Provider [phone] Encounter Details Date Type Department Care Team (Late st Contact Info) Description 04/09/2015 Documentation [facility] [place] Medicine [address] [place] [address] Family Medicine, Physician [address] [place] [address] Social History Tobacco Use Types Packs/Day Years [...] on filedocumented in this encounter Care Teams Assembly Instructions Writer Relationship Specialty Start Date End Date Jacinto Chaudhary MD [address] [place] [address] [place] [phone] PCP - General 09/22/16 08/02/22 documented as of this encounter
--- OUTSIDE RECORDS SUMMARY | 2024-10-23 18:04 | XMS_ITS | Encounter Summary ---
Author Organization [facility] Address [address] [place] [address] Phone Care Team Providers Care Fractionation Plant Supervisor Name Role Phone Jacinto Chaudhary MD Primary Care Provider [phone] Encounter Details Date Type Department Care Team (Late st Contact Info) Description 03/14/2012 Documentation [facility] [place] [address] [place] [address] Family Medicine, Physician [address] [place] [address] Social History Tobacco Use Types Packs/Day Years [...] on filedocumented in this encounter Care Teams Fractionation Plant Supervisor Relationship Specialty Start Date End Date Jacinto Chaudhary MD [address] [place] [address] [place] [phone] PCP - General 09/22/16 08/02/22 documented as of this encounter
--- OUTSIDE RECORDS SUMMARY | 2024-10-23 18:04 | XMS_ITS | Encounter Summary ---
Author Organization [facility] Address [address] [place] [address] Phone Care Team Providers Care Civil Transportation Engineer Name Role Phone Jacinto Chaudhary MD Primary Care Provider [phone] Encounter Details Date Type Department Care Team (Late st Contact Info) Description 04/13/2016 Documentation [facility] [place] [address] [place] [address] Family Medicine, Physician [address] [place] [address] Social History Tobacco Use Types Packs/Day Years [...] on filedocumented in this encounter Care Teams Civil Transportation Engineer Relationship Specialty Start Date End Date Jacinto Chaudhary MD [address] [place] [address] [place] [phone] PCP - General 09/22/16 08/02/22 documented as of this encounter
--- OUTSIDE RECORDS SUMMARY | 2024-10-23 18:04 | XMS_ITS | Encounter Summary ---
Author Organization [facility] Address [address] [place] [address] Phone Care Team Providers Care Faa Certified Powerplant Mechanic Name Role Phone Jacinto Chaudhary MD Primary Care Provider [phone] Encounter Details Date Type Department Care Team (Late st Contact Info) Description 02/27/2013 Documentation [facility] [place] Family Medicine [address] [place] [address] Family Medicine, Physician [address] [place] [address] Social History Tobacco Use Types Packs/Day Years [...] on filedocumented in this encounter Care Teams Faa Certified Powerplant Mechanic Relationship Specialty Start Date End Date Jacinto Chaudhary MD [address] [place] [address] [place] [phone] PCP - General 09/22/16 08/02/22 documented as of this encounter
--- OUTSIDE RECORDS SUMMARY | 2024-10-23 18:04 | XMS_ITS | Encounter Summary ---
Author Organization [facility] Address [address] [place] [address] Phone Care Team Providers Care Chief Petroleum Engineer Name Role Phone Jacinto Chaudhary MD Primary Care Provider [phone] Encounter Details Date Type Department Care Team (Late st Contact Info) Description 04/04/2013 Documentation [facility] [place] [address] [place] [address] Family Medicine, Physician [address] [place] [address] Social History Tobacco Use Types Packs/Day Years [...] filedocumented in this encounter Care Teams Chief Petroleum Engineer Relationship Specialty Start Date End Date Jacinto Chaudhary MD [address] [place] [address] [place] [phone] PCP - General 09/22/16 08/02/22 documented as of this encounter
--- OUTSIDE RECORDS SUMMARY | 2024-10-23 18:04 | XMS_ITS | Encounter Summary ---
Author Organization [facility] Address [address] [place] [address] Phone Care Team Providers Care Machine Setter Supervisor Name Role Phone Jacinto Chaudhary MD Primary Care Provider Encounter Details Date Type Department Care Team (Late st Contact Info) Description 04/07/2014 Documentation [facility] [place] [address] [place] [address] Family Medicine, Physician [address] [place] [address] Social History Tobacco Use Types Packs/Day Years [...] filedocumented in this encounter Care Teams Machine Setter Supervisor Relationship Specialty Start Date End Date Jacinto Chaudhary MD [address] [place] [address] [place] [id number] PCP - General 09/22/16 08/02/22 documented as of this encounter
--- OUTSIDE RECORDS SUMMARY | 2024-10-23 18:04 | XMS_ITS | Encounter Summary ---
Author Organization [facility] Address [address] [place] [address] Phone Care Team Providers Care Roller Mill Operator Name Role Phone Jacinto Chaudhary MD Primary Care Provider [phone] Encounter Details Date Type Department Care Team (Late st Contact Info) Description 04/07/2014 Documentation [facility] [place] [address] [place] [address] Family Medicine, Physician [address] [place] [address] Social History Tobacco Use Types Packs/Day Years [...] filedocumented in this encounter Care Teams Roller Mill Operator Relationship Specialty Start Date End Date Jacinto Chaudhary MD [address] [place] [address] [place] [phone] PCP - General 09/22/16 08/02/22 documented as of this encounter
--- OUTSIDE RECORDS SUMMARY | 2024-10-23 18:04 | XMS_ITS | Encounter Summary ---
Author Organization [facility] Address [address] [place] [address] Phone Care Team Providers Care School Resource Officer Name Role Phone Jacinto Chaudhary MD Primary Care Provider [phone] Encounter Details Date Type Department Care Team (Late st Contact Info) Description 04/04/2013 Documentation [facility] [place] Family Medicine [address] [place] [address] Family Medicine, Physician [address] [place] [address] Social History Tobacco Use Types Packs/Day Years [...] on filedocumented in this encounter Care Teams School Resource Officer Relationship Specialty Start Date End Date Jacinto Chaudhary MD [address] [place] [address] [place] [id number] PCP - General 09/22/16 08/02/22 documented as of this encounter
--- OUTSIDE RECORDS SUMMARY | 2024-10-23 18:04 | XMS_ITS | Encounter Summary ---
Author Organization [facility] Address [address] [place] [address] Phone Care Team Providers Care Factory Superintendent Name Role Phone Jacinto Chaudhary MD Primary Care Provider Encounter Details Date Type Department Care Team (Late st Contact Info) Description 11/10/2013 Documentation [facility] [place] [address] [place] [address] Family Medicine, Physician [address] [place] [address] Social History Tobacco Use Types Packs/Day Years [...] on filedocumented in this encounter Care Teams Factory Superintendent Relationship Specialty Start Date End Date Jacinto Chaudhary MD [address] [place] [address] [place] [phone] PCP - General 09/22/16 08/02/22 documented as of this encounter
--- OUTSIDE RECORDS SUMMARY | 2024-10-23 18:04 | XMS_ITS | Encounter Summary ---
Author Organization [facility] Address [address] [place] [address] Phone Care Team Providers Care Morale Officer Name Role Phone Jacinto Chaudhary MD Primary Care Provider Encounter Details Date Type Department Care Team (Late st Contact Info) Description 04/09/2015 Documentation [facility] [place] Family Medicine [address] [place] [address] Family Medicine, Physician [address] [place] [address] Social History Tobacco Use Types Packs/Day Years [...] on filedocumented in this encounter Care Teams Morale Officer Relationship Specialty Start Date End Date Jacinto Chaudhary MD [address] [place] [address] [place] [phone] PCP - General 09/22/16 08/02/22 documented as of this encounter
--- OUTSIDE RECORDS SUMMARY | 2024-10-23 18:04 | XMS_ITS | Encounter Summary ---
Author Organization [facility] Address [address] [place] [address] Phone Care Team Providers Care Research & Analytics Manager Name Role Phone Jacinto Chaudhary MD Primary Care Provider [phone] Encounter Details Date Type Department Care Team (Late st Contact Info) Description 04/14/2016 Documentation [facility] [place] [address] [place] [address] Family Medicine, Physician [address] [place] [address] Social History Tobacco Use Types Packs/Day Years [...] on filedocumented in this encounter Care Teams Research & Analytics Manager Relationship Specialty Start Date End Date Jacinto Chaudhary MD [address] [place] [address] [place] [phone] PCP - General 09/22/16 08/02/22 documented as of this encounter
== END 2024-10-23 15:11 | disposition home or self-care (01) ==
LOC: HO.HMCH 14:18
PROVIDERS: PCP Physician Assistant; Visit Provider Physician Assistant
DX: Z00.00 Encounter for general adult medical examination without abnormal findings (principal); J45.30 Mild persistent asthma, uncomplicated; Z68.32 Body mass index [BMI] 32.0-32.9, adult; E66.811 Obesity, class 1; Z23 Encounter for immunization; Z13.1 Encounter for screening for diabetes mellitus

== ENCOUNTER → 2024-10-23 14:17 | Outpatient (BNVA) | payer OTHER, MEDICAID, SELFPAY | PROVIDERS: PCP Physician Assistant; Visit Provider Physician Assistant | DX: Z00.00 Encounter for general adult medical examination without abnormal findings (principal); Z23 Encounter for immunization; J45.30 Mild persistent asthma, uncomplicated; E66.811 Obesity, class 1; Z68.32 Body mass index [BMI] 32.0-32.9, adult; Z13.31 Encounter for screening for depression; Z13.39 Encounter for screening examination for other mental health and behavioral disorders | CPT/HCPCS: 90471; 90715; 96127; 96160 ==

== ENCOUNTER 2024-10-27 09:45 | Outpatient (AMB) | payer OTHER, MEDICAID, SELFPAY ==
--- OUTSIDE RECORDS SUMMARY | 2024-10-27 11:58 | XMS_ITS | Encounter Summary ---
Author Organization [facility] Address [address] [place] [address] Phone Care Team Providers Care Optometric Assistant Name Role Phone Jacinto Chaudhary MD Primary Care Provider [phone] Encounter Details Date Type Department Care Team (Late st Contact Info) Description 04/04/2013 Documentation [facility] [place] [address] [place] [address] Family Medicine, Physician [address] [place] [address] Social History Tobacco Use Types Packs/Day Years [...] on filedocumented in this encounter Care Teams Optometric Assistant Relationship Specialty Start Date End Date Jacinto Chaudhary MD [address] [place] [address] [place] [phone] PCP - General 09/22/16 08/02/22 documented as of this encounter
--- OUTSIDE RECORDS SUMMARY | 2024-10-27 11:58 | XMS_ITS | Encounter Summary ---
Author Organization [facility] Address [address] [place] [address] Phone Care Team Providers Care Loan Approver Name Role Phone Jacinto Chaudhary MD Primary Care Provider [phone] Encounter Details Date Type Department Care Team (Late st Contact Info) Description 02/27/2013 Documentation [facility] [place] [address] [place] [address] Family Medicine, Physician [address] [place] [address] Social History Tobacco Use Types Packs/Day Years [...] on filedocumented in this encounter Care Teams Loan Approver Relationship Specialty Start Date End Date Jacinto Chaudhary MD [address] [place] [address] [place] [phone] PCP - General 09/22/16 08/02/22 documented as of this encounter
--- OUTSIDE RECORDS SUMMARY | 2024-10-27 11:58 | XMS_ITS | Encounter Summary ---
Author Organization [facility] Address [address] [place] [address] Phone Care Team Providers Care Mold Engraver Name Role Phone Jacinto Chaudhary MD Primary Care Provider [phone] Encounter Details Date Type Department Care Team (Late st Contact Info) Description 11/25/2015 Documentation [facility] [place] Family Medicine [address] [place] [address] Family Medicine, Physician [address] [place] [address] Social History Tobacco Use Types Packs/Day Years [...] on filedocumented in this encounter Care Teams Mold Engraver Relationship Specialty Start Date End Date Jacinto Chaudhary MD [address] [place] [address] [place] [phone] PCP - General 09/22/16 08/02/22 documented as of this encounter
--- OUTSIDE RECORDS SUMMARY | 2024-10-27 11:58 | XMS_ITS | Encounter Summary ---
Author Organization [facility] Address [address] [place] [address] Phone Care Team Providers Care Informaticist Name Role Phone Jacinto Chaudhary MD Primary Care Provider [phone] Encounter Details Date Type Department Care Team (Late st Contact Info) Description 04/07/2014 Documentation [facility] [place] Family Medicine [address] [place] [address] Family Medicine, Physician [address] [place] [address] Social History Tobacco Use Types Packs/Day Years [...] on filedocumented in this encounter Care Teams Informaticist Relationship Specialty Start Date End Date Jacinto Chaudhary MD [address] [place] [address] [place] [phone] PCP - General 09/22/16 08/02/22 documented as of this encounter
--- OUTSIDE RECORDS SUMMARY | 2024-10-27 11:58 | XMS_ITS | Encounter Summary ---
Author Organization [facility] Address [address] [place] [address] Phone Care Team Providers Care Technical Programs Manager Name Role Phone Jacinto Chaudhary MD Primary Care Provider [phone] Encounter Details Date Type Department Care Team (Late st Contact Info) Description 10/14/2013 Documentation [facility] [place] [address] [place] [address] Family Medicine, Physician [address] [place] [address] Social History Tobacco Use Types Packs/Day Years [...] on filedocumented in this encounter Care Teams Technical Programs Manager Relationship Specialty Start Date End Date Jacinto Chaudhary MD [address] [place] [address] [place] [phone] PCP - General 09/22/16 08/02/22 documented as of this encounter
--- OUTSIDE RECORDS SUMMARY | 2024-10-27 11:58 | XMS_ITS | Clinical Summary ---
Author Organization [facility] Address [address] [place] [address] Phone Care Team Providers Care Ship Propeller Finisher Name Role Phone Unavailable Primary Care Provider [...]
--- OUTSIDE RECORDS SUMMARY | 2024-10-27 11:58 | XMS_ITS | Encounter Summary ---
Author Organization [facility] Address [address] [place] [address] Phone Care Team Providers Care Venture Capital Analyst Name Role Phone Jacinto Chaudhary MD Primary Care Provider [phone] Encounter Details Date Type Department Care Team (Late st Contact Info) Description 11/10/2013 Documentation [facility] [place] [address] [place] [address] Family Medicine, Physician [address] [place] [address] Social History Tobacco Use Types Packs/Day Years [...] on filedocumented in this encounter Care Teams Venture Capital Analyst Relationship Specialty Start Date End Date Jacinto Chaudhary MD [address] [place] [address] [place] [phone] PCP - General 09/22/16 08/02/22 documented as of this encounter
--- OUTSIDE RECORDS SUMMARY | 2024-10-27 11:58 | XMS_ITS | Encounter Summary ---
Author Organization [facility] Address [address] [place] [address] Phone Care Team Providers Care Electrical Tester Battery Name Role Phone Jacinto Chaudhary MD Primary Care Provider [phone] Encounter Details Date Type Department Care Team (Late st Contact Info) Description 02/16/2011 Documentation [facility] [place] Family Medicine [address] [place] [address] Family Medicine, Physician [address] [place] [address] Social History Tobacco Use Types Packs/Day Years [...] on filedocumented in this encounter Care Teams Electrical Tester Battery Relationship Specialty Start Date End Date Jacinto Chaudhary MD [address] [place] [address] [place] [phone] PCP - General 09/22/16 08/02/22 documented as of this encounter
--- OUTSIDE RECORDS SUMMARY | 2024-10-27 11:58 | XMS_ITS | Encounter Summary ---
Author Organization [facility] Address [address] [place] [address] Phone Care Team Providers Care Wool Buyer Name Role Phone Jacinto Chaudhary MD Primary Care Provider [phone] Encounter Details Date Type Department Care Team (Late st Contact Info) Description 02/16/2011 [place] [facility] [place] [address] [place] [address] Family Medicine, Physician [address] [place] [address] Social History Tobacco Use Types Packs/Day Years [...] on filedocumented in this encounter Care Teams Wool Buyer Relationship Specialty Start Date End Date Jacinto Chaudhary MD [address] [place] [address] [place] [id number] PCP - General 09/22/16 08/02/22 documented as of this encounter
--- OUTSIDE RECORDS SUMMARY | 2024-10-27 11:58 | XMS_ITS | Encounter Summary ---
Author Organization [facility] Address [address] [place] [address] Phone Care Team Providers Care Stage Driver Name Role Phone Jacinto Chaudhary MD Primary Care Provider [phone] Encounter Details Date Type Department Care Team (Late st Contact Info) Description 02/27/2013 Documentation [facility] [place] Family [place] [address] [place] [address] Family Medicine, Physician [address] [place] [address] Social History Tobacco Use Types Packs/Day Years [...] on filedocumented in this encounter Care Teams Stage Driver Relationship Specialty Start Date End Date Jacinto Chaudhary MD [address] [place] [address] [place] [phone] PCP - General 09/22/16 08/02/22 documented as of this encounter
--- OUTSIDE RECORDS SUMMARY | 2024-10-27 11:58 | XMS_ITS | Encounter Summary ---
Author Organization [facility] Address [address] [place] [address] Phone Care Team Providers Care Bench Precision Assembler Name Role Phone Jacinto Chaudhary MD Primary Care Provider [phone] Encounter Details Date Type Department Care Team (Late st Contact Info) Description 09/28/2016 Conversion Encounter [facility] [place] [address] [place] [address] Social History Tobacco Use Types Packs/Day Years [...] on filedocumented in this encounter Care Teams Bench Precision Assembler Relationship Specialty Start Date End Date Jacinto Chaudhary MD [address] [place] [address] PCP - General 09/22/16 08/02/22 documented as of this encounter
--- OUTSIDE RECORDS SUMMARY | 2024-10-27 11:58 | XMS_ITS | Encounter Summary ---
Author Organization [facility] Address [address] [place] [address] Phone Care Team Providers Care Hospice Nurse Name Role Phone Jacinto Chaudhary MD Primary Care Provider [phone] Encounter Details Date Type Department Care Team (Late st Contact Info) Description 11/10/2013 Documentation [facility] [place] Family Medicine [address] [place] [address] Family Medicine, Physician [address] [place] [address] Social History Tobacco Use Types Packs/Day Years [...] on filedocumented in this encounter Care Teams Hospice Nurse Relationship Specialty Start Date End Date Jacinto Chaudhary MD [address] [place] [address] [place] [phone] PCP - General 09/22/16 08/02/22 documented as of this encounter
--- OUTSIDE RECORDS SUMMARY | 2024-10-27 11:58 | XMS_ITS | Encounter Summary ---
Author Organization [facility] Address [address] [place] [address] Phone Care Team Providers Care Trim Installer Name Role Phone Jacinto Chaudhary MD Primary Care Provider [phone] Encounter Details Date Type Department Care Team (Late st Contact Info) Description 03/14/2012 Documentation [facility] [place] Family Medicine [address] [place] [address] Family Medicine, Physician [address] [place] [address] Social History Tobacco Use Types Packs/Day Years [...] on filedocumented in this encounter Care Teams Trim Installer Relationship Specialty Start Date End Date Jacinto Chaudhary MD [address] [place] [address] [place] Null [phone] PCP - General 09/22/16 08/02/22 documented as of this encounter
--- OUTSIDE RECORDS SUMMARY | 2024-10-27 11:58 | XMS_ITS | Encounter Summary ---
Author Organization [facility] Address [address] [place] [address] Phone Care Team Providers Care Wrap Knitting Machine Operator Name Role Phone Jacinto Chaudhary MD Primary Care Provider [phone] Encounter Details Date Type Department Care Team (Late st Contact Info) Description 05/09/2013 Documentation [facility] [place] [address] [place] [address] Family Medicine, Physician [address] [place] [address] Social History Tobacco Use Types Packs/Day Years [...] on filedocumented in this encounter Care Teams Wrap Knitting Machine Operator Relationship Specialty Start Date End Date Jacinto Chaudhary MD [address] [place] [address] [place] [phone] PCP - General 09/22/16 08/02/22 documented as of this encounter
--- OUTSIDE RECORDS SUMMARY | 2024-10-27 11:58 | XMS_ITS | Encounter Summary ---
Author Organization [facility] Address [address] [place] [address] Phone Care Team Providers Care Physician Relations Representative Name Role Phone Jacinto Chaudhary MD Primary Care Provider [phone] Encounter Details Date Type Department Care Team (Late st Contact Info) Description 04/26/2010 Documentation [facility] [place] Family Medicine [address] [place] [address] Family Medicine, Physician [address] [place] [address] Social History Tobacco Use Types Packs/Day Years [...] on filedocumented in this encounter Care Teams Physician Relations Representative Relationship Specialty Start Date End Date Jacinto Chaudhary MD [address] [place] [address] [place] [phone] PCP - General 09/22/16 08/02/22 documented as of this encounter
--- OUTSIDE RECORDS SUMMARY | 2024-10-27 11:58 | XMS_ITS | Encounter Summary ---
Author Organization [facility] Address [address] [place] [address] Phone Care Team Providers Care Cloth Bleaching Range Back Tender Name Role Phone Jacinto Chaudhary MD Primary Care Provider [phone] Encounter Details Date Type Department Care Team (Late st Contact Info) Description 04/07/2014 Documentation [facility] [place] [address] [place] [address] Family Medicine, Physician [address] [place] [address] Social History Tobacco Use Types Packs/Day Years [...] on filedocumented in this encounter Care Teams Cloth Bleaching Range Back Tender Relationship Specialty Start Date End Date Jacinto Chaudhary MD [address] [place] [address] [place] [phone] PCP - General 09/22/16 08/02/22 documented as of this encounter
--- OUTSIDE RECORDS SUMMARY | 2024-10-27 11:58 | XMS_ITS | Encounter Summary ---
Author Organization [facility] Address [address] [place] [address] Phone Care Team Providers Care Company Secretary Name Role Phone Jacinto Chaudhary MD Primary Care Provider [phone] Encounter Details Date Type Department Care Team (Late st Contact Info) Description 03/14/2012 Documentation [facility] [place] [address] [place] [address] Family Medicine, Physician [address] [place] [address] Social History Tobacco Use Types Packs/Day Years [...] on filedocumented in this encounter Care Teams Company Secretary Relationship Specialty Start Date End Date Jacinto Chaudhary MD [address] [place] [address] [place] [phone] PCP - General 09/22/16 08/02/22 documented as of this encounter
--- OUTSIDE RECORDS SUMMARY | 2024-10-27 11:58 | XMS_ITS | Encounter Summary ---
Author Organization [facility] Address [address] [place] [address] Phone Care Team Providers Care Us Marketing Director Name Role Phone Jacinto Chaudhary MD Primary Care Provider [phone] Encounter Details Date Type Department Care Team (Late st Contact Info) Description 04/13/2016 Documentation [facility] [place] [address] [place] [address] Family Medicine, Physician [address] [place] [address] Social History Tobacco Use Types Packs/Day Years [...] on filedocumented in this encounter Care Teams Us Marketing Director Relationship Specialty Start Date End Date Jacinto Chaudhary MD [address] [place] [address] [place] [phone] PCP - General 09/22/16 08/02/22 documented as of this encounter
--- OUTSIDE RECORDS SUMMARY | 2024-10-27 11:58 | XMS_ITS | Encounter Summary ---
Author Organization [facility] Address [address] [place] [address] Phone Care Team Providers Care Press Assistant And Feeder Name Role Phone Jacinto Chaudhary MD Primary Care Provider [phone] Encounter Details Date Type Department Care Team (Late st Contact Info) Description 04/09/2015 Documentation [facility] [place] Family Medicine [address] [place] [address] Family Medicine, Physician [address] [place] [address] Social History Tobacco Use Types Packs/Day Years [...] on filedocumented in this encounter Care Teams Press Assistant And Feeder Relationship Specialty Start Date End Date Jacinto Chaudhary MD [address] [place] [address] [place] [phone] PCP - General 09/22/16 08/02/22 documented as of this encounter
--- OUTSIDE RECORDS SUMMARY | 2024-10-27 11:58 | XMS_ITS | Encounter Summary ---
Author Organization [facility] Address [address] [place] [address] Phone Care Team Providers Care Political Theory Professor Name Role Phone Jacinto Chaudhary MD Primary Care Provider [phone] Encounter Details Date Type Department Care Team (Late st Contact Info) Description 08/19/[address] [facility] [place] [address] [place] [address] Family Medicine, Physician [address] [place] [address] Social History Tobacco Use Types Packs/Day Years [...] on filedocumented in this encounter Care Teams Political Theory Professor Relationship Specialty Start Date End Date Jacinto Chaudhary MD [address] [place] [address] [place] [phone] PCP - General 09/22/16 08/02/22 documented as of this encounter
--- OUTSIDE RECORDS SUMMARY | 2024-10-27 11:58 | XMS_ITS | Encounter Summary ---
Author Organization [facility] Address [address] [place] [address] Phone Care Team Providers Care Washery Boss Name Role Phone Jacinto Chaudhary MD Primary Care Provider [phone] Encounter Details Date Type Department Care Team (Late st Contact Info) Description 04/09/2015 Documentation [facility] [place] Medicine [address] [place] [address] Family Medicine, Physician [address] [place] [address] Social History Tobacco Use Types Packs/Day Years [...] on filedocumented in this encounter Care Teams Washery Boss Relationship Specialty Start Date End Date Jacinto Chaudhary MD [address] [place] [address] [place] [phone] PCP - General 09/22/16 08/02/22 documented as of this encounter
--- OUTSIDE RECORDS SUMMARY | 2024-10-27 11:58 | XMS_ITS | Encounter Summary ---
Author Organization [facility] Address [address] [place] [address] Phone Care Team Providers Care Lunchroom Aide Name Role Phone Jacinto Chaudhary MD Primary Care Provider [phone] Encounter Details Date Type Department Care Team (Late st Contact Info) Description 04/04/2013 Documentation [facility] [place] Family Medicine [address] [place] [address] Family Medicine, Physician [address] [place] [address] Social History Tobacco Use Types Packs/Day Years [...] on filedocumented in this encounter Care Teams Lunchroom Aide Relationship Specialty Start Date End Date Jacinto Chaudhary MD [address] [place] [address] [place] [phone] PCP - General 09/22/16 08/02/22 documented as of this encounter
--- OUTSIDE RECORDS SUMMARY | 2024-10-27 11:58 | XMS_ITS | Encounter Summary ---
Author Organization [facility] Address [address] [place] [address] Phone Care Team Providers Care Pressing Machine Operator Name Role Phone Jacinto Chaudhary MD Primary Care Provider [phone] Encounter Details Date Type Department Care Team (Late st Contact Info) Description 04/09/2015 Documentation [facility] [place] Family Medicine [address] [place] [address] Family Medicine, Physician [address] [place] [address] Social History Tobacco Use Types Packs/Day Years [...] on filedocumented in this encounter Care Teams Pressing Machine Operator Relationship Specialty Start Date End Date Jacinto Chaudhary MD [address] [place] [address] [place] [phone] PCP - General 09/22/16 08/02/22 documented as of this encounter
--- OUTSIDE RECORDS SUMMARY | 2024-10-27 11:58 | XMS_ITS | Encounter Summary ---
Author Organization [facility] Address [address] [place] [address] Phone Care Team Providers Care Convertible Sofa Bedspring Tester Name Role Phone Jacinto Chaudhary MD Primary Care Provider [phone] Encounter Details Date Type Department Care Team (Late st Contact Info) Description 04/14/2016 Documentation [facility] [place] Family Medicine [address] [place] [address] Family Medicine, Physician [address] [place] [address] Social History Tobacco Use Types Packs/Day Years [...] on filedocumented in this encounter Care Teams Convertible Sofa Bedspring Tester Relationship Specialty Start Date End Date Jacinto Chaudhary MD [address] [place] [address] [place] [phone] PCP - General 09/22/16 08/02/22 documented as of this encounter
--- OUTSIDE RECORDS SUMMARY | 2024-10-27 11:58 | XMS_ITS | Encounter Summary ---
Author Organization [facility] Address [address] [place] [address] Phone Care Team Providers Care Hand Assembler Name Role Phone Jacinto Chaudhary MD Primary Care Provider [phone] Encounter Details Date Type Department Care Team (Late st Contact Info) Description 04/14/2016 Documentation [facility] [place] [address] [place] [address] Family Medicine, Physician [address] [place] [address] Social History Tobacco Use Types Packs/Day Years [...] on filedocumented in this encounter Care Teams Hand Assembler Relationship Specialty Start Date End Date Jacinto Chaudhary MD [address] [place] [address] [place] [phone] PCP - General 09/22/16 08/02/22 documented as of this encounter
== END 2024-10-27 09:56 | disposition home or self-care (01) ==
LOC: HO.HMGAL 09:45
PROVIDERS: PCP Physician Assistant; Visit Provider Registered Nurse Emergency
DX: J30.89 Other allergic rhinitis (principal)
CPT/HCPCS: 95117; 95165

== ENCOUNTER 2024-11-03 09:47 | Outpatient (AMB) | payer OTHER, MEDICAID, SELFPAY ==
--- OUTSIDE RECORDS SUMMARY | 2024-11-03 11:55 | XMS_ITS | Encounter Summary ---
Author Organization [facility] Address [address] [place] [address] Phone Care Team Providers Care Hard Rock Drill Operator Name Role Phone Jacinto Chaudhary MD Primary Care Provider [phone] Encounter Details Date Type Department Care Team (Late st Contact Info) Description 08/19/2010 Documentation [facility] [place] Family Medicine [address] [place] [address] Family Medicine, Physician [address] [place] [address] Social History Tobacco Use Types Packs/Day Years [...] on filedocumented in this encounter Care Teams Hard Rock Drill Operator Relationship Specialty Start Date End Date Jacinto Chaudhary MD [address] [place] [address] [place] [phone] PCP - General 09/22/16 08/02/22 documented as of this encounter
--- OUTSIDE RECORDS SUMMARY | 2024-11-03 11:55 | XMS_ITS | Encounter Summary ---
Author Organization [facility] Address [address] [place] [address] Phone Care Team Providers Care Executive Vice President And Chief Operating Officer Name Role Phone Jacinto Chaudhary MD Primary Care Provider [phone] Encounter Details Date Type Department Care Team (Late st Contact Info) Description 02/16/2011 Documentation [facility] [place] [address] [place] [address] Family Medicine, Physician [address] [place] [address] Social History Tobacco Use Types Packs/Day Years [...] on filedocumented in this encounter Care Teams Executive Vice President And Chief Operating Officer Relationship Specialty Start Date End Date Jacinto Chaudhary MD [address] [place] [address] [place] [phone] PCP - General 09/22/16 08/02/22 documented as of this encounter
--- OUTSIDE RECORDS SUMMARY | 2024-11-03 11:55 | XMS_ITS | Encounter Summary ---
Author Organization [facility] Address [address] [place] [address] Phone Care Team Providers Care Dog Warden Name Role Phone Jacinto Chaudhary MD Primary Care Provider [phone] Encounter Details Date Type Department Care Team (Late st Contact Info) Description 11/25/2015 Documentation [facility] [place] Medicine [address] [place] [address] Family Medicine, Physician [address] [place] [address] Social History Tobacco Use Types Packs/Day Years [...] on filedocumented in this encounter Care Teams Dog Warden Relationship Specialty Start Date End Date Jacinto Chaudhary MD [address] [place] [address] [place] [phone] PCP - General 09/22/16 08/02/22 documented as of this encounter
--- OUTSIDE RECORDS SUMMARY | 2024-11-03 11:55 | XMS_ITS | Encounter Summary ---
Author Organization [facility] Address [address] [place] [address] Phone Care Team Providers Care Truck Railroad And Bus Motor Mechanic Name Role Phone Jacinto Chaudhary MD Primary Care Provider [phone] Encounter Details Date Type Department Care Team (Late st Contact Info) Description 02/27/2013 Documentation [facility] [place] Family Medicine [address] [place] [address] Family Medicine, Physician [address] [place] [address] Social History Tobacco Use Types Packs/Day Years [...] on filedocumented in this encounter Care Teams Truck Railroad And Bus Motor Mechanic Relationship Specialty Start Date End Date Jacinto Chaudhary MD [address] [place] [address] [place] [phone] PCP - General 09/22/16 08/02/22 documented as of this encounter
--- OUTSIDE RECORDS SUMMARY | 2024-11-03 11:55 | XMS_ITS | Encounter Summary ---
Author Organization [facility] Address [address] [place] [address] Phone Care Team Providers Care Dry Color Tester Name Role Phone Jacinto Chaudhary MD Primary Care Provider [phone] Encounter Details Date Type Department Care Team (Late st Contact Info) Description 04/26/2010 [place] [facility] [facility] [place] [address] [place] [address] Family Medicine, Physician [address] [place] [address] Social History Tobacco Use Types Packs/Day Years [...] on filedocumented in this encounter Care Teams Dry Color Tester Relationship Specialty Start Date End Date Jacinto Chaudhary MD [address] [place] [address] [place] [phone] PCP - General 09/22/16 08/02/22 documented as of this encounter
--- OUTSIDE RECORDS SUMMARY | 2024-11-03 11:55 | XMS_ITS | Encounter Summary ---
Author Organization [facility] Address [address] [place] [address] Phone Care Team Providers Care Career Development Counselor Name Role Phone Jacinto Chaudhary MD Primary Care Provider [phone] Encounter Details Date Type Department Care Team (Late st Contact Info) Description 04/14/2016 Documentation [facility] [place] [address] [place] [address] Family Medicine, Physician [address] [place] [address] Social History Tobacco Use Types Packs/Day Years [...] on filedocumented in this encounter Care Teams Career Development Counselor Relationship Specialty Start Date End Date Jacinto Chaudhary MD [address] [place] [address] [place] [phone] PCP - General 09/22/16 08/02/22 documented as of this encounter
--- OUTSIDE RECORDS SUMMARY | 2024-11-03 11:55 | XMS_ITS | Encounter Summary ---
Author Organization [facility] Address [address] [place] [address] Phone Care Team Providers Care Establishment Guide Name Role Phone Jacinto Chaudhary MD Primary Care Provider [phone] Encounter Details Date Type Department Care Team (Late st Contact Info) Description 04/14/[address] [facility] [place] Family Medicine [address] [place] [address] Family Medicine, Physician [address] [place] [address] Social History Tobacco Use Types Packs/Day Years [...] on filedocumented in this encounter Care Teams Establishment Guide Relationship Specialty Start Date End Date Jacinto Chaudhary MD [address] [place] [address] [place] [phone] PCP - General 09/22/16 08/02/22 documented as of this encounter
--- OUTSIDE RECORDS SUMMARY | 2024-11-03 11:55 | XMS_ITS | Encounter Summary ---
Author Organization [facility] Address [address] [place] [address] Phone Care Team Providers Care Supervisor Shipping Name Role Phone Jacinto Chaudhary MD Primary Care Provider [phone] Encounter Details Date Type Department Care Team (Late st Contact Info) Description 10/14/2013 Documentation [facility] [place] [address] [place] [address] Family Medicine, Physician [address] [place] [address] Social History Tobacco Use Types Packs/Day Years [...] on filedocumented in this encounter Care Teams Supervisor Shipping Relationship Specialty Start Date End Date Jacinto Chaudhary MD [address] [place] [address] [place] [phone] PCP - General 09/22/16 08/02/22 documented as of this encounter
--- OUTSIDE RECORDS SUMMARY | 2024-11-03 11:55 | XMS_ITS | Encounter Summary ---
Author Organization [facility] Address [address] [place] [address] Phone Care Team Providers Care Maintenance Technician Name Role Phone Jacinto Chaudhary MD Primary Care Provider [phone] Encounter Details Date Type Department Care Team (Late st Contact Info) Description 04/04/2013 [place] [facility] [place] [address] [place] [address] Family Medicine, Physician [address] [place] [address] Social History Tobacco Use Types Packs/Day Years [...] on filedocumented in this encounter Care Teams Maintenance Technician Relationship Specialty Start Date End Date Jacinto Chaudhary MD [address] [place] [address] [place] [phone] PCP - General 09/22/16 08/02/22 documented as of this encounter
--- OUTSIDE RECORDS SUMMARY | 2024-11-03 11:55 | XMS_ITS | Encounter Summary ---
Author Organization [facility] Address [address] [place] [address] Phone Care Team Providers Care Experimental Mechanic [employer]board Motors Name Role Phone Jacinto Chaudhary MD Primary Care Provider [phone] Encounter Details Date Type Department Care Team (Late st Contact Info) Description 04/07/2014 Documentation [facility] [place] Family Medicine [address] [place] [address] Family Medicine, Physician [address] [place] [address] Social History Tobacco Use Types Packs/Day Years [...] on filedocumented in this encounter Care Teams Experimental Mechanic Out[employer] Motors Relationship Specialty Start Date End Date Jacinto Chaudhary MD [address] [place] [address] [place] [phone] PCP - General 09/22/16 08/02/22 documented as of this encounter
--- OUTSIDE RECORDS SUMMARY | 2024-11-03 11:55 | XMS_ITS | Encounter Summary ---
Author Organization [facility] Address [address] [place] [address] Phone Care Team Providers Care Baby Doctor Name Role Phone Jacinto Chaudhary MD Primary Care Provider [phone] Encounter Details Date Type Department Care Team (Late st Contact Info) Description 11/10/2013 Documentation [facility] [place] Family Medicine [address] [place] [address] Family Medicine, Physician [address] [place] [address] Social History Tobacco Use Types Packs/Day Years [...] on filedocumented in this encounter Care Teams Baby Doctor Relationship Specialty Start Date End Date Jacinto Chaudhary MD [address] [place] [address] [place] Null [phone] PCP - General 09/22/16 08/02/22 documented as of this encounter
--- OUTSIDE RECORDS SUMMARY | 2024-11-03 11:55 | XMS_ITS | Encounter Summary ---
Author Organization [facility] Address [address] [place] [address] Phone Care Team Providers Care Animal Ecologist Name Role Phone Jacinto Chaudhary MD Primary Care Provider [phone] Encounter Details Date Type Department Care Team (Late st Contact Info) Description 04/07/2014 Documentation [facility] [place] Family Medicine [address] [place] [address] Family Medicine, Physician [address] [place] [address] Social History Tobacco Use Types Packs/Day Years [...] on filedocumented in this encounter Care Teams Animal Ecologist Relationship Specialty Start Date End Date Jacinto Chaudhary MD [address] [place] [address] [place] [phone] PCP - General 09/22/16 08/02/22 documented as of this encounter
--- OUTSIDE RECORDS SUMMARY | 2024-11-03 11:55 | XMS_ITS | Encounter Summary ---
Author Organization [facility] Address [address] [place] [address] Phone Care Team Providers Care Test Equipment Mechanic Name Role Phone Jacinto Chaudhary MD Primary Care Provider [phone] Encounter Details Date Type Department Care Team (Late st Contact Info) Description 04/09/2015 Documentation [facility] [place] [address] [place] [address] Family Medicine, Physician [address] [place] [address] Social History Tobacco Use Types Packs/Day Years [...] on filedocumented in this encounter Care Teams Test Equipment Mechanic Relationship Specialty Start Date End Date Jacinto Chaudhary MD [address] [place] [address] [place] [phone] PCP - General 09/22/16 08/02/22 documented as of this encounter
--- OUTSIDE RECORDS SUMMARY | 2024-11-03 11:55 | XMS_ITS | Encounter Summary ---
Author Organization [facility] Address [address] [place] [address] Phone Care Team Providers Care Card Tender Name Role Phone Jacinto Chaudhary MD Primary Care Provider [phone] Encounter Details Date Type Department Care Team (Late st Contact Info) Description 02/27/2013 Documentation [facility] [place] [address] [place] [address] Family Medicine, Physician [address] [place] [address] Social History Tobacco Use Types Packs/Day Years [...] on filedocumented in this encounter Care Teams Card Tender Relationship Specialty Start Date End Date Jacinto Chaudhary MD [address] [place] [address] [place] [id number] PCP - General 09/22/16 08/02/22 documented as of this encounter
--- OUTSIDE RECORDS SUMMARY | 2024-11-03 11:55 | XMS_ITS | Encounter Summary ---
Author Organization [facility] Address [address] [place] [address] Phone Care Team Providers Care Top Coater Name Role Phone Jacinto Chaudhary MD Primary Care Provider [phone] Encounter Details Date Type Department Care Team (Late st Contact Info) Description 04/09/2015 Documentation [facility] Family Medicine [address] [place] [address] Family Medicine, Physician [address] [place] [address] Social History Tobacco Use Types Packs/Day Years [...] on filedocumented in this encounter Care Teams Top Coater Relationship Specialty Start Date End Date Jacinto Chaudhary MD [address] [place] [address] [place] [phone] PCP - General 09/22/16 08/02/22 documented as of this encounter
--- OUTSIDE RECORDS SUMMARY | 2024-11-03 11:55 | XMS_ITS | Encounter Summary ---
Author Organization [facility] Address [address] [place] [address] Phone Care Team Providers Care Scrub Wheel Operator Name Role Phone Jacinto Chaudhary MD Primary Care Provider [phone] Encounter Details Date Type Department Care Team (Late st Contact Info) Description 09/28/2016 Conversion Encounter [facility] [place] [address] [place] [address] Social History Tobacco Use Types Packs/Day Years [...] on filedocumented in this encounter Care Teams Scrub Wheel Operator Relationship Specialty Start Date End Date Jacinto Chaudhary MD [address] [place] [address] PCP - General 09/22/16 08/02/22 documented as of this encounter
--- OUTSIDE RECORDS SUMMARY | 2024-11-03 11:55 | XMS_ITS | Encounter Summary ---
Author Organization [facility] Address [address] [place] [address] Phone Care Team Providers Care Erisa Attorney Name Role Phone Jacinto Chaudhary MD Primary Care Provider [phone] Encounter Details Date Type Department Care Team (Late st Contact Info) Description 03/14/2012 Documentation [facility] [place] Family Medicine [address] [place] [address] Family Medicine, Physician [address] [place] [address] Social History Tobacco Use Types Packs/Day Years [...] on filedocumented in this encounter Care Teams Erisa Attorney Relationship Specialty Start Date End Date Jacinto Chaudhary MD [address] [place] [address] [place] [phone] PCP - General 09/22/16 08/02/22 documented as of this encounter
--- OUTSIDE RECORDS SUMMARY | 2024-11-03 11:55 | XMS_ITS | Encounter Summary ---
Author Organization [facility] Address [address] [place] [address] Phone Care Team Providers Care Outside Residential Sales Professional Name Role Phone Jacinto Chaudhary MD Primary Care Provider [phone] Encounter Details Date Type Department Care Team (Late st Contact Info) Description 04/13/2016 Documentation [facility] [place] [facility] [address] [place] [address] Family Medicine, Physician [address] [place] [address] Social History Tobacco Use Types Packs/Day Years [...] on filedocumented in this encounter Care Teams Outside Residential Sales Professional Relationship Specialty Start Date End Date Jacinto Chaudhary MD [address] [place] [address] [place] [phone] PCP - General 09/22/16 08/02/22 documented as of this encounter
--- OUTSIDE RECORDS SUMMARY | 2024-11-03 11:55 | XMS_ITS | Encounter Summary ---
Author Organization [facility] Address [address] [place] [address] Phone Care Team Providers Care Rum Processing Operator Name Role Phone Jacinto Chaudhary MD Primary Care Provider [phone] Encounter Details Date Type Department Care Team (Late st Contact Info) Description 04/09/2015 Documentation [facility] [place] [address] [place] [address] Family Medicine, Physician [address] [place] [address] Social History Tobacco Use Types Packs/Day Years [...] on filedocumented in this encounter Care Teams Rum Processing Operator Relationship Specialty Start Date End Date Jacinto Chaudhary MD [address] [place] [address] [place] [phone] PCP - General 09/22/16 08/02/22 documented as of this encounter
--- OUTSIDE RECORDS SUMMARY | 2024-11-03 11:55 | XMS_ITS | Encounter Summary ---
Author Organization [facility] Address [address] [place] [address] Phone Care Team Providers Care Ip Attorney Name Role Phone Jacinto Chaudhary MD Primary Care Provider [phone] Encounter Details Date Type Department Care Team (Late st Contact Info) Description 04/04/2013 Documentation [facility] [place] [address] [place] [address] Family Medicine, Physician [address] [place] [address] Social History Tobacco Use Types Packs/Day Years [...] on filedocumented in this encounter Care Teams Ip Attorney Relationship Specialty Start Date End Date Jacinto Chaudhary MD [address] [place] [address] [place] [phone] PCP - General 09/22/16 08/02/22 documented as of this encounter
--- OUTSIDE RECORDS SUMMARY | 2024-11-03 11:55 | XMS_ITS | Clinical Summary ---
Author Organization [facility] Address [address] [place] [address] Phone Care Team Providers Care Gaming Director Name Role Phone Unavailable Primary Care Provider [...]
--- OUTSIDE RECORDS SUMMARY | 2024-11-03 11:55 | XMS_ITS | Encounter Summary ---
Author Organization [facility] Address [address] [place] [address] Phone Care Team Providers Care Cold Strip Feeder Name Role Phone Jacinto Chaudhary MD Primary Care Provider [phone] Encounter Details Date Type Department Care Team (Late st Contact Info) Description 03/14/2012 Documentation [facility] [place] [address] [place] [address] Family Medicine, Physician [address] [place] [address] Social History Tobacco Use Types Packs/Day Years [...] on filedocumented in this encounter Care Teams Cold Strip Feeder Relationship Specialty Start Date End Date Jacinto Chaudhary MD [address] [place] [address] [place] [phone] PCP - General 09/22/16 08/02/22 documented as of this encounter
--- OUTSIDE RECORDS SUMMARY | 2024-11-03 11:55 | XMS_ITS | Encounter Summary ---
Author Organization [facility] Address [address] [place] [address] Phone Care Team Providers Care Sizing Sponger Name Role Phone Jacinto Chaudhary MD Primary Care Provider [phone] Encounter Details Date Type Department Care Team (Late st Contact Info) Description 11/10/2013 Documentation [facility] [place] [address] [place] [address] Family Medicine, Physician [address] [place] [address] Social History Tobacco Use Types Packs/Day Years [...] on filedocumented in this encounter Care Teams Sizing Sponger Relationship Specialty Start Date End Date Jacinto Chaudhary MD [address] [place] [address] [place] [phone] PCP - General 09/22/16 08/02/22 documented as of this encounter
--- OUTSIDE RECORDS SUMMARY | 2024-11-03 11:55 | XMS_ITS | Encounter Summary ---
Author Organization [facility] Address [address] [place] [address] Phone Care Team Providers Care Mat Tester Name Role Phone Jacinto Chaudhary MD Primary Care Provider [phone] Encounter Details Date Type Department Care Team (Late st Contact Info) Description 05/09/2013 Documentation [facility] [place] [address] [place] [address] Family Medicine, Physician [address] [place] [address] Social History Tobacco Use Types Packs/Day Years [...] on filedocumented in this encounter Care Teams Mat Tester Relationship Specialty Start Date End Date Jacinto Chaudhary MD [address] [place] [address] [place] [phone] PCP - General 09/22/16 08/02/22 documented as of this encounter
--- OUTSIDE RECORDS SUMMARY | 2024-11-03 11:55 | XMS_ITS | Encounter Summary ---
Author Organization [facility] Address [address] [place] [address] Phone Care Team Providers Care Case Picker Name Role Phone Jacinto Chaudhary MD Primary Care Provider [phone] Encounter Details Date Type Department Care Team (Late st Contact Info) Description 02/16/2011 Documentation [facility] [place] [address] [place] [address] Family Medicine, Physician [address] [place] [address] Social History Tobacco Use Types Packs/Day Years [...] on filedocumented in this encounter Care Teams Case Picker Relationship Specialty Start Date End Date Jacinto Chaudhary MD [address] [place] [address] [place] [phone] PCP - General 09/22/16 08/02/22 documented as of this encounter
== END 2024-11-03 09:48 | disposition home or self-care (01) ==
LOC: HO.HMGAL 09:47
PROVIDERS: PCP Physician Assistant; Visit Provider Registered Nurse Emergency
DX: J30.89 Other allergic rhinitis (principal)
CPT/HCPCS: 95117; 95165

== ENCOUNTER 2024-11-19 10:00 | Outpatient (AMB) | payer MEDICAID, SELFPAY | END 2024-11-19 10:24 | disposition home or self-care (01) | LOC: HO.HMGAL 10:00 | PROVIDERS: PCP Physician Assistant; Visit Provider Registered Nurse Emergency | DX: J30.89 Other allergic rhinitis (principal) | CPT/HCPCS: 95117; 95165 ==

== ENCOUNTER 2024-12-03 09:32 | Outpatient (AMB) | payer MEDICAID, SELFPAY ==
--- OUTSIDE RECORDS SUMMARY | 2024-12-03 10:55 | XMS_ITS | Clinical Summary ---
Author Organization [facility] Address [address] [place] [address] Phone Care Team Providers Care Hem Inspector Name Role Phone Unavailable Primary Care Provider [...]
--- OUTSIDE RECORDS SUMMARY | 2024-12-03 10:55 | XMS_ITS | Encounter Summary ---
Author Organization [facility] Address [address] [place] [address] Phone Care Team Providers Care Termite Inspector Name Role Phone Jacinto Chaudhary MD Primary Care Provider [phone] Encounter Details Date Type Department Care Team (Late st Contact Info) Description 11/10/2013 Documentation [facility] [place] [address] [place] [address] Family Medicine, Physician [address] [place] [address] Social History Tobacco Use Types Packs/Day Years [...] on filedocumented in this encounter Care Teams Termite Inspector Relationship Specialty Start Date End Date Jacinto Chaudhary MD [address] [place] [address] [place] [phone] PCP - General 09/22/16 08/02/22 documented as of this encounter
--- OUTSIDE RECORDS SUMMARY | 2024-12-03 10:55 | XMS_ITS | Encounter Summary ---
Author Organization [facility] Address [address] [place] [address] Phone Care Team Providers Care Fermentation Scientist Name Role Phone Jacinto Chaudhary MD Primary Care Provider [phone] Encounter Details Date Type Department Care Team (Late st Contact Info) Description 05/09/2013 Documentation [facility] [place] [address] [place] [address] Family Medicine, Physician [address] [place] [address] Social History Tobacco Use Types Packs/Day Years [...] on filedocumented in this encounter Care Teams Fermentation Scientist Relationship Specialty Start Date End Date Jacinto Chaudhary MD [address] [place] [address] [place] [phone] PCP - General 09/22/16 08/02/22 documented as of this encounter
--- OUTSIDE RECORDS SUMMARY | 2024-12-03 10:55 | XMS_ITS | Encounter Summary ---
Author Organization [facility] Address [address] [place] [address] Phone Care Team Providers Care Emergency Department Rn Name Role Phone Jacinto Chaudhary MD Primary Care Provider [phone] Encounter Details Date Type Department Care Team (Late st Contact Info) Description 02/16/2011 Documentation [facility] [place] [address] [place] [address] Family Medicine, Physician [address] [place] [address] Social History Tobacco Use Types Packs/Day Years [...] on filedocumented in this encounter Care Teams Emergency Department Rn Relationship Specialty Start Date End Date Jacinto Chaudhary MD [address] [place] [address] [place] [phone] PCP - General 09/22/16 08/02/22 documented as of this encounter
--- OUTSIDE RECORDS SUMMARY | 2024-12-03 10:55 | XMS_ITS | Encounter Summary ---
Author Organization [facility] Address [address] [place] [address] Phone Care Team Providers Care License Clerk Name Role Phone Jacinto Chaudhary MD Primary Care Provider [phone] Encounter Details Date Type Department Care Team (Late st Contact Info) Description 02/16/2011 Documentation [facility] [place] [address] [place] [address] Family Medicine, Physician [address] [place] [address] Social History Tobacco Use Types Packs/Day Years [...] on filedocumented in this encounter Care Teams License Clerk Relationship Specialty Start Date End Date Jacinto Chaudhary MD [address] [place] [address] [place] [phone] PCP - General 09/22/16 08/02/22 documented as of this encounter
--- OUTSIDE RECORDS SUMMARY | 2024-12-03 10:55 | XMS_ITS | Encounter Summary ---
Author Organization [facility] Address [address] [place] [address] Phone Care Team Providers Care Real Estate Listing Consultant Name Role Phone Jacinto Chaudhary MD Primary Care Provider [phone] Encounter Details Date Type Department Care Team (Late st Contact Info) Description 10/14/2013 Documentation [facility] [place] [address] [place] [address] Family Medicine, Physician [address] [place] [address] Social History Tobacco Use Types Packs/Day Years [...] on filedocumented in this encounter Care Teams Real Estate Listing Consultant Relationship Specialty Start Date End Date Jacinto Chaudhary MD [address] [place] [address] [place] [phone] PCP - General 09/22/16 08/02/22 documented as of this encounter
--- OUTSIDE RECORDS SUMMARY | 2024-12-03 10:55 | XMS_ITS | Encounter Summary ---
Author Organization [facility] Address [address] [place] [address] Phone Care Team Providers Care Burlap Bag Sewer Name Role Phone Jacinto Chaudhary MD Primary Care Provider [phone] Encounter Details Date Type Department Care Team (Late st Contact Info) Description 08/19/2010 Documentation [facility] [place] [address] [place] [address] Family Medicine, Physician [address] [place] [address] Social History Tobacco Use Types Packs/Day Years [...] on filedocumented in this encounter Care Teams Burlap Bag Sewer Relationship Specialty Start Date End Date Jacinto Chaudhary MD [address] [place] [address] [place] [phone] PCP - General 09/22/16 08/02/22 documented as of this encounter
--- OUTSIDE RECORDS SUMMARY | 2024-12-03 10:55 | XMS_ITS | Encounter Summary ---
Author Organization [facility] Address [address] [place] [address] Phone Care Team Providers Care Scroll Machine Operator Name Role Phone Jacinto Chaudhary MD Primary Care Provider [phone] Encounter Details Date Type Department Care Team (Late st Contact Info) Description 11/10/2013 Documentation [facility] [place] [address] [place] [address] Family Medicine, Physician [address] [place] [address] Social History Tobacco Use Types Packs/Day Years [...] on filedocumented in this encounter Care Teams Scroll Machine Operator Relationship Specialty Start Date End Date Jacinto Chaudhary MD [address] [place] [address] [place] [phone] PCP - General 09/22/16 08/02/22 documented as of this encounter
--- OUTSIDE RECORDS SUMMARY | 2024-12-03 10:55 | XMS_ITS | Encounter Summary ---
Author Organization [facility] Address [address] [place] [address] Phone Care Team Providers Care Service Planner Name Role Phone Jacinto Chaudhary MD Primary Care Provider [phone] Encounter Details Date Type Department Care Team (Late st Contact Info) Description 03/14/2012 Documentation [facility] [place] [address] [place] [address] Family Medicine, Physician [address] [place] [address] Social History Tobacco Use Types Packs/Day Years [...] on filedocumented in this encounter Care Teams Service Planner Relationship Specialty Start Date End Date Jacinto Chaudhary MD [address] [place] [address] [place] [phone] PCP - General 09/22/16 08/02/22 documented as of this encounter
--- OUTSIDE RECORDS SUMMARY | 2024-12-03 10:55 | XMS_ITS | Encounter Summary ---
Author Organization [facility] Address [address] [place] [address] Phone Care Team Providers Care Fruit And Vegetable Parer Name Role Phone Jacinto Chaudhary MD Primary Care Provider [phone] Encounter Details Date Type Department Care Team (Late st Contact Info) Description 04/14/2016 Documentation [facility] [place] [address] [place] [address] Family Medicine, Physician [address] [place] [address] Social History Tobacco Use Types Packs/Day Years [...] on filedocumented in this encounter Care Teams Fruit And Vegetable Parer Relationship Specialty Start Date End Date Jacinto Chaudhary MD [address] [place] [address] [place] [phone] PCP - General 09/22/16 08/02/22 documented as of this encounter
--- OUTSIDE RECORDS SUMMARY | 2024-12-03 10:55 | XMS_ITS | Encounter Summary ---
Author Organization [facility] Address [address] [place] [address] Phone Care Team Providers Care City Collector Name Role Phone Jacinto Chaudhary MD Primary Care Provider [phone] Encounter Details Date Type Department Care Team (Late st Contact Info) Description 03/14/2012 Documentation [facility] [place] [address] [place] [address] Family Medicine, Physician [address] [place] [address] Social History Tobacco Use Types Packs/Day Years [...] on filedocumented in this encounter Care Teams City Collector Relationship Specialty Start Date End Date Jacinto Chaudhary MD [address] [place] [address] [place] [phone] PCP - General 09/22/16 08/02/22 documented as of this encounter
--- OUTSIDE RECORDS SUMMARY | 2024-12-03 10:55 | XMS_ITS | Encounter Summary ---
Author Organization [facility] Address [address] [place] [address] Phone Care Team Providers Care Software Engineer Advisor Name Role Phone Jacinto Chaudhary MD Primary Care Provider [phone] Encounter Details Date Type Department Care Team (Late st Contact Info) Description 09/28/2016 Conversion Encounter [facility] [place] [address] [place] [address] Social History Tobacco Use Types Packs/Day Years [...] on filedocumented in this encounter Care Teams Software Engineer Advisor Relationship Specialty Start Date End Date Jacinto Chaudhary MD [address] [facility] [place] [id number] PCP - General 09/22/16 08/02/22 documented as of this encounter
--- OUTSIDE RECORDS SUMMARY | 2024-12-03 10:55 | XMS_ITS | Encounter Summary ---
Author Organization [facility] Address [address] [place] [address] Phone Care Team Providers Care Electroslag Welding Machine Operator Name Role Phone Jacinto Chaudhary MD Primary Care Provider [phone] Encounter Details Date Type Department Care Team (Late st Contact Info) Description 04/13/2016 Documentation [facility] [place] [address] [place] [address] Family Medicine, Physician [address] [place] [address] Social History Tobacco Use Types Packs/Day Years [...] on filedocumented in this encounter Care Teams Electroslag Welding Machine Operator Relationship Specialty Start Date End Date Jacinto Chaudhary MD [address] [place] [address] [place] [phone] PCP - General 09/22/16 08/02/22 documented as of this encounter
--- OUTSIDE RECORDS SUMMARY | 2024-12-03 10:55 | XMS_ITS | Encounter Summary ---
Author Organization [facility] Address [address] [place] [address] Phone Care Team Providers Care Cyberathlete Name Role Phone Jacinto Chaudhary MD Primary Care Provider Encounter Details Date Type Department Care Team (Late st Contact Info) Description 11/25/2015 Documentation [facility] [place] [address] [place] [address] Family Medicine, Physician [address] [place] [address] Social History Tobacco Use Types Packs/Day Years [...] on filedocumented in this encounter Care Teams Cyberathlete Relationship Specialty Start Date End Date Jacinto Chaudhary MD [address] [place] [address] [place] [phone] PCP - General 09/22/16 08/02/22 documented as of this encounter
--- OUTSIDE RECORDS SUMMARY | 2024-12-03 10:55 | XMS_ITS | Encounter Summary ---
Author Organization [facility] Address [address] [place] [address] Phone Care Team Providers Care Grain Origination Specialist Name Role Phone Jacinto Chaudhary MD Primary Care Provider [phone] Encounter Details Date Type Department Care Team (Late st Contact Info) Description 04/14/2016 Documentation [facility] [place] [address] [place] [address] Family Medicine, Physician [address] [place] [address] Social History Tobacco Use Types Packs/Day Years [...] on filedocumented in this encounter Care Teams Grain Origination Specialist Relationship Specialty Start Date End Date Jacinto Chaudhary MD [address] [place] [address] [place] [phone] PCP - General 09/22/16 08/02/22 documented as of this encounter
--- OUTSIDE RECORDS SUMMARY | 2024-12-03 10:56 | XMS_ITS | Encounter Summary ---
Author Organization [facility] Address [address] [place] [address] Phone Care Team Providers Care Clinical Data Research Name Role Phone Jacinto Chaudhary MD Primary Care Provider [phone] Encounter Details Date Type Department Care Team (Late st Contact Info) Description 04/07/2014 Documentation [facility] [place] [address] [place] [address] Family Medicine, Physician [address] [place] [address] Social History Tobacco Use Types Packs/Day Years [...] on filedocumented in this encounter Care Teams Clinical Data Research Relationship Specialty Start Date End Date Jacinto Chaudhary MD [address] [place] [address] [place] [phone] PCP - General 09/22/16 08/02/22 documented as of this encounter
--- OUTSIDE RECORDS SUMMARY | 2024-12-03 10:56 | XMS_ITS | Encounter Summary ---
Author Organization [facility] Address [address] [place] [address] Phone Care Team Providers Care General Farmer Name Role Phone Jacinto Chaudhary MD Primary Care Provider [phone] Encounter Details Date Type Department Care Team (Late st Contact Info) Description 02/27/2013 Documentation [facility] [place] [address] [place] [address] Family Medicine, Physician [address] [place] [address] Social History Tobacco Use Types Packs/Day Years [...] on filedocumented in this encounter Care Teams General Farmer Relationship Specialty Start Date End Date Jacinto Chaudhary MD [address] [place] [address] [place] [phone] PCP - General 09/22/16 08/02/22 documented as of this encounter
--- OUTSIDE RECORDS SUMMARY | 2024-12-03 10:56 | XMS_ITS | Encounter Summary ---
Author Organization [facility] Address [address] [place] [address] Phone Care Team Providers Care Tobacco Conditioner Name Role Phone Jacinto Chaudhary MD Primary Care Provider [phone] Encounter Details Date Type Department Care Team (Late st Contact Info) Description 04/04/2013 Documentation [facility] [place] Family Medicine [address] [place] [address] Family Medicine, Physician [address] [place] [address] Social History Tobacco Use Types Packs/Day Years [...] on filedocumented in this encounter Care Teams Tobacco Conditioner Relationship Specialty Start Date End Date Jacinto Chaudhary MD [address] [place] [address] [place] [phone] PCP - General 09/22/16 08/02/22 documented as of this encounter
--- OUTSIDE RECORDS SUMMARY | 2024-12-03 10:56 | XMS_ITS | Encounter Summary ---
Author Organization [facility] Address [address] [place] [address] Phone Care Team Providers Care Sound Engineer Name Role Phone Jacinto Chaudhary MD Primary Care Provider [phone] Encounter Details Date Type Department Care Team (Late st Contact Info) Description 02/27/2013 Documentation [facility] [place] Family Medicine [address] [place] [address] Family Medicine, Physician [address] [place] [address] Social History Tobacco Use Types Packs/Day Years [...] on filedocumented in this encounter Care Teams Sound Engineer Relationship Specialty Start Date End Date Jacinto Chaudhary MD [address] [place] [address] [place] [phone] PCP - General 09/22/16 08/02/22 documented as of this encounter
--- OUTSIDE RECORDS SUMMARY | 2024-12-03 10:56 | XMS_ITS | Encounter Summary ---
Author Organization [facility] Address [address] [place] [address] Phone Care Team Providers Care Hematologist Name Role Phone Jacinto Chaudhary MD Primary Care Provider [phone] Encounter Details Date Type Department Care Team (Late st Contact Info) Description 04/07/2014 Documentation [facility] [place] Family Medicine [address] [place] [address] Family Medicine, Physician [address] [place] [address] Social History Tobacco Use Types Packs/Day Years [...] on filedocumented in this encounter Care Teams Hematologist Relationship Specialty Start Date End Date Jacinto Chaudhary MD [address] [place] [address] [place] [phone] PCP - General 09/22/16 08/02/22 documented as of this encounter
--- OUTSIDE RECORDS SUMMARY | 2024-12-03 10:56 | XMS_ITS | Encounter Summary ---
Author Organization [facility] Address [address] [place] [address] Phone Care Team Providers Care Associate Buyer Name Role Phone Jacinto Chaudhary MD Primary Care Provider [phone] Encounter Details Date Type Department Care Team (Late st Contact Info) Description 04/04/2013 Documentation [facility] [place] [address] [place] [address] Family Medicine, Physician [address] [place] [address] Social History Tobacco Use Types Packs/Day Years [...] on filedocumented in this encounter Care Teams Associate Buyer Relationship Specialty Start Date End Date Jacinto Chaudhary MD [address] [place] [address] [place] [phone] PCP - General 09/22/16 08/02/22 documented as of this encounter
--- OUTSIDE RECORDS SUMMARY | 2024-12-03 10:56 | XMS_ITS | Encounter Summary ---
Author Organization [facility] Address [address] [place] [address] Phone Care Team Providers Care Rug Cleaner Helper Name Role Phone Jacinto Chaudhary MD Primary Care Provider [phone] Encounter Details Date Type Department Care Team (Late st Contact Info) Description 04/09/[address] [facility] [place] Family Medicine [address] [place] [address] Family Medicine, Physician [address] [place] [address] Social History Tobacco Use Types Packs/Day Years [...] on filedocumented in this encounter Care Teams Rug Cleaner Helper Relationship Specialty Start Date End Date Jacinto Chaudhary MD [address] [place] [address] [place] [phone] PCP - General 09/22/16 08/02/22 documented as of this encounter
--- OUTSIDE RECORDS SUMMARY | 2024-12-03 10:56 | XMS_ITS | Encounter Summary ---
Author Organization [facility] Address [address] [place] [address] Phone Care Team Providers Care Ncr Operator Name Role Phone Jacinto Chaudhary MD Primary Care Provider [phone] Encounter Details Date Type Department Care Team (Late st Contact Info) Description 04/26/2010 Documentation [facility] [place] Family Medicine [address] [place] [address] Family Medicine, Physician [address] [place] [address] Social History Tobacco Use Types Packs/Day Years [...] on filedocumented in this encounter Care Teams Ncr Operator Relationship Specialty Start Date End Date Jacinto Chaudhary MD [address] [place] [address] [place] [id number] PCP - General 09/22/16 08/02/22 documented as of this encounter
--- OUTSIDE RECORDS SUMMARY | 2024-12-03 10:56 | XMS_ITS | Encounter Summary ---
Author Organization [facility] Address [address] [place] [address] Phone Care Team Providers Care Still Cleaner Tube Name Role Phone Jacinto Chaudhary MD Primary Care Provider [phone] Encounter Details Date Type Department Care Team (Late st Contact Info) Description 04/09/2015 [place]ation [facility] [place] [address] [place] [address] Family Medicine, Physician [address] [place] [address] Social History Tobacco Use Types Packs/Day Years [...] on filedocumented in this encounter Care Teams Still Cleaner Tube Relationship Specialty Start Date End Date Jacinto Chaudhary MD [address] [place] [address] [place] [phone] PCP - General 09/22/16 08/02/22 documented as of this encounter
--- OUTSIDE RECORDS SUMMARY | 2024-12-03 10:56 | XMS_ITS | Encounter Summary ---
Author Organization [facility] Address [address] [place] [address] Phone Care Team Providers Care Client Manager Name Role Phone Jacinto Chaudhary MD Primary Care Provider Encounter Details Date Type Department Care Team (Late st Contact Info) Description 04/09/2015 Documentation [facility] [place] Family Medicine [address] [place] [address] Family Medicine, Physician [address] [place] [address] Social History Tobacco Use Types Packs/Day Years [...] on filedocumented in this encounter Care Teams Client Manager Relationship Specialty Start Date End Date Jacinto Chaudhary MD [address] [place] [address] [place] [phone] PCP - General 09/22/16 08/02/22 documented as of this encounter
== END 2024-12-03 09:33 | disposition home or self-care (01) ==
LOC: HO.HMGAL 09:32
PROVIDERS: PCP Physician Assistant; Visit Provider Registered Nurse Emergency
DX: J30.89 Other allergic rhinitis (principal)
CPT/HCPCS: 95117; 95165

== ENCOUNTER 2024-12-08 09:59 | Outpatient (AMB) | payer OTHER, SELFPAY ==
--- OUTSIDE RECORDS SUMMARY | 2024-12-08 11:46 | XMS_ITS | Encounter Summary ---
Author Organization [facility] Address [address] [place] [address] Phone Care Team Providers Care Director Merit System Name Role Phone Jacinto Chaudhary MD Primary Care Provider [phone] Encounter Details Date Type Department Care Team (Late st Contact Info) Description 10/14/2013 Documentation [facility] [place] [address] [place] [address] Family Medicine, Physician [address] [place] [address] Social History Tobacco Use Types Packs/Day Years [...] on filedocumented in this encounter Care Teams Director Merit System Relationship Specialty Start Date End Date Jacinto Chaudhary MD [address] [place] [address] [place] [phone] PCP - General 09/22/16 08/02/22 documented as of this encounter
--- OUTSIDE RECORDS SUMMARY | 2024-12-08 11:46 | XMS_ITS | Encounter Summary ---
Author Organization [facility] Address [address] [place] [address] Phone Care Team Providers Care Managing Principal Name Role Phone Jacinto Chaudhary MD Primary Care Provider [phone] Encounter Details Date Type Department Care Team (Late st Contact Info) Description 02/16/2011 Documentation [facility] [place] Family Medicine [address] [place] [address] Family Medicine, Physician [address] [place] [address] Social History Tobacco Use Types Packs/Day Years [...] on filedocumented in this encounter Care Teams Managing Principal Relationship Specialty Start Date End Date Jacinto Chaudhary MD [address] [place] [address] [place] [phone] PCP - General 09/22/16 08/02/22 documented as of this encounter
--- OUTSIDE RECORDS SUMMARY | 2024-12-08 11:46 | XMS_ITS | Clinical Summary ---
Author Organization [facility] Address [address] [place] [address] Phone Care Team Providers Care Temp Recruiter Name Role Phone Unavailable Primary Care Provider [...]
--- OUTSIDE RECORDS SUMMARY | 2024-12-08 11:46 | XMS_ITS | Encounter Summary ---
Author Organization [facility] Address [address] [place] [address] Phone Care Team Providers Care Group Fitness Manager Name Role Phone Jacinto Chaudhary MD Primary Care Provider [phone] Encounter Details Date Type Department Care Team (Late st Contact Info) Description 11/10/2013 Documentation [facility] [place] [address] [place] [address] Family Medicine, Physician [address] [place] [address] Social History Tobacco Use Types Packs/Day Years [...] on filedocumented in this encounter Care Teams Group Fitness Manager Relationship Specialty Start Date End Date Jacinto Chaudhary MD [address] [place] [address] [place] [phone] PCP - General 09/22/16 08/02/22 documented as of this encounter
--- OUTSIDE RECORDS SUMMARY | 2024-12-08 11:46 | XMS_ITS | Encounter Summary ---
Author Organization [facility] Address [address] [place] [address] Phone Care Team Providers Care Paleobotanist Name Role Phone Jacinto Chaudhary MD Primary Care Provider [phone] Encounter Details Date Type Department Care Team (Late st Contact Info) Description 11/25/[address] [facility] [place] Family Medicine [address] [place] [address] Family Medicine, Physician [address] [place] [address] Social History Tobacco Use Types Packs/Day Years [...] on filedocumented in this encounter Care Teams Paleobotanist Relationship Specialty Start Date End Date Jacinto Chaudhary MD [address] [place] [address] [place] [phone] PCP - General 09/22/16 08/02/22 documented as of this encounter
--- OUTSIDE RECORDS SUMMARY | 2024-12-08 11:46 | XMS_ITS | Encounter Summary ---
Author Organization [facility] Address [address] [place] [address] Phone Care Team Providers Care Csr Technician Name Role Phone Jacinto Chaudhary MD Primary Care Provider [phone] Encounter Details Date Type Department Care Team (Late st Contact Info) Description 03/14/2012 Documentation [facility] [place] [address] [place] [address] Family Medicine, Physician [address] [place] [address] Social History Tobacco Use Types Packs/Day Years [...] on filedocumented in this encounter Care Teams Csr Technician Relationship Specialty Start Date End Date Jacinto Chaudhary MD [address] [place] [address] [place] [phone] PCP - General 09/22/16 08/02/22 documented as of this encounter
--- OUTSIDE RECORDS SUMMARY | 2024-12-08 11:46 | XMS_ITS | Encounter Summary ---
Author Organization [facility] Address [address] [place] [address] Phone Care Team Providers Care Certified Coding Specialist Name Role Phone Jacinto Chaudhary MD Primary Care Provider [phone] Encounter Details Date Type Department Care Team (Late st Contact Info) Description 09/28/2016 Conversion Encounter [facility] [place] [address] [place] [address] Social History Tobacco Use Types Packs/Day Years [...] filedocumented in this encounter Care Teams Certified Coding Specialist Relationship Specialty Start Date End Date Jacinto Chaudhary MD [address] [facility] [place] [address] PCP - General 09/22/16 08/02/22 documented as of this encounter
--- OUTSIDE RECORDS SUMMARY | 2024-12-08 11:46 | XMS_ITS | Encounter Summary ---
Author Organization [facility] Address [address] [place] [address] Phone Care Team Providers Care Maintainer Sewer And Waterworks Name Role Phone Jacinto Chaudhary MD Primary Care Provider [phone] Encounter Details Date Type Department Care Team (Late st Contact Info) Description 08/19/2010 Documentation [facility] [place] [address] [place] [address] Family Medicine, Physician [address] [place] [address] Social History Tobacco Use Types Packs/Day Years [...] on filedocumented in this encounter Care Teams Maintainer Sewer And Waterworks Relationship Specialty Start Date End Date Jacinto Chaudhary MD [address] [place] [address] [place] [phone] PCP - General 09/22/16 08/02/22 documented as of this encounter
--- OUTSIDE RECORDS SUMMARY | 2024-12-08 11:46 | XMS_ITS | Encounter Summary ---
Author Organization [facility] Address [address] [place] [address] Phone Care Team Providers Care Mincing Machine Operator Name Role Phone Jacinto Chaudhary MD Primary Care Provider [phone] Encounter Details Date Type Department Care Team (Late st Contact Info) Description 11/10/2013 Documentation [facility] [place] [address] [place] [address] Family Medicine, Physician [address] [place] [address] Social History Tobacco Use Types Packs/Day Years [...] on filedocumented in this encounter Care Teams Mincing Machine Operator Relationship Specialty Start Date End Date Jacinto Chaudhary MD [address] [place] [address] [place] [phone] PCP - General 09/22/16 08/02/22 documented as of this encounter
--- OUTSIDE RECORDS SUMMARY | 2024-12-08 11:46 | XMS_ITS | Encounter Summary ---
Author Organization [facility] Address [address] [place] [address] Phone Care Team Providers Care Manager Creative Services Name Role Phone Jacinto Chaudhary MD Primary Care Provider Encounter Details Date Type Department Care Team (Late st Contact Info) Description 02/16/2011 Documentation [facility] [place] [address] [place] [address] Family Medicine, Physician [address] [place] [address] Social History Tobacco Use Types Packs/Day Years [...] on filedocumented in this encounter Care Teams Manager Creative Services Relationship Specialty Start Date End Date Jacinto Chaudhary MD [address] [place] [address] [place] [phone] PCP - General 09/22/16 08/02/22 documented as of this encounter
--- OUTSIDE RECORDS SUMMARY | 2024-12-08 11:46 | XMS_ITS | Encounter Summary ---
Author Organization [facility] Address [address] [place] [address] Phone Care Team Providers Care Ham Passer Name Role Phone Jacinto Chaudhary MD Primary Care Provider [phone] Encounter Details Date Type Department Care Team (Late st Contact Info) Description 04/13/2016 Documentation [facility] [place] [address] [place] [address] Family Medicine, Physician [address] [place] [address] Social History Tobacco Use Types Packs/Day Years [...] on filedocumented in this encounter Care Teams Ham Passer Relationship Specialty Start Date End Date Jacinto Chaudhary MD [address] [place] [address] [place] [phone] PCP - General 09/22/16 08/02/22 documented as of this encounter
--- OUTSIDE RECORDS SUMMARY | 2024-12-08 11:46 | XMS_ITS | Encounter Summary ---
Author Organization [facility] Address [address] [place] [address] Phone Care Team Providers Care Leader Assembler Name Role Phone Jacinto Chaudhary MD Primary Care Provider [phone] Encounter Details Date Type Department Care Team (Late st Contact Info) Description 04/14/2016 Documentation [facility] [place] [address] [place] [address] Family Medicine, Physician [address] [place] [address] Social History Tobacco Use Types Packs/Day Years [...] on filedocumented in this encounter Care Teams Leader Assembler Relationship Specialty Start Date End Date Jacinto Chaudhary MD [address] [place] [address] [place] [phone] PCP - General 09/22/16 08/02/22 documented as of this encounter
--- OUTSIDE RECORDS SUMMARY | 2024-12-08 11:46 | XMS_ITS | Encounter Summary ---
Author Organization [facility] Address [address] [place] [address] Phone Care Team Providers Care Technician Submarine Cable Equipment Name Role Phone Jacinto Chaudhary MD Primary Care Provider [phone] Encounter Details Date Type Department Care Team (Late st Contact Info) Description 05/09/2013 Documentation [facility] [place] [address] [place] [address] Family Medicine, Physician [address] [place] [address] Social History Tobacco Use Types Packs/Day Years [...] on filedocumented in this encounter Care Teams Technician Submarine Cable Equipment Relationship Specialty Start Date End Date Jacinto Chaudhary MD [address] [place] [address] [place] [phone] PCP - General 09/22/16 08/02/22 documented as of this encounter
--- OUTSIDE RECORDS SUMMARY | 2024-12-08 11:47 | XMS_ITS | Encounter Summary ---
Author Organization [facility] Address [address] [place] [address] Phone Care Team Providers Care Wealth Management Director Name Role Phone Jacinto Chaudhary MD Primary Care Provider [phone] Encounter Details Date Type Department Care Team (Late st Contact Info) Description 04/07/2014 Documentation [facility] [place] Family Medicine [address] [place] [address] Family Medicine, Physician [address] [place] [address] Social History Tobacco Use Types Packs/Day Years [...] on filedocumented in this encounter Care Teams Wealth Management Director Relationship Specialty Start Date End Date Jacinto Chaudhary MD [address] [place] [address] [place] [phone] PCP - General 09/22/16 08/02/22 documented as of this encounter
--- OUTSIDE RECORDS SUMMARY | 2024-12-08 11:47 | XMS_ITS | Encounter Summary ---
Author Organization [facility] Address [address] [place] [address] Phone Care Team Providers Care Debridging Machine Operator Name Role Phone Jacinto Chaudhary MD Primary Care Provider [phone] Encounter Details Date Type Department Care Team (Late st Contact Info) Description 04/09/2015 Documentation [facility] [place] Family [place] [address] [place] [address] Family Medicine, Physician [address] [place] [address] Social History Tobacco Use Types Packs/Day Years [...] on filedocumented in this encounter Care Teams Debridging Machine Operator Relationship Specialty Start Date End Date Jacinto Chaudhary MD [address] [place] [address] [place] [phone] PCP - General 09/22/16 08/02/22 documented as of this encounter
--- OUTSIDE RECORDS SUMMARY | 2024-12-08 11:47 | XMS_ITS | Encounter Summary ---
Author Organization [facility] Address [address] [place] [address] Phone Care Team Providers Care Hearing Specialist Name Role Phone Jacinto Chaudhary MD Primary Care Provider [phone] Encounter Details Date Type Department Care Team (Late st Contact Info) Description 04/04/2013 Documentation [facility] [place] Family [place] [address] [place] [address] Family Medicine, Physician [address] [place] [address] Social History Tobacco Use Types Packs/Day Years [...] on filedocumented in this encounter Care Teams Hearing Specialist Relationship Specialty Start Date End Date Jacinto Chaudhary MD [address] [place] [address] [place] [phone] PCP - General 09/22/16 08/02/22 documented as of this encounter
--- OUTSIDE RECORDS SUMMARY | 2024-12-08 11:47 | XMS_ITS | Encounter Summary ---
Author Organization [facility] Address [address] [place] [address] Phone Care Team Providers Care German Instructor Name Role Phone Jacinto Chaudhary MD Primary Care Provider [phone] Encounter Details Date Type Department Care Team (Late st Contact Info) Description 04/09/2015 Documentation [facility] [place] Family Medicine [address] [place] [address] Family Medicine, Physician [address] [place] [address] Social History Tobacco Use Types Packs/Day Years [...] on filedocumented in this encounter Care Teams German Instructor Relationship Specialty Start Date End Date Jacinto Chaudhary MD [address] [place] [address] [place] Null [phone] PCP - General 09/22/16 08/02/22 documented as of this encounter
--- OUTSIDE RECORDS SUMMARY | 2024-12-08 11:47 | XMS_ITS | Encounter Summary ---
Author Organization [facility] Address [address] [place] [address] Phone Care Team Providers Care Intranet Specialist Name Role Phone Jacinto Chaudhary MD Primary Care Provider [phone] Encounter Details Date Type Department Care Team (Late st Contact Info) Description 04/14/2016 [place]ation [facility] [place] [address] [place] [address] Family Medicine, Physician [address] [place] [address] Social History Tobacco Use Types Packs/Day Years [...] on filedocumented in this encounter Care Teams Intranet Specialist Relationship Specialty Start Date End Date Jacinto Chaudhary MD [address] [place] [address] [place] [phone] PCP - General 09/22/16 08/02/22 documented as of this encounter
--- OUTSIDE RECORDS SUMMARY | 2024-12-08 11:47 | XMS_ITS | Encounter Summary ---
Author Organization [facility] Address [address] [place] [address] Phone Care Team Providers Care Food Editor Name Role Phone Jacinto Chaudhary MD Primary Care Provider [phone] Encounter Details Date Type Department Care Team (Late st Contact Info) Description 04/09/2015 Documentation [facility] [place] [address] [place] [address] Family Medicine, Physician [address] [place] [address] Social History Tobacco Use Types Packs/Day Years [...] on filedocumented in this encounter Care Teams Food Editor Relationship Specialty Start Date End Date Jacinto Chaudhary MD [address] [place] [address] [place] [phone] PCP - General 09/22/16 08/02/22 documented as of this encounter
--- OUTSIDE RECORDS SUMMARY | 2024-12-08 11:47 | XMS_ITS | Encounter Summary ---
Author Organization [facility] Address [address] [place] [address] Phone Care Team Providers Care Valve Technician Name Role Phone Jacinto Chaudhary MD Primary Care Provider [phone] Encounter Details Date Type Department Care Team (Late st Contact Info) Description 04/26/2010 Documentation [facility] [place] Family Medicine [address] [place] [address] Family Medicine, Physician [address] [place] [address] Social History Tobacco Use Types Packs/Day Years [...] on filedocumented in this encounter Care Teams Valve Technician Relationship Specialty Start Date End Date Jacinto Chaudhary MD [address] [place] [address] [place] [phone] PCP - General 09/22/16 08/02/22 documented as of this encounter
--- OUTSIDE RECORDS SUMMARY | 2024-12-08 11:47 | XMS_ITS | Encounter Summary ---
Author Organization [facility] Address [address] [place] [address] Phone Care Team Providers Care Water Taxi Ferry Operator Name Role Phone Jacinto Chaudhary MD Primary Care Provider [phone] Encounter Details Date Type Department Care Team (Late st Contact Info) Description 04/07/2014 Documentation [facility] [place] [address] [place] [address] Family Medicine, Physician [address] [place] [address] Social History Tobacco Use Types Packs/Day Years [...] on filedocumented in this encounter Care Teams Water Taxi Ferry Operator Relationship Specialty Start Date End Date Jacinto Chaudhary MD [address] [place] [address] [place] [phone] PCP - General 09/22/16 08/02/22 documented as of this encounter
--- OUTSIDE RECORDS SUMMARY | 2024-12-08 11:47 | XMS_ITS | Encounter Summary ---
Author Organization [facility] Address [address] [place] [address] Phone Care Team Providers Care V/Stol Landing Signal Officer Name Role Phone Jacinto Chaudhary MD Primary Care Provider [phone] Encounter Details Date Type Department Care Team (Late st Contact Info) Description 04/04/2013 Documentation [facility] [place] Family Medicine [address] [place] [address] Family Medicine, Physician [address] [place] [address] Social History Tobacco Use Types Packs/Day Years [...] on filedocumented in this encounter Care Teams V/Stol Landing Signal Officer Relationship Specialty Start Date End Date Jacinto Chaudhary MD [address] [place] [address] [place] [phone] PCP - General 09/22/16 08/02/22 documented as of this encounter
--- OUTSIDE RECORDS SUMMARY | 2024-12-08 11:47 | XMS_ITS | Encounter Summary ---
Author Organization [facility] Address [address] [place] [address] Phone Care Team Providers Care Horticulture Instructor Name Role Phone Jacinto Chaudhary MD Primary Care Provider [phone] Encounter Details Date Type Department Care Team (Late st Contact Info) Description 02/27/2013 Documentation [facility] [place] [address] [place] [address] Family Medicine, Physician [address] [place] [address] Social History Tobacco Use Types Packs/Day Years [...] on filedocumented in this encounter Care Teams Horticulture Instructor Relationship Specialty Start Date End Date Jacinto Chaudhary MD [address] [place] [address] [place] [phone] PCP - General 09/22/16 08/02/22 documented as of this encounter
--- OUTSIDE RECORDS SUMMARY | 2024-12-08 11:47 | XMS_ITS | Encounter Summary ---
Author Organization [facility] Address [address] [place] [address] Phone Care Team Providers Care Instructor Adjunct Pharmacy Technician Name Role Phone Jacinto Chaudhary MD Primary Care Provider [phone] Encounter Details Date Type Department Care Team (Late st Contact Info) Description 02/27/2013 Documentation [facility] [place] [address] [place] [address] Family Medicine, Physician [address] [place] [address] Social History Tobacco Use Types Packs/Day Years [...] on filedocumented in this encounter Care Teams Instructor Adjunct Pharmacy Technician Relationship Specialty Start Date End Date Jacinto Chaudhary MD [address] [place] [address] [place] [phone] PCP - General 09/22/16 08/02/22 documented as of this encounter
--- OUTSIDE RECORDS SUMMARY | 2024-12-08 11:47 | XMS_ITS | Encounter Summary ---
Author Organization [facility] Address [address] [place] [address] Phone Care Team Providers Care Boiler House Mechanic Name Role Phone Jacinto Chaudhary MD Primary Care Provider [phone] Encounter Details Date Type Department Care Team (Late st Contact Info) Description 03/14/2012 Documentation [facility] [place] [address] [place] [address] Family Medicine, Physician [address] [place] [address] Social History Tobacco Use Types Packs/Day Years [...] on filedocumented in this encounter Care Teams Boiler House Mechanic Relationship Specialty Start Date End Date Jacinto Chaudhary MD [address] [place] [address] [place] [phone] PCP - General 09/22/16 08/02/22 documented as of this encounter
== END 2024-12-08 10:00 | disposition home or self-care (01) ==
LOC: HO.HMGAL 09:59
PROVIDERS: PCP Physician Assistant; Visit Provider Registered Nurse Emergency
DX: J30.89 Other allergic rhinitis (principal)
CPT/HCPCS: 95117; 95165

== ENCOUNTER 2024-12-15 09:36 | Outpatient (AMB) | payer OTHER, SELFPAY ==
--- OUTSIDE RECORDS SUMMARY | 2024-12-15 10:59 | XMS_ITS | Encounter Summary ---
Author Organization [facility] Address [address] [place] [address] Phone Care Team Providers Care Sustainability Coach Name Role Phone Jacinto Chaudhary MD Primary Care Provider [phone] Encounter Details Date Type Department Care Team (Late st Contact Info) Description 11/10/2013 Documentation [facility] [place] [address] [place] [address] Family Medicine, Physician [address] [place] [address] Social History Tobacco Use Types Packs/Day Years [...] on filedocumented in this encounter Care Teams Sustainability Coach Relationship Specialty Start Date End Date Jacinto Chaudhary MD [address] [place] [address] [place] [phone] PCP - General 09/22/16 08/02/22 documented as of this encounter
--- OUTSIDE RECORDS SUMMARY | 2024-12-15 10:59 | XMS_ITS | Encounter Summary ---
Author Organization [facility] Address [address] [place] [address] Phone Care Team Providers Care Fire Services Plumber Name Role Phone Jacinto Chaudhary MD Primary Care Provider [phone] Encounter Details Date Type Department Care Team (Late st Contact Info) Description 08/19/2010 Documentation [facility] Family Medicine [address] [place] [address] Family Medicine, Physician [address] [place] [address] Social History Tobacco Use Types Packs/Day Years [...] on filedocumented in this encounter Care Teams Fire Services Plumber Relationship Specialty Start Date End Date Jacinto Chaudhary MD [address] [place] [address] [place] [phone] PCP - General 09/22/16 08/02/22 documented as of this encounter
--- OUTSIDE RECORDS SUMMARY | 2024-12-15 10:59 | XMS_ITS | Encounter Summary ---
Author Organization [facility] Address [address] [place] [address] Phone Care Team Providers Care Hand Binder Stripper Name Role Phone Jacinto Chaudhary MD Primary Care Provider Encounter Details Date Type Department Care Team (Late st Contact Info) Description 11/25/2015 Documentation [facility] [place] [address] [place] [address] Family Medicine, Physician [address] [place] [address] Social History Tobacco Use Types Packs/Day Years [...] filedocumented in this encounter Care Teams Hand Binder Stripper Relationship Specialty Start Date End Date Jacinto Chaudhary MD [address] [place] [address] [place] [phone] PCP - General 09/22/16 08/02/22 documented as of this encounter
--- OUTSIDE RECORDS SUMMARY | 2024-12-15 10:59 | XMS_ITS | Encounter Summary ---
Author Organization [facility] Address [address] [place] [address] Phone Care Team Providers Care Lather Apprentice Name Role Phone Jacinto Chaudhary MD Primary Care Provider Encounter Details Date Type Department Care Team (Late st Contact Info) Description 02/16/2011 Documentation [facility] [place] Family Medicine [address] [place] [address] Family Medicine, Physician [address] [place] [address] Social History Tobacco Use Types Packs/Day Years [...] on filedocumented in this encounter Care Teams Lather Apprentice Relationship Specialty Start Date End Date Jacinto Chaudhary MD [address] [place] [address] [place] [phone] PCP - General 09/22/16 08/02/22 documented as of this encounter
--- OUTSIDE RECORDS SUMMARY | 2024-12-15 10:59 | XMS_ITS | Encounter Summary ---
Author Organization [facility] Address [address] [place] [address] Phone Care Team Providers Care Dispatcher Refinery Name Role Phone Jacinto Chaudhary MD Primary Care Provider [phone] Encounter Details Date Type Department Care Team (Late st Contact Info) Description 03/14/2012 Documentation [facility] [place] Family Medicine [address] [place] [address] Family Medicine, Physician [address] [place] [address] Social History Tobacco Use Types Packs/Day Years [...] on filedocumented in this encounter Care Teams Dispatcher Refinery Relationship Specialty Start Date End Date Jacinto Chaudhary MD [address] [place] [address] [place] [phone] PCP - General 09/22/16 08/02/22 documented as of this encounter
--- OUTSIDE RECORDS SUMMARY | 2024-12-15 10:59 | XMS_ITS | Clinical Summary ---
Author Organization [facility] Address [address] [place] [address] Phone Care Team Providers Care Dietetic Intern Name Role Phone Unavailable Primary Care Provider [...]
--- OUTSIDE RECORDS SUMMARY | 2024-12-15 10:59 | XMS_ITS | Encounter Summary ---
Author Organization [facility] Address [address] [place] [address] Phone Care Team Providers Care Senior Litigation Paralegal Name Role Phone Jacinto Chaudhary MD Primary Care Provider [phone] Encounter Details Date Type Department Care Team (Late st Contact Info) Description 09/28/2016 Conversion Encounter [facility] [place] [address] [place] [address] Social History Tobacco Use Types Packs/Day Years [...] on filedocumented in this encounter Care Teams Senior Litigation Paralegal Relationship Specialty Start Date End Date Jacinto Chaudhary MD [address] [facility] [place] [address] PCP - General 09/22/16 08/02/22 documented as of this encounter
--- OUTSIDE RECORDS SUMMARY | 2024-12-15 10:59 | XMS_ITS | Encounter Summary ---
Author Organization [facility] Address [address] [place] [address] Phone Care Team Providers Care Clinical Data Coordinator Name Role Phone Jacinto Chaudhary MD Primary Care Provider [phone] Encounter Details Date Type Department Care Team (Late st Contact Info) Description 04/14/2016 Documentation [facility] [place] Family Medicine [address] [place] [address] Family Medicine, Physician [address] [place] [address] Social History Tobacco Use Types Packs/Day Years [...] in this encounter Care Teams Clinical Data Coordinator Relationship Specialty Start Date End Date Jacinto Chaudhary MD [address] [place] [address] [place] [phone] PCP - General 09/22/16 08/02/22 documented as of this encounter
--- OUTSIDE RECORDS SUMMARY | 2024-12-15 10:59 | XMS_ITS | Encounter Summary ---
Author Organization [facility] Address [address] [place] [address]807 Phone Care Team Providers Care Hotel Superintendent Name Role Phone Jacinto Chaudhary MD Primary Care Provider [phone] Encounter Details Date Type Department Care Team (Late st Contact Info) Description 02/16/2011 Documentation [facility] [place] [address] [place] [address] Family Medicine, Physician [address] [place] [address] Social History Tobacco Use Types Packs/Day Years [...] on filedocumented in this encounter Care Teams Hotel Superintendent Relationship Specialty Start Date End Date Jacinto Chaudhary MD [address] [place] [address] [place] [phone] PCP - General 09/22/16 08/02/22 documented as of this encounter
--- OUTSIDE RECORDS SUMMARY | 2024-12-15 10:59 | XMS_ITS | Encounter Summary ---
Author Organization [facility] Address [address] [place] [address] Phone Care Team Providers Care Assessment Rn Name Role Phone Jacinto Chaudhary MD Primary Care Provider [phone] Encounter Details Date Type Department Care Team (Late st Contact Info) Description 05/09/2013 Documentation [facility] [place] Family Medicine [address] [place] [address] Family Medicine, Physician [address] [place] [address] Social History Tobacco Use Types Packs/Day Years [...] on filedocumented in this encounter Care Teams Assessment Rn Relationship Specialty Start Date End Date Jacinto Chaudhary MD [address] [place] [address] [place] [phone] PCP - General 09/22/16 08/02/22 documented as of this encounter
--- OUTSIDE RECORDS SUMMARY | 2024-12-15 10:59 | XMS_ITS | Encounter Summary ---
Author Organization [facility] Address [address] [place] [address] Phone Care Team Providers Care International Trade Specialist Name Role Phone Jacinto Chaudhary MD Primary Care Provider [phone] Encounter Details Date Type Department Care Team (Late st Contact Info) Description 11/10/2013 Documentation [facility] [place] Family [place] [address] [place] [address] Family Medicine, Physician [address] [place] [address] Social History Tobacco Use Types Packs/Day Years [...] on filedocumented in this encounter Care Teams International Trade Specialist Relationship Specialty Start Date End Date Jacinto Chaudhary MD [address] [place] [address] [place] [phone] PCP - General 09/22/16 08/02/22 documented as of this encounter
--- OUTSIDE RECORDS SUMMARY | 2024-12-15 10:59 | XMS_ITS | Encounter Summary ---
Author Organization [facility] Address [address] [place] [address] Phone Care Team Providers Care Carroter Name Role Phone Jacinto Chaudhary MD Primary Care Provider [phone] Encounter Details Date Type Department Care Team (Late st Contact Info) Description 10/14/2013 Documentation [facility] [place] Family Medicine [address] [place] [address] Family Medicine, Physician [address] [place] [address] Social History Tobacco Use Types Packs/Day Years [...] on filedocumented in this encounter Care Teams Carroter Relationship Specialty Start Date End Date Jacinto Chaudhary MD [address] [place] [address] [place] [phone] PCP - General 09/22/16 08/02/22 documented as of this encounter
--- OUTSIDE RECORDS SUMMARY | 2024-12-15 11:00 | XMS_ITS | Encounter Summary ---
Author Organization [facility] Address [address] [place] [address] Phone Care Team Providers Care Door To Door Selling Agent Name Role Phone Jacinto Chaudhary MD Primary Care Provider [phone] Encounter Details Date Type Department Care Team (Late st Contact Info) Description 04/09/[address] [facility] [place] Family Medicine [address] [place] [address] Family Medicine, Physician [address] [place] [address] Social History Tobacco Use Types Packs/Day Years [...] on filedocumented in this encounter Care Teams Door To Door Selling Agent Relationship Specialty Start Date End Date Jacinto Chaudhary MD [address] [place] [address] [place] [phone] PCP - General 09/22/16 08/02/22 documented as of this encounter
--- OUTSIDE RECORDS SUMMARY | 2024-12-15 11:00 | XMS_ITS | Encounter Summary ---
Author Organization [facility] Address [address] [place] [address] Phone Care Team Providers Care Rn Clinical Appeals Name Role Phone Jacinto Chaudhary MD Primary Care Provider [phone] Encounter Details Date Type Department Care Team (Late st Contact Info) Description 03/14/2012 Documentation [facility] [place] [address] [place] [address] Family Medicine, Physician [address] [place] [address] Social History Tobacco Use Types Packs/Day Years [...] on filedocumented in this encounter Care Teams Rn Clinical Appeals Relationship Specialty Start Date End Date Jacinto Chaudhary MD [address] [place] [address] [place] [phone] PCP - General 09/22/16 08/02/22 documented as of this encounter
--- OUTSIDE RECORDS SUMMARY | 2024-12-15 11:00 | XMS_ITS | Encounter Summary ---
Author Organization [facility] Address [address] [place] [address] Phone Care Team Providers Care Elementary Principal Name Role Phone Jacinto Chaudhary MD Primary Care Provider [phone] Encounter Details Date Type Department Care Team (Late st Contact Info) Description 04/13/2016 Documentation [facility] [place] [address] [place] [address] Family Medicine, Physician [address] [place] [address] Social History Tobacco Use Types Packs/Day Years [...] on filedocumented in this encounter Care Teams Elementary Principal Relationship Specialty Start Date End Date Jacinto Chaudhary MD [address] [place] [address] [place] [phone] PCP - General 09/22/16 08/02/22 documented as of this encounter
--- OUTSIDE RECORDS SUMMARY | 2024-12-15 11:00 | XMS_ITS | Encounter Summary ---
Author Organization [facility] Address [address] [place] [address] Phone Care Team Providers Care Inspector Water Pollution Control Name Role Phone Jacinto Chaudhary MD Primary Care Provider [phone] Encounter Details Date Type Department Care Team (Late st Contact Info) Description 04/09/2015 Documentation [facility] [place] [address] [place] [address] Family Medicine, Physician [address] [place] [address] Social History Tobacco Use Types Packs/Day Years [...] on filedocumented in this encounter Care Teams Inspector Water Pollution Control Relationship Specialty Start Date End Date Jacinto Chaudhary MD [address] [place] [address] [place] [phone] PCP - General 09/22/16 08/02/22 documented as of this encounter
--- OUTSIDE RECORDS SUMMARY | 2024-12-15 11:00 | XMS_ITS | Encounter Summary ---
Author Organization [facility] Address [address] [place] [address] Phone Care Team Providers Care Heel Dipper Name Role Phone Jacinto Chaudhary MD Primary Care Provider [phone] Encounter Details Date Type Department Care Team (Late st Contact Info) Description 04/07/2014 Documentation [facility] [place] [address] [place] [address] Family Medicine, Physician [address] [place] [address] Social History Tobacco Use Types Packs/Day Years [...] on filedocumented in this encounter Care Teams Heel Dipper Relationship Specialty Start Date End Date Jacinto Chaudhary MD [address] [place] [address] [place] [phone] PCP - General 09/22/16 08/02/22 documented as of this encounter
--- OUTSIDE RECORDS SUMMARY | 2024-12-15 11:00 | XMS_ITS | Encounter Summary ---
Author Organization [facility] Address [address] [place] [address] Phone Care Team Providers Care Bus Analyst Name Role Phone Jacinto Chaudhary MD Primary Care Provider [phone] Encounter Details Date Type Department Care Team (Late st Contact Info) Description 04/04/2013 Documentation [facility] [place] Family Medicine [address] [place] [address] Family Medicine, Physician [address] [place] [address] Social History Tobacco Use Types Packs/Day Years [...] on filedocumented in this encounter Care Teams Bus Analyst Relationship Specialty Start Date End Date Jacinto Chaudhary MD [address] [place] [address] [place] [phone] PCP - General 09/22/16 08/02/22 documented as of this encounter
--- OUTSIDE RECORDS SUMMARY | 2024-12-15 11:00 | XMS_ITS | Encounter Summary ---
Author Organization [facility] Address [address] [place] [address] Phone Care Team Providers Care Patient Admitting Clerk Name Role Phone Jacinto Chaudhary MD Primary Care Provider [phone] Encounter Details Date Type Department Care Team (Late st Contact Info) Description 02/27/2013 Documentation [facility] [place] Family Medicine [address] [place] [address] Family Medicine, Physician [address] [place] [address] Social History Tobacco Use Types Packs/Day Years [...] on filedocumented in this encounter Care Teams Patient Admitting Clerk Relationship Specialty Start Date End Date Jacinto Chaudhary MD [address] [place] [address] [place] [id number] PCP - General 09/22/16 08/02/22 documented as of this encounter
--- OUTSIDE RECORDS SUMMARY | 2024-12-15 11:00 | XMS_ITS | Encounter Summary ---
Author Organization [facility] Address [address] [place] [address] Phone Care Team Providers Care Puttying And Calking Supervisor Name Role Phone Jacinto Chaudhary MD Primary Care Provider [phone] Encounter Details Date Type Department Care Team (Late st Contact Info) Description 04/04/2013 Documentation [facility] [place] [address] [place] [address] Family Medicine, Physician [address] [place] [address] Social History Tobacco Use Types Packs/Day Years [...] on filedocumented in this encounter Care Teams Puttying And Calking Supervisor Relationship Specialty Start Date End Date Jacinto Chaudhary MD [address] [place] [address] [place] [phone] PCP - General 09/22/16 08/02/22 documented as of this encounter
--- OUTSIDE RECORDS SUMMARY | 2024-12-15 11:00 | XMS_ITS | Encounter Summary ---
Author Organization [facility] Address [address] [place] [address] Phone Care Team Providers Care Hip Hop Performers Name Role Phone Jacinto Chaudhary MD Primary Care Provider [phone] Encounter Details Date Type Department Care Team (Late st Contact Info) Description 04/09/2015 Documentation [facility] [place] [address] [place] [address] Family Medicine, Physician [address] [place] [address] Social History Tobacco Use Types Packs/Day Years [...] on filedocumented in this encounter Care Teams Hip Hop Performers Relationship Specialty Start Date End Date Jacinto Chaudhary MD [address] [place] [address] [place] Null [phone] PCP - General 09/22/16 08/02/22 documented as of this encounter
--- OUTSIDE RECORDS SUMMARY | 2024-12-15 11:00 | XMS_ITS | Encounter Summary ---
Author Organization [facility] Address [address] [place] [address] Phone Care Team Providers Care Washroom Attendant Name Role Phone Jacinto Chaudhary MD Primary Care Provider [phone] Encounter Details Date Type Department Care Team (Late st Contact Info) Description 04/14/2016 Documentation [facility] [place] Family Medicine [address] [place] [address] Family Medicine, Physician [address] [place] [address] Social History Tobacco Use Types Packs/Day Years [...] on filedocumented in this encounter Care Teams Washroom Attendant Relationship Specialty Start Date End Date Jacinto Chaudhary MD [address] [place] [address] [place] [id number] PCP - General 09/22/16 08/02/22 documented as of this encounter
--- OUTSIDE RECORDS SUMMARY | 2024-12-15 11:00 | XMS_ITS | Encounter Summary ---
Author Organization [facility] Address [address] [place] [address] Phone Care Team Providers Care C Wpf Developer Name Role Phone Jacinto Chaudhary MD Primary Care Provider [phone] Encounter Details Date Type Department Care Team (Late st Contact Info) Description 04/07/2014 Documentation [facility] Family Medicine [address] [place] [address] Family Medicine, Physician [address] [place] [address] Social History Tobacco Use Types Packs/Day Years [...] on filedocumented in this encounter Care Teams C Wpf Developer Relationship Specialty Start Date End Date Jacinto Chaudhary MD [address] [place] [address] [place] [id number] PCP - General 09/22/16 08/02/22 documented as of this encounter
--- OUTSIDE RECORDS SUMMARY | 2024-12-15 11:00 | XMS_ITS | Encounter Summary ---
Author Organization [facility] Address [address] [place] [address] Phone Care Team Providers Care Piano And Organ Refinisher Name Role Phone Jacinto Chaudhary MD Primary Care Provider [phone] Encounter Details Date Type Department Care Team (Late st Contact Info) Description 04/26/2010 Documentation [facility] [place] Family Medicine [address] [place] [address] Family Medicine, Physician [address] [place] [address] Social History Tobacco Use Types Packs/Day Years [...] on filedocumented in this encounter Care Teams Piano And Organ Refinisher Relationship Specialty Start Date End Date Jacinto Chaudhary MD [address] [place] [address] [place] [phone] PCP - General 09/22/16 08/02/22 documented as of this encounter
--- OUTSIDE RECORDS SUMMARY | 2024-12-15 11:00 | XMS_ITS | Encounter Summary ---
Author Organization [facility] Address [address] [place] [address] Phone Care Team Providers Care Customer Acquisition Manager Name Role Phone Jacinto Chaudhary MD Primary Care Provider Encounter Details Date Type Department Care Team (Late st Contact Info) Description 02/27/2013 Documentation [facility] [place] [address] [place] [address] Family Medicine, Physician [address] [place] [address] Social History Tobacco Use Types Packs/Day Years [...] on filedocumented in this encounter Care Teams Customer Acquisition Manager Relationship Specialty Start Date End Date Jacinto Chaudhary MD [address] [place] [address] [place] [phone] PCP - General 09/22/16 08/02/22 documented as of this encounter
== END 2024-12-15 09:36 | disposition home or self-care (01) ==
LOC: HO.HMGAL 09:36
PROVIDERS: PCP Physician Assistant; Visit Provider Registered Nurse Emergency
DX: J30.89 Other allergic rhinitis (principal)
CPT/HCPCS: 95117; 95165

== ENCOUNTER 2024-12-22 09:57 | Outpatient (AMB) | payer OTHER, SELFPAY ==
--- OUTSIDE RECORDS SUMMARY | 2024-12-22 11:24 | XMS_ITS | Encounter Summary ---
Author Organization [facility] Address [address] [place] [address] Phone Care Team Providers Care Account Specialist Name Role Phone Jacinto Chaudhary MD Primary Care Provider [phone] Encounter Details Date Type Department Care Team (Late st Contact Info) Description 02/16/2011 Documentation [facility] [place] Family Medicine [address] [place] [address] Family Medicine, Physician [address] [place] [address] Social History Tobacco Use Types Packs/Day Years [...] on filedocumented in this encounter Care Teams Account Specialist Relationship Specialty Start Date End Date Jacinto Chaudhary MD [address] [place] [address] [place] [id number] PCP - General 09/22/16 08/02/22 documented as of this encounter
--- OUTSIDE RECORDS SUMMARY | 2024-12-22 11:24 | XMS_ITS | Encounter Summary ---
Author Organization [facility] Address [address] [place] [address] Phone Care Team Providers Care Artificial Flowers Supervisor Name Role Phone Jacinto Chaudhary MD Primary Care Provider [phone] Encounter Details Date Type Department Care Team (Late st Contact Info) Description 11/25/2015 Documentation [facility] [place] Medicine [address] [place] [address] Family Medicine, Physician [address] [place] [address] Social History Tobacco Use Types Packs/Day Years [...] on filedocumented in this encounter Care Teams Artificial Flowers Supervisor Relationship Specialty Start Date End Date Jacinto Chaudhary MD [address] [place] [address] [place] [phone] PCP - General 09/22/16 08/02/22 documented as of this encounter
--- OUTSIDE RECORDS SUMMARY | 2024-12-22 11:25 | XMS_ITS | Encounter Summary ---
Author Organization [facility] Address [address] [place] [address] Phone Care Team Providers Care Motion Picture Commentator Name Role Phone Jacinto Chaudhary MD Primary Care Provider [phone] Encounter Details Date Type Department Care Team (Late st Contact Info) Description 04/14/2016 Documentation [facility] Family Medicine [address] [place] [address] Family Medicine, Physician [address] [place] [address] Social History Tobacco Use Types Packs/Day Years [...] in this encounter Care Teams Motion Picture Commentator Relationship Specialty Start Date End Date Jacinto Chaudhary MD [address] [place] [address] [place] [id number] PCP - General 09/22/16 08/02/22 documented as of this encounter
--- OUTSIDE RECORDS SUMMARY | 2024-12-22 11:25 | XMS_ITS | Encounter Summary ---
Author Organization [facility] Address [address] [place] [address] Phone Care Team Providers Care Living Skills Advisor Name Role Phone Jacinto Chaudhary MD Primary Care Provider [phone] Encounter Details Date Type Department Care Team (Late st Contact Info) Description 04/26/2010 Documentation [facility] [place] Medicine [address] [place] [address] Family Medicine, Physician [address] [place] [address] Social History Tobacco Use Types Packs/Day Years [...] on filedocumented in this encounter Care Teams Living Skills Advisor Relationship Specialty Start Date End Date Jacinto Chaudhary MD [address] [place] [address] [place] [phone] PCP - General 09/22/16 08/02/22 documented as of this encounter
--- OUTSIDE RECORDS SUMMARY | 2024-12-22 11:25 | XMS_ITS | Encounter Summary ---
Author Organization [facility] Address [address] [place] [address] Phone Care Team Providers Care Building Maintenance Supervisor Name Role Phone Jacinto Chaudhary MD Primary Care Provider Encounter Details Date Type Department Care Team (Late st Contact Info) Description 02/27/2013 Documentation [facility] [place] [address] [place] [address] Family Medicine, Physician [address] [place] [address] Social History Tobacco Use Types Packs/Day Years [...] on filedocumented in this encounter Care Teams Building Maintenance Supervisor Relationship Specialty Start Date End Date Jacinto Chaudhary MD [address] [place] [address] [place] [phone] PCP - General 09/22/16 08/02/22 documented as of this encounter
--- OUTSIDE RECORDS SUMMARY | 2024-12-22 11:25 | XMS_ITS | Encounter Summary ---
Author Organization [facility] Address [address] [place] [address] Phone Care Team Providers Care Child Welfare Specialist Name Role Phone Jacinto Chaudhary MD Primary Care Provider [phone] Encounter Details Date Type Department Care Team (Late st Contact Info) Description 03/14/2012 Documentation [facility] Family Medicine [address] [place] [address] Family Medicine, Physician [address] [place] [address] Social History Tobacco Use Types Packs/Day Years [...] on filedocumented in this encounter Care Teams Child Welfare Specialist Relationship Specialty Start Date End Date Jacinto Chaudhary MD [address] [place] [address] [place] [phone] PCP - General 09/22/16 08/02/22 documented as of this encounter
--- OUTSIDE RECORDS SUMMARY | 2024-12-22 11:25 | XMS_ITS | Encounter Summary ---
Author Organization [facility] Address [address] [place] [address] Phone Care Team Providers Care Director Of Land Acquisition Name Role Phone Jacinto Chaudhary MD Primary Care Provider [phone] Encounter Details Date Type Department Care Team (Late st Contact Info) Description 04/04/2013 Documentation [facility] [place] [address] [place] [address] Family Medicine, Physician [address] [place] [address] Social History Tobacco Use Types Packs/Day Years [...] filedocumented in this encounter Care Teams Director Of Land Acquisition Relationship Specialty Start Date End Date Jacinto Chaudhary MD [address] [place] [address] [place] [phone] PCP - General 09/22/16 08/02/22 documented as of this encounter
--- OUTSIDE RECORDS SUMMARY | 2024-12-22 11:25 | XMS_ITS | Encounter Summary ---
Author Organization [facility] Address [address] [place] [address] Phone Care Team Providers Care Ampoule Inspector Name Role Phone Jacinto Chaudhary MD Primary Care Provider [phone] Encounter Details Date Type Department Care Team (Late st Contact Info) Description 11/10/2013 Documentation [facility] [place] Family Medicine [address] [place] [address] Family Medicine, Physician [address] [place] [address] Social History Tobacco Use Types Packs/Day Years [...] on filedocumented in this encounter Care Teams Ampoule Inspector Relationship Specialty Start Date End Date Jacinto Chaudhary MD [address] [place] [address] [place] [phone] PCP - General 09/22/16 08/02/22 documented as of this encounter
--- OUTSIDE RECORDS SUMMARY | 2024-12-22 11:25 | XMS_ITS | Encounter Summary ---
Author Organization [facility] Address [address] [place] [address] Phone Care Team Providers Care Cruise Agent Name Role Phone Jacinto Chaudhary MD Primary Care Provider [phone] Encounter Details Date Type Department Care Team (Late st Contact Info) Description 11/10/2013 Documentation [facility] [place] [address] [place] [address] Family Medicine, Physician [address] [place] [address] Social History Tobacco Use Types Packs/Day Years [...] on filedocumented in this encounter Care Teams Cruise Agent Relationship Specialty Start Date End Date Jacinto Chaudhary MD [address] [place] [address] [place] [id number] PCP - General 09/22/16 08/02/22 documented as of this encounter
--- OUTSIDE RECORDS SUMMARY | 2024-12-22 11:25 | XMS_ITS | Encounter Summary ---
Author Organization [facility] Address [address] [place] [address] Phone Care Team Providers Care Lan Specialist Name Role Phone Jacinto Chaudhary MD Primary Care Provider [phone] Encounter Details Date Type Department Care Team (Late st Contact Info) Description 04/09/2015 Documentation [facility] [place] Family Medicine [address] [place] [address] Family Medicine, Physician [address] [place] [address] Social History Tobacco Use Types Packs/Day Years [...] on filedocumented in this encounter Care Teams Lan Specialist Relationship Specialty Start Date End Date Jacinto Chaudhary MD [address] [place] [address] [place] [phone] PCP - General 09/22/16 08/02/22 documented as of this encounter
--- OUTSIDE RECORDS SUMMARY | 2024-12-22 11:25 | XMS_ITS | Encounter Summary ---
Author Organization [facility] Address [address] [place] [address] Phone Care Team Providers Care Early Childhood Assistant Name Role Phone Jacinto Chaudhary MD Primary Care Provider [phone] Encounter Details Date Type Department Care Team (Late st Contact Info) Description 04/14/2016 Documentation [facility] [place] Family Medicine [address] [place] [address] Family Medicine, Physician [address] [place] [address] Social History Tobacco Use Types Packs/Day Years [...] on filedocumented in this encounter Care Teams Early Childhood Assistant Relationship Specialty Start Date End Date Jacinto Chaudhary MD [address] [place] [address] [place] [phone] PCP - General 09/22/16 08/02/22 documented as of this encounter
--- OUTSIDE RECORDS SUMMARY | 2024-12-22 11:25 | XMS_ITS | Encounter Summary ---
Author Organization [facility] Address [address] [place] [address] Phone Care Team Providers Care Farm Machinery Mechanic Name Role Phone Jacinto Chaudhary MD Primary Care Provider [phone] Encounter Details Date Type Department Care Team (Late st Contact Info) Description 02/16/2011 Documentation [facility] [place] [address] [place] [address] Family Medicine, Physician [address] [place] [address] Social History Tobacco Use Types Packs/Day Years [...] on filedocumented in this encounter Care Teams Farm Machinery Mechanic Relationship Specialty Start Date End Date Jacinto Chaudhary MD [address] [place] [address] [place] [phone] PCP - General 09/22/16 08/02/22 documented as of this encounter
--- OUTSIDE RECORDS SUMMARY | 2024-12-22 11:25 | XMS_ITS | Encounter Summary ---
Author Organization [facility] Address [address] [place] [address] Phone Care Team Providers Care Peer Specialist Name Role Phone Jacinto Chaudhary MD Primary Care Provider [phone] Encounter Details Date Type Department Care Team (Late st Contact Info) Description 10/14/2013 Documentation [facility] Family Medicine [address] [place] [address] Family Medicine, Physician [address] [place] [address] Social History Tobacco Use Types Packs/Day Years [...] on filedocumented in this encounter Care Teams Peer Specialist Relationship Specialty Start Date End Date Jacinto Chaudhary MD [address] [place] [address] [place] [phone] PCP - General 09/22/16 08/02/22 documented as of this encounter
--- OUTSIDE RECORDS SUMMARY | 2024-12-22 11:25 | XMS_ITS | Encounter Summary ---
Author Organization [facility] Address [address] [place] [address] Phone Care Team Providers Care Cost Estimating Clerk Name Role Phone Jacinto Chaudhary MD Primary Care Provider [phone] Encounter Details Date Type Department Care Team (Late st Contact Info) Description 04/07/2014 Documentation [facility] [place] Family Medicine [address] [place] [address] Family Medicine, Physician [address] [place] [address] Social History Tobacco Use Types Packs/Day Years [...] on filedocumented in this encounter Care Teams Cost Estimating Clerk Relationship Specialty Start Date End Date Jacinto Chaudhary MD [address] [place] [address] [place] [id number] PCP - General 09/22/16 08/02/22 documented as of this encounter
--- OUTSIDE RECORDS SUMMARY | 2024-12-22 11:25 | XMS_ITS | Encounter Summary ---
Author Organization [facility] Address [address] [place] [address] Phone Care Team Providers Care Cooling Room Attendant Name Role Phone Jacinto Chaudhary MD Primary Care Provider [phone] Encounter Details Date Type Department Care Team (Late st Contact Info) Description 03/14/2012 Documentation [facility] [place] [address] [place] [address] Family Medicine, Physician [address] [place] [address] Social History Tobacco Use Types Packs/Day Years [...] on filedocumented in this encounter Care Teams Cooling Room Attendant Relationship Specialty Start Date End Date Jacinto Chaudhary MD [address] [place] [address] [place] [phone] PCP - General 09/22/16 08/02/22 documented as of this encounter
--- OUTSIDE RECORDS SUMMARY | 2024-12-22 11:25 | XMS_ITS | Encounter Summary ---
Author Organization [facility] Address [address] [place] [address] Phone Care Team Providers Care Hang Gliding Instructor Name Role Phone Jacinto Chaudhary MD Primary Care Provider [phone] Encounter Details Date Type Department Care Team (Late st Contact Info) Description 04/13/2016 Documentation [facility] [place] [address] [place] [address] Family Medicine, Physician [address] [place] [address] Social History Tobacco Use Types Packs/Day Years [...] on filedocumented in this encounter Care Teams Hang Gliding Instructor Relationship Specialty Start Date End Date Jacinto Chaudhary MD [address] [place] [address] [place] [phone] PCP - General 09/22/16 08/02/22 documented as of this encounter
--- OUTSIDE RECORDS SUMMARY | 2024-12-22 11:25 | XMS_ITS | Encounter Summary ---
Author Organization [facility] Address [address] [place] [address] Phone Care Team Providers Care Manager Epic Name Role Phone Jacinto Chaudhary MD Primary Care Provider [phone] Encounter Details Date Type Department Care Team (Late st Contact Info) Description 04/09/2015 Documentation [facility] [place] Family Medicine [address] [place] [address] Family Medicine, Physician [address] [place] [address] Social History Tobacco Use Types Packs/Day Years [...] filedocumented in this encounter Care Teams Manager Epic Relationship Specialty Start Date End Date Jacinto Chaudhary MD [address] [place] [address] [place] [phone] PCP - General 09/22/16 08/02/22 documented as of this encounter
--- OUTSIDE RECORDS SUMMARY | 2024-12-22 11:25 | XMS_ITS | Encounter Summary ---
Author Organization [facility] Address [address] [place] [address] Phone Care Team Providers Care Test Center Administrator Name Role Phone Jacinto Chaudhary MD Primary Care Provider [phone] Encounter Details Date Type Department Care Team (Late st Contact Info) Description 05/09/2013 Documentation [facility] [place] [address] [place] [address] Family Medicine, Physician [address] [place] [address] Social History Tobacco Use Types Packs/Day Years [...] filedocumented in this encounter Care Teams Test Center Administrator Relationship Specialty Start Date End Date Jacinto Chaudhary MD [address] [place] [address] [place] [phone] PCP - General 09/22/16 08/02/22 documented as of this encounter
--- OUTSIDE RECORDS SUMMARY | 2024-12-22 11:25 | XMS_ITS | Clinical Summary ---
Author Organization [facility] Address [address] [place] [address] Phone Care Team Providers Care Control Integration Engineer Name Role Phone Unavailable Primary Care Provider [...]
--- OUTSIDE RECORDS SUMMARY | 2024-12-22 11:25 | XMS_ITS | Encounter Summary ---
Author Organization [facility] Address [address] [place] [address] Phone Care Team Providers Care Back Roll Lathe Operator Name Role Phone Jacinto Chaudhary MD Primary Care Provider [phone] Encounter Details Date Type Department Care Team (Late st Contact Info) Description 02/27/2013 Documentation [facility] [place] Family Medicine [address] [place] [address] Family Medicine, Physician [address] [place] [address] Social History Tobacco Use Types Packs/Day Years [...] on filedocumented in this encounter Care Teams Back Roll Lathe Operator Relationship Specialty Start Date End Date Jacinto Chaudhary MD [address] [place] [address] [place] [phone] PCP - General 09/22/16 08/02/22 documented as of this encounter
--- OUTSIDE RECORDS SUMMARY | 2024-12-22 11:25 | XMS_ITS | Encounter Summary ---
Author Organization [facility] Address [address] [place] [address] Phone Care Team Providers Care [facility] Shift Lead Name Role Phone Jacinto Chaudhary MD Primary Care Provider [phone] Encounter Details Date Type Department Care Team (Late st Contact Info) Description 08/19/2010 Documentation [facility] [place] [address] [place] [address] Family Medicine, Physician [address] [place] [address] Social History Tobacco Use Types Packs/Day Years [...] on filedocumented in this encounter Care Teams Veterinary [facility] Shift Lead Relationship Specialty Start Date End Date Jacinto Chaudhary MD [address] [place] [address] [place] [phone] PCP - General 09/22/16 08/02/22 documented as of this encounter
--- OUTSIDE RECORDS SUMMARY | 2024-12-22 11:25 | XMS_ITS | Encounter Summary ---
Author Organization [facility] Address [address] [place] [address] Phone Care Team Providers Care Inverted Block Operator Name Role Phone Jacinto Chaudhary MD Primary Care Provider [phone] Encounter Details Date Type Department Care Team (Late st Contact Info) Description 04/07/2014 Documentation [facility] [place] [address] [place] [address] Family Medicine, Physician [address] [place] [address] Social History Tobacco Use Types Packs/Day Years [...] on filedocumented in this encounter Care Teams Inverted Block Operator Relationship Specialty Start Date End Date Jacinto Chaudhary MD [address] [place] [address] [place] [phone] PCP - General 09/22/16 08/02/22 documented as of this encounter
--- OUTSIDE RECORDS SUMMARY | 2024-12-22 11:25 | XMS_ITS | Encounter Summary ---
Author Organization [facility] Address [address] [place] [address] Phone Care Team Providers Care Bridal Service Sales And Management Name Role Phone Jacinto Chaudhary MD Primary Care Provider [phone] Encounter Details Date Type Department Care Team (Late st Contact Info) Description 04/04/2013 Documentation [facility] [place] Family Medicine [address] [place] [address] Family Medicine, Physician [address] [place] [address] Social History Tobacco Use Types Packs/Day Years [...] on filedocumented in this encounter Care Teams Bridal Service Sales And Management Relationship Specialty Start Date End Date Jacinto Chaudhary MD [address] [place] [address] [place] [phone] PCP - General 09/22/16 08/02/22 documented as of this encounter
--- OUTSIDE RECORDS SUMMARY | 2024-12-22 11:25 | XMS_ITS | Encounter Summary ---
Author Organization [facility] Address [address] [place] [address] Phone Care Team Providers Care Vulcanizing Machine Operator Name Role Phone Jacinto Chaudhary MD Primary Care Provider [phone] Encounter Details Date Type Department Care Team (Late st Contact Info) Description 04/09/2015 Documentation [facility] [place] Family Medicine [address] [place] [address] Family Medicine, Physician [address] [place] [address] Social History Tobacco Use Types Packs/Day Years [...] on filedocumented in this encounter Care Teams Vulcanizing Machine Operator Relationship Specialty Start Date End Date Jacinto Chaudhary MD [address] [place] [address] [place] [phone] PCP - General 09/22/16 08/02/22 documented as of this encounter
--- OUTSIDE RECORDS SUMMARY | 2024-12-22 11:25 | XMS_ITS | Encounter Summary ---
Author Organization [facility] Address [address] [place] [address] Phone Care Team Providers Care Commercial Estimator Name Role Phone Jacinto Chaudhary MD Primary Care Provider [phone] Encounter Details Date Type Department Care Team (Late st Contact Info) Description 09/28/2016 Conversion Encounter [facility] [place] [address] [place] [address] Social History Tobacco Use Types Packs/Day Years [...] on filedocumented in this encounter Care Teams Commercial Estimator Relationship Specialty Start Date End Date Jacinto Chaudhary MD [address] [facility] [place] [address] PCP - General 09/22/16 08/02/22 documented as of this encounter
== END 2024-12-22 09:58 | disposition home or self-care (01) ==
LOC: HO.HMGAL 09:57
PROVIDERS: PCP Physician Assistant; Visit Provider Registered Nurse Emergency
DX: J30.89 Other allergic rhinitis (principal)
CPT/HCPCS: 95117; 95165

== ENCOUNTER 2024-12-29 10:04 | Outpatient (AMB) | payer OTHER, SELFPAY ==
--- OUTSIDE RECORDS SUMMARY | 2024-12-29 20:48 | XMS_ITS | Encounter Summary ---
Author Organization [facility] Address [address] [place] [address] Phone Care Team Providers Care Airway Controller Name Role Phone Jacinto Chaudhary MD Primary Care Provider [phone] Encounter Details Date Type Department Care Team (Late st Contact Info) Description 11/25/2015 Documentation [facility] [place] Family Medicine [address] [place] [address] Family Medicine, Physician [address] [place] [address] Social History Tobacco Use Types Packs/Day Years [...] on filedocumented in this encounter Care Teams Airway Controller Relationship Specialty Start Date End Date Jacinto Chaudhary MD [address] [place] [address] [place] [id number] PCP - General 09/22/16 08/02/22 documented as of this encounter
--- OUTSIDE RECORDS SUMMARY | 2024-12-29 20:48 | XMS_ITS | Encounter Summary ---
Author Organization [facility] Address [address] [place] [address] Phone Care Team Providers Care Motorcycle Builder Name Role Phone Jacinto Chaudhary MD Primary Care Provider [phone] Encounter Details Date Type Department Care Team (Late st Contact Info) Description 02/16/2011 Documentation [facility] [place] Family Medicine [address] [place] [address] Family Medicine, Physician [address] [place] [address] Social History Tobacco Use Types Packs/Day Years [...] on filedocumented in this encounter Care Teams Motorcycle Builder Relationship Specialty Start Date End Date Jacinto Chaudhary MD [address] [place] [address] [place] [phone] PCP - General 09/22/16 08/02/22 documented as of this encounter
--- OUTSIDE RECORDS SUMMARY | 2024-12-29 20:49 | XMS_ITS | Encounter Summary ---
Author Organization [facility] Address [address] [place] [address] Phone Care Team Providers Care Dredge Operator Supervisor Name Role Phone Jacinto Chaudhary MD Primary Care Provider [phone] Encounter Details Date Type Department Care Team (Late st Contact Info) Description 08/19/2010 Documentation [facility] [place] Family Medicine [address] [place] [address] Family Medicine, Physician [address] [place] [address] Social History Tobacco Use Types Packs/Day Years [...] on filedocumented in this encounter Care Teams Dredge Operator Supervisor Relationship Specialty Start Date End Date Jacinto Chaudhary MD [address] [place] [address] [place] [id number] PCP - General 09/22/16 08/02/22 documented as of this encounter
--- OUTSIDE RECORDS SUMMARY | 2024-12-29 20:49 | XMS_ITS | Encounter Summary ---
Author Organization [facility] Address [address] [place] [address] Phone Care Team Providers Care Aitchbone Breaker Name Role Phone Jacinto Chaudhary MD Primary Care Provider [phone] Encounter Details Date Type Department Care Team (Late st Contact Info) Description 10/14/2013 Documentation [facility] [place] Family Medicine [address] [place] [address] Family Medicine, Physician [address] [place] [address] Social History Tobacco Use Types Packs/Day Years [...] on filedocumented in this encounter Care Teams Aitchbone Breaker Relationship Specialty Start Date End Date Jacinto Chaudhary MD [address] [place] [address] [place] [phone] PCP - General 09/22/16 08/02/22 documented as of this encounter
--- OUTSIDE RECORDS SUMMARY | 2024-12-29 20:49 | XMS_ITS | Encounter Summary ---
Author Organization [facility] Address [address] [place] [address] Phone Care Team Providers Care Deli Associate Name Role Phone Jacinto Chaudhary MD Primary Care Provider [phone] Encounter Details Date Type Department Care Team (Late st Contact Info) Description 05/09/2013 Documentation [facility] [place] Family Medicine [address] [place] [address] Family Medicine, Physician [address] [place] [address] Social History Tobacco Use Types Packs/Day Years [...] on filedocumented in this encounter Care Teams Deli Associate Relationship Specialty Start Date End Date Jacinto Chaudhary MD [address] [place] [address] [place] [phone] PCP - General 09/22/16 08/02/22 documented as of this encounter
--- OUTSIDE RECORDS SUMMARY | 2024-12-29 20:49 | XMS_ITS | Encounter Summary ---
Author Organization [facility] Address [address] [place] [address] Phone Care Team Providers Care Supervisor Assembly Stock Name Role Phone Jacinto Chaudhary MD Primary Care Provider [phone] Encounter Details Date Type Department Care Team (Late st Contact Info) Description 03/14/[address] [facility] [place] Family Medicine [address] [place] [address] Family Medicine, Physician [address] [place] [address] Social History Tobacco Use Types Packs/Day Years [...] filedocumented in this encounter Care Teams Supervisor Assembly Stock Relationship Specialty Start Date End Date Jacinto Chaudhary MD [address] [place] [address] [place] [phone] PCP - General 09/22/16 08/02/22 documented as of this encounter
--- OUTSIDE RECORDS SUMMARY | 2024-12-29 20:49 | XMS_ITS | Clinical Summary ---
Author Organization [facility] Address [address] [place] [address] Phone Care Team Providers Care Cissp Name Role Phone Unavailable Primary Care Provider [...]
--- OUTSIDE RECORDS SUMMARY | 2024-12-29 20:49 | XMS_ITS | Encounter Summary ---
Author Organization [facility] Address [address] [place] [address] Phone Care Team Providers Care Airplane Patroller Name Role Phone Jacinto Chaudhary MD Primary Care Provider [phone] Encounter Details Date Type Department Care Team (Late st Contact Info) Description 02/16/2011 Documentation [facility] [place] Family Medicine [address] [place] [address] Family Medicine, Physician [address] [place] [address] Social History Tobacco Use Types Packs/Day Years [...] on filedocumented in this encounter Care Teams Airplane Patroller Relationship Specialty Start Date End Date Jacinto Chaudhary MD [address] [place] [address] [place] [phone] PCP - General 09/22/16 08/02/22 documented as of this encounter
--- OUTSIDE RECORDS SUMMARY | 2024-12-29 20:50 | XMS_ITS | Encounter Summary ---
Author Organization [facility] Address [address] [place] [address] Phone Care Team Providers Care Warehouse Guard Name Role Phone Jacinto Chaudhary MD Primary Care Provider [phone] Encounter Details Date Type Department Care Team (Late st Contact Info) Description 04/14/2016 Documentation [facility] [place] Family Medicine [address] [place] [address] Family Medicine, Physician [address] [place] [address] Social History Tobacco Use Types Packs/Day Years [...] on filedocumented in this encounter Care Teams Warehouse Guard Relationship Specialty Start Date End Date Jacinto Chaudhary MD [address] [place] [address] [place] [id number] PCP - General 09/22/16 08/02/22 documented as of this encounter
--- OUTSIDE RECORDS SUMMARY | 2024-12-29 20:50 | XMS_ITS | Encounter Summary ---
Author Organization [facility] Address [address] [place] [address] Phone Care Team Providers Care Professor Of Practice Name Role Phone Jacinto Chaudhary MD Primary Care Provider [phone] Encounter Details Date Type Department Care Team (Late st Contact Info) Description 11/10/2013 Documentation [facility] [place] Family Medicine [address] [place] [address] Family Medicine, Physician [address] [place] [address] Social History Tobacco Use Types Packs/Day Years [...] on filedocumented in this encounter Care Teams Professor Of Practice Relationship Specialty Start Date End Date Jacinto Chaudhary MD [address] [place] [address] [place] [phone] PCP - General 09/22/16 08/02/22 documented as of this encounter
--- OUTSIDE RECORDS SUMMARY | 2024-12-29 20:50 | XMS_ITS | Encounter Summary ---
Author Organization [facility] Address [address] [place] [address] Phone Care Team Providers Care Coverstitch Machine Operator Name Role Phone Jacinto Chaudhary MD Primary Care Provider [phone] Encounter Details Date Type Department Care Team (Late st Contact Info) Description 09/28/2016 Conversion Encounter [facility] [place] [address] [place] [address] Social History Tobacco Use Types Packs/Day Years [...] on filedocumented in this encounter Care Teams Coverstitch Machine Operator Relationship Specialty Start Date End Date Jacinto Chaudhary MD [address] [facility] [place] [address] PCP - General 09/22/16 08/02/22 documented as of this encounter
--- OUTSIDE RECORDS SUMMARY | 2024-12-29 20:51 | XMS_ITS | Encounter Summary ---
Author Organization [facility] Address [address] [place] [address] Phone Care Team Providers Care Male Infertility Specialist Name Role Phone Jacinto Chaudhary MD Primary Care Provider [phone] Encounter Details Date Type Department Care Team (Late st Contact Info) Description 03/14/2012 Documentation [facility] [place] Family Medicine [address] [place] [address] Family Medicine, Physician [address] [place] [address] Social History Tobacco Use Types Packs/Day Years [...] on filedocumented in this encounter Care Teams Male Infertility Specialist Relationship Specialty Start Date End Date Jacinto Chaudhary MD [address] [place] [address] [place] [phone] PCP - General 09/22/16 08/02/22 documented as of this encounter
--- OUTSIDE RECORDS SUMMARY | 2024-12-29 20:51 | XMS_ITS | Encounter Summary ---
Author Organization [facility] Address [address] [place] [address] Phone Care Team Providers Care Carbon Accountant Name Role Phone Jacinto Chaudhary MD Primary Care Provider [phone] Encounter Details Date Type Department Care Team (Late st Contact Info) Description 11/10/2013 Documentation [facility] [place] [address] [place] [address] Family Medicine, Physician [address] [place] [address] Social History Tobacco Use Types Packs/Day Years [...] filedocumented in this encounter Care Teams Carbon Accountant Relationship Specialty Start Date End Date Jacinto Chaudhary MD [address] [place] [address] [place] [phone] PCP - General 09/22/16 08/02/22 documented as of this encounter
--- OUTSIDE RECORDS SUMMARY | 2024-12-29 20:51 | XMS_ITS | Encounter Summary ---
Author Organization [facility] Address [address] [place] [address] Phone Care Team Providers Care Room Service Food Service Attendant Name Role Phone Jacinto Chaudhary MD Primary Care Provider [phone] Encounter Details Date Type Department Care Team (Late st Contact Info) Description 04/13/2016 Documentation [facility] [place] [address] [place] [address] Family Medicine, Physician [address] [place] [address] Social History Tobacco Use Types Packs/Day Years [...] on filedocumented in this encounter Care Teams Room Service Food Service Attendant Relationship Specialty Start Date End Date Jacinto Chaudhary MD [address] [place] [address] [place] [phone] PCP - General 09/22/16 08/02/22 documented as of this encounter
--- OUTSIDE RECORDS SUMMARY | 2024-12-29 20:51 | XMS_ITS | Encounter Summary ---
Author Organization [facility] Address [address] [place] [address] Phone Care Team Providers Care Bathhouse Keeper Name Role Phone Jacinto Chaudhary MD Primary Care Provider [phone] Encounter Details Date Type Department Care Team (Late st Contact Info) Description 04/14/2016 Documentation [facility] [place] Family Medicine [address] [place] [address] Family Medicine, Physician [address] [place] [address] Social History Tobacco Use Types Packs/Day Years [...] on filedocumented in this encounter Care Teams Bathhouse Keeper Relationship Specialty Start Date End Date Jacinto Chaudhary MD [address] [place] [address] [place] [phone] PCP - General 09/22/16 08/02/22 documented as of this encounter
--- OUTSIDE RECORDS SUMMARY | 2024-12-29 20:52 | XMS_ITS | Encounter Summary ---
Author Organization [facility] Address [address] [place] [address] Phone Care Team Providers Care Paving Contractor Name Role Phone Jacinto Chaudhary MD Primary Care Provider [phone] Encounter Details Date Type Department Care Team (Late st Contact Info) Description 02/27/2013 Documentation [facility] [place] Family Medicine [address] [place] [address] Family Medicine, Physician [address] [place] [address] Social History Tobacco Use Types Packs/Day Years [...] on filedocumented in this encounter Care Teams Paving Contractor Relationship Specialty Start Date End Date Jacinto Chaudhary MD [address] [place] [address] [place] [phone] PCP - General 09/22/16 08/02/22 documented as of this encounter
--- OUTSIDE RECORDS SUMMARY | 2024-12-29 20:52 | XMS_ITS | Encounter Summary ---
Author Organization [facility] Address [address] [place] [address] Phone Care Team Providers Care Chemical Technician Name Role Phone Jacinto Chaudhary MD Primary Care Provider Encounter Details Date Type Department Care Team (Late st Contact Info) Description 04/09/2015 Documentation [facility] [place] Family Medicine [address] [place] [address] Family Medicine, Physician [address] [place] [address] Social History Tobacco Use Types Packs/Day Years [...] on filedocumented in this encounter Care Teams Chemical Technician Relationship Specialty Start Date End Date Jacinto Chaudhary MD [address] [place] [address] [place] [phone] PCP - General 09/22/16 08/02/22 documented as of this encounter
--- OUTSIDE RECORDS SUMMARY | 2024-12-29 20:52 | XMS_ITS | Encounter Summary ---
Author Organization [facility] Address [address] [place] [address] Phone Care Team Providers Care Bill Peddler Name Role Phone Jacinto Chaudhary MD Primary Care Provider [phone] Encounter Details Date Type Department Care Team (Late st Contact Info) Description 04/07/2014 Documentation [facility] [place] Family Medicine [address] [place] [address] Family Medicine, Physician [address] [place] [address] Social History Tobacco Use Types Packs/Day Years [...] on filedocumented in this encounter Care Teams Bill Peddler Relationship Specialty Start Date End Date Jacinto Chaudhary MD [address] [place] [address] [place] [phone] PCP - General 09/22/16 08/02/22 documented as of this encounter
--- OUTSIDE RECORDS SUMMARY | 2024-12-29 20:52 | XMS_ITS | Encounter Summary ---
Author Organization [facility] Address [address] [place] [address] Phone Care Team Providers Care Weight Reducing Technician Name Role Phone Jacinto Chaudhary MD Primary Care Provider Encounter Details Date Type Department Care Team (Late st Contact Info) Description 04/09/2015 Documentation [facility] [place] [address] [place] [address] Family Medicine, Physician [address] [place] [address] Social History Tobacco Use Types Packs/Day Years [...] on filedocumented in this encounter Care Teams Weight Reducing Technician Relationship Specialty Start Date End Date Jacinto Chaudhary MD [address] [place] [address] [place] [phone] PCP - General 09/22/16 08/02/22 documented as of this encounter
--- OUTSIDE RECORDS SUMMARY | 2024-12-29 20:52 | XMS_ITS | Encounter Summary ---
Author Organization [facility] Address [address] [place] [address] Phone Care Team Providers Care Distribution Dispatcher Name Role Phone Jacinto Chaudhary MD Primary Care Provider [phone] Encounter Details Date Type Department Care Team (Late st Contact Info) Description 04/07/2014 Documentation [facility] [place] [address] [place] [address] Family Medicine, Physician [address] [place] [address] Social History Tobacco Use Types Packs/Day Years [...] on filedocumented in this encounter Care Teams Distribution Dispatcher Relationship Specialty Start Date End Date Jacinto Chaudhary MD [address] [place] [address] [place] [phone] PCP - General 09/22/16 08/02/22 documented as of this encounter
--- OUTSIDE RECORDS SUMMARY | 2024-12-29 20:52 | XMS_ITS | Encounter Summary ---
Author Organization [facility] Address [address] [place] [address] Phone Care Team Providers Care Staff Counselor Name Role Phone Jacinto Chaudhary MD Primary Care Provider [phone] Encounter Details Date Type Department Care Team (Late st Contact Info) Description 04/04/2013 Documentation [facility] [place] [address] [place] [address] Family Medicine, Physician [address] [place] [address] Social History Tobacco Use Types Packs/Day Years [...] on filedocumented in this encounter Care Teams Staff Counselor Relationship Specialty Start Date End Date Jacinto Chaudhary MD [address] [place] [address] [place] [phone] PCP - General 09/22/16 08/02/22 documented as of this encounter
--- OUTSIDE RECORDS SUMMARY | 2024-12-29 20:53 | XMS_ITS | Encounter Summary ---
Author Organization [facility] Address [address] [place] [address] Phone Care Team Providers Care Helicopter Mechanic Name Role Phone Jacinto Chaudhary MD Primary Care Provider [phone] Encounter Details Date Type Department Care Team (Late st Contact Info) Description 02/27/2013 Documentation [facility] [place] Family Medicine [address] [place] [address] Family Medicine, Physician [address] [place] [address] Social History Tobacco Use Types Packs/Day Years [...] on filedocumented in this encounter Care Teams Helicopter Mechanic Relationship Specialty Start Date End Date Jacinto Chaudhary MD [address] [place] [address] [place] [phone] PCP - General 09/22/16 08/02/22 documented as of this encounter
--- OUTSIDE RECORDS SUMMARY | 2024-12-29 20:53 | XMS_ITS | Encounter Summary ---
Author Organization [facility] Address [address] [place] [address] Phone Care Team Providers Care Paraffiner Name Role Phone Jacinto Chaudhary MD Primary Care Provider [phone] Encounter Details Date Type Department Care Team (Late st Contact Info) Description 04/09/2015 Documentation [facility] [place] [address] [place] [address] Family Medicine, Physician [address] [place] [address] Social History Tobacco Use Types Packs/Day Years [...] on filedocumented in this encounter Care Teams Paraffiner Relationship Specialty Start Date End Date Jacinto Chaudhary MD [address] [place] [address] [place] [id number] PCP - General 09/22/16 08/02/22 documented as of this encounter
--- OUTSIDE RECORDS SUMMARY | 2024-12-29 20:53 | XMS_ITS | Encounter Summary ---
Author Organization [facility] Address [address] [place] [address] Phone Care Team Providers Care Usability Engineer Name Role Phone Jacinto Chaudhary MD Primary Care Provider [phone] Encounter Details Date Type Department Care Team (Late st Contact Info) Description 04/26/2010 Documentation [facility] [place] Family Medicine [address] [place] [address] Family Medicine, Physician [address] [place] [address] Social History Tobacco Use Types Packs/Day Years [...] on filedocumented in this encounter Care Teams Usability Engineer Relationship Specialty Start Date End Date Jacinto Chaudhary MD [address] [place] [address] [place] [phone] PCP - General 09/22/16 08/02/22 documented as of this encounter
--- OUTSIDE RECORDS SUMMARY | 2024-12-29 20:53 | XMS_ITS | Encounter Summary ---
Author Organization [facility] Address [address] [place] [address] Phone Care Team Providers Care Varnish Cooker Name Role Phone Jacinto Chaudhary MD Primary Care Provider [phone] Encounter Details Date Type Department Care Team (Late st Contact Info) Description 04/04/2013 Documentation [facility] [place] [address] [place] [address] Family Medicine, Physician [address] [place] [address] Social History Tobacco Use Types Packs/Day Years [...] on filedocumented in this encounter Care Teams Varnish Cooker Relationship Specialty Start Date End Date Jacinto Chaudhary MD [address] [place] [address] [place] [phone] PCP - General 09/22/16 08/02/22 documented as of this encounter
== END 2024-12-29 10:04 | disposition home or self-care (01) ==
LOC: HO.HMGAL 10:04
PROVIDERS: PCP Physician Assistant; Visit Provider Registered Nurse Emergency
DX: J30.89 Other allergic rhinitis (principal)
CPT/HCPCS: 95117; 95165

== ENCOUNTER 2025-01-05 09:30 | Outpatient (AMB) | payer OTHER, SELFPAY ==
--- OUTSIDE RECORDS SUMMARY | 2025-01-05 10:54 | XMS_ITS | Clinical Summary ---
Author Organization [facility] Address [address] [place] [address] Phone Care Team Providers Care Green Chain Offbearer Name Role Phone Unavailable Primary Care Provider [...]
--- OUTSIDE RECORDS SUMMARY | 2025-01-05 10:54 | XMS_ITS | Encounter Summary ---
Author Organization [facility] Address [address] [place] [address] Phone Care Team Providers Care Supervisor Carbon Electrodes Name Role Phone Jacinto Chaudhary MD Primary Care Provider [phone] Encounter Details Date Type Department Care Team (Late st Contact Info) Description 02/16/2011 Documentation [facility] [place] [address] [place] [address] Family Medicine, Physician [address] [place] [address] Social History Tobacco Use Types Packs/Day Years [...] filedocumented in this encounter Care Teams Supervisor Carbon Electrodes Relationship Specialty Start Date End Date Jacinto Chaudhary MD [address] [place] [address] [place] [phone] PCP - General 09/22/16 08/02/22 documented as of this encounter
--- OUTSIDE RECORDS SUMMARY | 2025-01-05 10:54 | XMS_ITS | Encounter Summary ---
Author Organization [facility] Address [address] [place] [address] Phone Care Team Providers Care Rug Drying Machine Operator Name Role Phone Jacinto Chaudhary MD Primary Care Provider [phone] Encounter Details Date Type Department Care Team (Late st Contact Info) Description 08/19/2010 Documentation [facility] [place] Family Medicine [address] [place] [address] Family Medicine, Physician [address] [place] [address] Social History Tobacco Use Types Packs/Day Years [...] filedocumented in this encounter Care Teams Rug Drying Machine Operator Relationship Specialty Start Date End Date Jacinto Chaudhary MD [address] [place] [address] [place] [phone] PCP - General 09/22/16 08/02/22 documented as of this encounter
--- OUTSIDE RECORDS SUMMARY | 2025-01-05 10:54 | XMS_ITS | Encounter Summary ---
Author Organization [facility] Address [address] [place] [address] Phone Care Team Providers Care Railroad Switchman Name Role Phone Jacinto Chaudhary MD Primary Care Provider [phone] Encounter Details Date Type Department Care Team (Late st Contact Info) Description 04/14/2016 Documentation [facility] [place] Medicine [address] [place] [address] Family Medicine, Physician [address] [place] [address] Social History Tobacco Use Types Packs/Day Years [...] on filedocumented in this encounter Care Teams Railroad Switchman Relationship Specialty Start Date End Date Jacinto Chaudhary MD [address] [place] [address] [place] [phone] PCP - General 09/22/16 08/02/22 documented as of this encounter
--- OUTSIDE RECORDS SUMMARY | 2025-01-05 10:54 | XMS_ITS | Encounter Summary ---
Author Organization [facility] Address [address] [place] [address] Phone Care Team Providers Care Area Operations Director Name Role Phone Jacnito Chaudhary MD Primary Care Provider [phone] Encounter Details Date Type Department Care Team (Late st Contact Info) Description 05/09/2013 Documentation [facility] [place] Family Medicine [address] [place] [address] Family Medicine, Physician [address] [place] [address] Social History Tobacco Use Types Packs/Day Years [...] on filedocumented in this encounter Care Teams Area Operations Director Relationship Specialty Start Date End Date Jacinto Chaudhary MD [address] [place] [address] [place] [phone] PCP - General 09/22/16 08/02/22 documented as of this encounter
--- OUTSIDE RECORDS SUMMARY | 2025-01-05 10:54 | XMS_ITS | Encounter Summary ---
Author Organization [facility] Address [address] [place] [address] Phone Care Team Providers Care Cnc Mill Programmer Name Role Phone Jacinto Chaudhary MD Primary Care Provider Encounter Details Date Type Department Care Team (Late st Contact Info) Description 10/14/2013 Documentation [facility] [place] Family Medicine [address] [place] [address] Family Medicine, Physician [address] [place] [address] Social History Tobacco Use Types Packs/Day Years [...] filedocumented in this encounter Care Teams Cnc Mill Programmer Relationship Specialty Start Date End Date Jacinto Chaudhary MD [address] [place] [address] [place] [phone] PCP - General 09/22/16 08/02/22 documented as of this encounter
--- OUTSIDE RECORDS SUMMARY | 2025-01-05 10:54 | XMS_ITS | Encounter Summary ---
Author Organization [facility] Address [address] [place] [address] Phone Care Team Providers Care Boat Diesel Motor Mechanic Name Role Phone Jacinto Chaudhary MD Primary Care Provider [phone] Encounter Details Date Type Department Care Team (Late st Contact Info) Description 11/25/2015 Documentation [facility] [place] [address] [place] [address] Family Medicine, Physician [address] [place] [address] Social History Tobacco Use Types Packs/Day Years [...] on filedocumented in this encounter Care Teams Boat Diesel Motor Mechanic Relationship Specialty Start Date End Date Jacinto Chaudhary MD [address] [place] [address] [place] [phone] PCP - General 09/22/16 08/02/22 documented as of this encounter
--- OUTSIDE RECORDS SUMMARY | 2025-01-05 10:54 | XMS_ITS | Encounter Summary ---
Author Organization [facility] Address [address] [place] [address] Phone Care Team Providers Care Cooker Sulfite Name Role Phone Jacinto Chaudhary MD Primary Care Provider [phone] Encounter Details Date Type Department Care Team (Late st Contact Info) Description 02/16/2011 Documentation [facility] [place] Family Medicine [address] [place] [address] Family Medicine, Physician [address] [place] [address] Social History Tobacco Use Types Packs/Day Years [...] on filedocumented in this encounter Care Teams Cooker Sulfite Relationship Specialty Start Date End Date Jacinto Chaudhary MD [address] [place] [address] [place] [phone] PCP - General 09/22/16 08/02/22 documented as of this encounter
--- OUTSIDE RECORDS SUMMARY | 2025-01-05 10:54 | XMS_ITS | Encounter Summary ---
Author Organization [facility] Address [address] [place] [address] Phone Care Team Providers Care Hand Engraver Name Role Phone Jacinto Chaudhary MD Primary Care Provider [phone] Encounter Details Date Type Department Care Team (Late st Contact Info) Description 09/28/2016 Conversion Encounter [facility] [place] [address] [place] [address] Social History Tobacco Use Types Packs/Day Years [...] filedocumented in this encounter Care Teams Hand Engraver Relationship Specialty Start Date End Date Jacinto Chaudhary MD [address] [place] [address] PCP - General 09/22/16 08/02/22 documented as of this encounter
--- OUTSIDE RECORDS SUMMARY | 2025-01-05 10:54 | XMS_ITS | Encounter Summary ---
Author Organization [facility] Address [address] [place] [address] Phone Care Team Providers Care Business Analysis Analyst Name Role Phone Jacinto Chaudhary MD Primary Care Provider [phone] Encounter Details Date Type Department Care Team (Late st Contact Info) Description 11/10/2013 Documentation [facility] [place] [address] [place] [address] Family Medicine, Physician [address] [place] [address] Social History Tobacco Use Types Packs/Day Years [...] filedocumented in this encounter Care Teams Business Analysis Analyst Relationship Specialty Start Date End Date Jacinto Chaudhary MD [address] [place] [address] [place] [phone] PCP - General 09/22/16 08/02/22 documented as of this encounter
--- OUTSIDE RECORDS SUMMARY | 2025-01-05 10:54 | XMS_ITS | Encounter Summary ---
Author Organization [facility] Address [address] [place] [address] Phone Care Team Providers Care Club Manager Name Role Phone Jacinto Chaudhary MD Primary Care Provider Encounter Details Date Type Department Care Team (Late st Contact Info) Description 03/14/2012 Documentation [facility] [place] Family Medicine [address] [place] [address] Family Medicine, Physician [address] [place] [address] Social History Tobacco Use Types Packs/Day Years [...] on filedocumented in this encounter Care Teams Club Manager Relationship Specialty Start Date End Date Jacinto Chaudhary MD [address] [place] [address] [place] [phone] PCP - General 09/22/16 08/02/22 documented as of this encounter
--- OUTSIDE RECORDS SUMMARY | 2025-01-05 10:55 | XMS_ITS | Encounter Summary ---
Author Organization [facility] Address [address] [place] [address] Phone Care Team Providers Care Threading Machine Feeder Automatic Name Role Phone Jacinto Chaudhary MD Primary Care Provider [phone] Encounter Details Date Type Department Care Team (Late st Contact Info) Description 04/09/2015 Documentation [facility] [place] [address] [place] [address] Family Medicine, Physician [address] [place] [address] Social History Tobacco Use Types Packs/Day Years [...] on filedocumented in this encounter Care Teams Threading Machine Feeder Automatic Relationship Specialty Start Date End Date Jacinto Chaudhary MD [address] [place] [address] [place] [id number] PCP - General 09/22/16 08/02/22 documented as of this encounter
--- OUTSIDE RECORDS SUMMARY | 2025-01-05 10:55 | XMS_ITS | Encounter Summary ---
Author Organization [facility] Address [address] [place] [address] Phone Care Team Providers Care Resourcing Advisor Name Role Phone Jacinto Chaudhary MD Primary Care Provider [phone] Encounter Details Date Type Department Care Team (Late st Contact Info) Description 04/14/2016 Documentation [facility] [place] Medicine [address] [place] [address] Family Medicine, Physician [address] [place] [address] Social History Tobacco Use Types Packs/Day Years [...] on filedocumented in this encounter Care Teams Resourcing Advisor Relationship Specialty Start Date End Date Jacinto Chaudhary MD [address] [place] [address] [place] [phone] PCP - General 09/22/16 08/02/22 documented as of this encounter
--- OUTSIDE RECORDS SUMMARY | 2025-01-05 10:55 | XMS_ITS | Encounter Summary ---
Author Organization [facility] Address [address] [place] [address] Phone Care Team Providers Care President Educational Institution Name Role Phone Jacinto Chaudhary MD Primary Care Provider [phone] Encounter Details Date Type Department Care Team (Late st Contact Info) Description 02/27/2013 Documentation [facility] [place] Family Medicine [address] [place] [address] Family Medicine, Physician [address] [place] [address] Social History Tobacco Use Types Packs/Day Years [...] on filedocumented in this encounter Care Teams President Educational Institution Relationship Specialty Start Date End Date Jacinto Chaudhary MD [address] [place] [address] [place] [phone] PCP - General 09/22/16 08/02/22 documented as of this encounter
--- OUTSIDE RECORDS SUMMARY | 2025-01-05 10:55 | XMS_ITS | Encounter Summary ---
Author Organization [facility] Address [address] [place] [address]992 Phone Care Team Providers Care First Line Production Supervisor Name Role Phone Jacinto Chaudhary MD Primary Care Provider [phone] Encounter Details Date Type Department Care Team (Late st Contact Info) Description 04/26/2010 Documentation [facility] [place] Family [place] [address] [place] [address] Family Medicine, Physician [address] [place] [address] Social History Tobacco Use Types Packs/Day Years [...] on filedocumented in this encounter Care Teams First Line Production Supervisor Relationship Specialty Start Date End Date Jacinto Chaudhary MD [address] [place] [address] [place] [phone] PCP - General 09/22/16 08/02/22 documented as of this encounter
--- OUTSIDE RECORDS SUMMARY | 2025-01-05 10:55 | XMS_ITS | Encounter Summary ---
Author Organization [facility] Address [address] [place] [address] Phone Care Team Providers Care Trust Mail Clerk Name Role Phone Jacinto Chaudhary MD Primary Care Provider [phone] Encounter Details Date Type Department Care Team (Late st Contact Info) Description 04/07/2014 Documentation [facility] [place] [address] [place] [address] Family Medicine, Physician [address] [place] [address] Social History Tobacco Use Types Packs/Day Years [...] on filedocumented in this encounter Care Teams Trust Mail Clerk Relationship Specialty Start Date End Date Jacinto Chaudhary MD [address] [place] [address] [place] [phone] PCP - General 09/22/16 08/02/22 documented as of this encounter
--- OUTSIDE RECORDS SUMMARY | 2025-01-05 10:55 | XMS_ITS | Encounter Summary ---
Author Organization [facility] Address [address] [place] [address] Phone Care Team Providers Care Chief Controller Center Name Role Phone Jacinto Chaudhary MD Primary Care Provider [phone] Encounter Details Date Type Department Care Team (Late st Contact Info) Description 03/14/2012 Documentation [facility] [place] Family [place] [address] [place] [address] Family Medicine, Physician [address] [place] [address] Social History Tobacco Use Types Packs/Day Years [...] filedocumented in this encounter Care Teams Chief Controller Center Relationship Specialty Start Date End Date Jacinto Chaudhary MD [address] [place] [address] [place] [phone] PCP - General 09/22/16 08/02/22 documented as of this encounter
--- OUTSIDE RECORDS SUMMARY | 2025-01-05 10:55 | XMS_ITS | Encounter Summary ---
Author Organization [facility] Address [address] [place] [address] Phone Care Team Providers Care Vendor Specialist Name Role Phone Jacinto Chaudhary MD Primary Care Provider [phone] Encounter Details Date Type Department Care Team (Late st Contact Info) Description 04/13/2016 Documentation [facility] [place] Family Medicine [address] [place] [address] Family Medicine, Physician [address] [place] [address] Social History Tobacco Use Types Packs/Day Years [...] on filedocumented in this encounter Care Teams Vendor Specialist Relationship Specialty Start Date End Date Jacinto Chaudhary MD [address] [place] [address] [place] [phone] PCP - General 09/22/16 08/02/22 documented as of this encounter
--- OUTSIDE RECORDS SUMMARY | 2025-01-05 10:55 | XMS_ITS | Encounter Summary ---
Author Organization [facility] Address [address] [place] [address] Phone Care Team Providers Care Cad Programmer Name Role Phone Jacinto Chaudhary MD Primary Care Provider [phone] Encounter Details Date Type Department Care Team (Late st Contact Info) Description 04/09/2015 Documentation [facility] [place] Medicine [address] [place] [address] Family Medicine, Physician [address] [place] [address] Social History Tobacco Use Types Packs/Day Years [...] on filedocumented in this encounter Care Teams Cad Programmer Relationship Specialty Start Date End Date Jacinto Chaudhary MD [address] [place] [address] [place] [phone] PCP - General 09/22/16 08/02/22 documented as of this encounter
--- OUTSIDE RECORDS SUMMARY | 2025-01-05 10:55 | XMS_ITS | Encounter Summary ---
Author Organization [facility] Address [address] [place] [address] Phone Care Team Providers Care Picker Name Role Phone Jacinto Chaudhary MD Primary Care Provider [phone] Encounter Details Date Type Department Care Team (Late st Contact Info) Description 02/27/2013 Documentation [facility] [place] Family Medicine [address] [place] [address] Family Medicine, Physician [address] [place] [address] Social History Tobacco Use Types Packs/Day Years [...] on filedocumented in this encounter Care Teams Picker Relationship Specialty Start Date End Date Jacinto Chaudhary MD [address] [place] [address] [place] [phone] PCP - General 09/22/16 08/02/22 documented as of this encounter
--- OUTSIDE RECORDS SUMMARY | 2025-01-05 10:55 | XMS_ITS | Encounter Summary ---
Author Organization [facility] Address [address] [place] [address] Phone Care Team Providers Care Monitor Tech Name Role Phone Jacinto Chaudhary MD Primary Care Provider [phone] Encounter Details Date Type Department Care Team (Late st Contact Info) Description 04/04/2013 Documentation [facility] [place] [address] [place] [address] Family Medicine, Physician [address] [place] [address] Social History Tobacco Use Types Packs/Day Years [...] on filedocumented in this encounter Care Teams Monitor Tech Relationship Specialty Start Date End Date Jacinto Chaudhary MD [address] [place] [address] [place] [phone] PCP - General 09/22/16 08/02/22 documented as of this encounter
--- OUTSIDE RECORDS SUMMARY | 2025-01-05 10:55 | XMS_ITS | Encounter Summary ---
Author Organization [facility] Address [address] [place] [address] Phone Care Team Providers Care Geological Technician Name Role Phone Jacinto Chaudhary MD Primary Care Provider [phone] Encounter Details Date Type Department Care Team (Late st Contact Info) Description 04/07/2014 Documentation [facility] [place] Family Medicine [address] [place] [address] Family Medicine, Physician [address] [place] [address] Social History Tobacco Use Types Packs/Day Years [...] on filedocumented in this encounter Care Teams Geological Technician Relationship Specialty Start Date End Date Jacinto Chaudhary MD [address] [place] [address] [place] [phone] PCP - General 09/22/16 08/02/22 documented as of this encounter
--- OUTSIDE RECORDS SUMMARY | 2025-01-05 10:55 | XMS_ITS | Encounter Summary ---
Author Organization [facility] Address [address] [place] [address] Phone Care Team Providers Care Supervisor Offset Plate Preparation Name Role Phone Jacinto Chaudhary MD Primary Care Provider [phone] Encounter Details Date Type Department Care Team (Late st Contact Info) Description 04/04/2013 Documentation [facility] [place] [address] [place] [address] Family Medicine, Physician [address] [place] [address] Social History Tobacco Use Types Packs/Day Years [...] filedocumented in this encounter Care Teams Supervisor Offset Plate Preparation Relationship Specialty Start Date End Date Jacinto Chaudhary MD [address] [place] [address] [place] [phone] PCP - General 09/22/16 08/02/22 documented as of this encounter
--- OUTSIDE RECORDS SUMMARY | 2025-01-05 10:55 | XMS_ITS | Encounter Summary ---
Author Organization [facility] Address [address] [place] [address] Phone Care Team Providers Care Food Cashier Name Role Phone Jacinto Chaudhary MD Primary Care Provider [phone] Encounter Details Date Type Department Care Team (Late st Contact Info) Description 04/09/2015 Documentation [facility] [place] Family Medicine [address] [place] [address] Family Medicine, Physician [address] [place] [address] Social History Tobacco Use Types Packs/Day Years [...] filedocumented in this encounter Care Teams Food Cashier Relationship Specialty Start Date End Date Jacinto Chaudhary MD [address] [place] [address] [place] [phone] PCP - General 09/22/16 08/02/22 documented as of this encounter
--- OUTSIDE RECORDS SUMMARY | 2025-01-05 10:55 | XMS_ITS | Encounter Summary ---
Author Organization [facility] Address [address] [place] [address] Phone Care Team Providers Care Vacuum Repairer Name Role Phone Jacinto Chaudhary MD Primary Care Provider [phone] Encounter Details Date Type Department Care Team (Late st Contact Info) Description 11/10/2013 Documentation [facility] [place] Family Medicine [address] [place] [address] Family Medicine, Physician [address] [place] [address] Social History Tobacco Use Types Packs/Day Years [...] on filedocumented in this encounter Care Teams Vacuum Repairer Relationship Specialty Start Date End Date Jacinto Chaudhary MD [address] [place] [address] [place] [phone] PCP - General 09/22/16 08/02/22 documented as of this encounter
== END 2025-01-05 09:31 | disposition home or self-care (01) ==
LOC: HO.HMGAL 09:30
PROVIDERS: PCP Physician Assistant; Visit Provider Registered Nurse Emergency
DX: J30.89 Other allergic rhinitis (principal)
CPT/HCPCS: 95117; 95165

== ENCOUNTER 2025-01-12 10:08 | Outpatient (AMB) | payer OTHER, SELFPAY ==
--- OUTSIDE RECORDS SUMMARY | 2025-01-12 12:25 | XMS_ITS | Encounter Summary ---
Author Organization [facility] Address [address] [place] [address] Phone Care Team Providers Care Budget Examiner Name Role Phone Jacinto Chaudhary MD Primary Care Provider [phone] Encounter Details Date Type Department Care Team (Late st Contact Info) Description 02/16/2011 Documentation [facility] [place] [address] [place] [address] Family Medicine, Physician [address] [place] [address] Social History Tobacco Use Types Packs/Day Years [...] on filedocumented in this encounter Care Teams Budget Examiner Relationship Specialty Start Date End Date Jacinto Chaudhary MD [address] [place] [address] [place] [phone] PCP - General 09/22/16 08/02/22 documented as of this encounter
--- OUTSIDE RECORDS SUMMARY | 2025-01-12 12:26 | XMS_ITS | Encounter Summary ---
Author Organization [facility] Address [address] [place] [address] Phone Care Team Providers Care Warehouse Driver Name Role Phone Jacinto Chaudhary MD Primary Care Provider [phone] Encounter Details Date Type Department Care Team (Late st Contact Info) Description 11/25/2015 Documentation [facility] [place] Family Medicine [address] [place] [address] Family Medicine, Physician [address] [place] [address] Social History Tobacco Use Types Packs/Day Years [...] filedocumented in this encounter Care Teams Warehouse Driver Relationship Specialty Start Date End Date Jacinto Chaudhary MD [address] [place] [address] [place] [phone] PCP - General 09/22/16 08/02/22 documented as of this encounter
--- OUTSIDE RECORDS SUMMARY | 2025-01-12 12:26 | XMS_ITS | Encounter Summary ---
Author Organization [facility] Address [address] [place] [address] Phone Care Team Providers Care Funnel Coater Name Role Phone Jacinto Chaudhary MD Primary Care Provider [phone] Encounter Details Date Type Department Care Team (Late st Contact Info) Description 04/14/2016 Documentation [facility] [place] Family Medicine [address] [place] [address] Family Medicine, Physician [address] [place] [address] Social History Tobacco Use Types Packs/Day Years [...] on filedocumented in this encounter Care Teams Funnel Coater Relationship Specialty Start Date End Date Jacinto Chaudhary MD [address] [place] [address] [place] [phone] PCP - General 09/22/16 08/02/22 documented as of this encounter
--- OUTSIDE RECORDS SUMMARY | 2025-01-12 12:26 | XMS_ITS | Encounter Summary ---
Author Organization [facility] Address [address] [place] [address] Phone Care Team Providers Care Returns Processor Name Role Phone Jacinto Chaudhary MD Primary Care Provider [phone] Encounter Details Date Type Department Care Team (Late st Contact Info) Description 11/10/2013 Documentation [facility] [place] Family Medicine [address] [place] [address] Family Medicine, Physician [address] [place] [address] Social History Tobacco Use Types Packs/Day Years [...] on filedocumented in this encounter Care Teams Returns Processor Relationship Specialty Start Date End Date Jacinto Chaudhary MD [address] [place] [address] [place] [phone] PCP - General 09/22/16 08/02/22 documented as of this encounter
--- OUTSIDE RECORDS SUMMARY | 2025-01-12 12:26 | XMS_ITS | Encounter Summary ---
Author Organization [facility] Address [address] [place] [address] Phone Care Team Providers Care Gear Tester Name Role Phone Jacinto Chaudhary MD Primary Care Provider [phone] Encounter Details Date Type Department Care Team (Late st Contact Info) Description 03/14/2012 Documentation [facility] [place] Family Medicine [address] [place] [address] Family Medicine, Physician [address] [place] [address] Social History Tobacco Use Types Packs/Day Years [...] on filedocumented in this encounter Care Teams Gear Tester Relationship Specialty Start Date End Date Jacinto Chaudhary MD [address] [place] [address] [place] [phone] PCP - General 09/22/16 08/02/22 documented as of this encounter
--- OUTSIDE RECORDS SUMMARY | 2025-01-12 12:26 | XMS_ITS | Encounter Summary ---
Author Organization [facility] Address [address] [place] [address] Phone Care Team Providers Care Route Salesperson Name Role Phone Jacinto Chaudhary MD Primary Care Provider [phone] Encounter Details Date Type Department Care Team (Late st Contact Info) Description 05/09/2013 Documentation [facility] [place] Family Medicine [address] [place] [address] Family Medicine, Physician [address] [place] [address] Social History Tobacco Use Types Packs/Day Years [...] on filedocumented in this encounter Care Teams Route Salesperson Relationship Specialty Start Date End Date Jacinto Chaudhary MD [address] [place] [address] [place] [phone] PCP - General 09/22/16 08/02/22 documented as of this encounter
--- OUTSIDE RECORDS SUMMARY | 2025-01-12 12:26 | XMS_ITS | Clinical Summary ---
Author Organization [facility] Address [address] [place] [address] Phone Care Team Providers Care Product Distribution Specialist Name Role Phone Unavailable Primary Care Provider [...]
--- OUTSIDE RECORDS SUMMARY | 2025-01-12 12:26 | XMS_ITS | Encounter Summary ---
Author Organization [facility] Address [address] [place] [address] Phone Care Team Providers Care Pole Peeling Machine Operator Helper Name Role Phone Jacinto Chaudhary MD Primary Care Provider [phone] Encounter Details Date Type Department Care Team (Late st Contact Info) Description 02/16/2011 Documentation [facility] [place] Medicine [address] [place] [address] Family Medicine, Physician [address] [place] [address] Social History Tobacco Use Types Packs/Day Years [...] on filedocumented in this encounter Care Teams Pole Peeling Machine Operator Helper Relationship Specialty Start Date End Date Jacinto Chaudhary MD [address] [place] [address] [place] [phone] PCP - General 09/22/16 08/02/22 documented as of this encounter
--- OUTSIDE RECORDS SUMMARY | 2025-01-12 12:26 | XMS_ITS | Encounter Summary ---
Author Organization [facility] Address [address] [place] [address] Phone Care Team Providers Care Pottery Decoration Designer Name Role Phone Jacinto Chaudhary MD Primary Care Provider [phone] Encounter Details Date Type Department Care Team (Late st Contact Info) Description 11/10/2013 [place]ation [facility] [place] [address] [place] [address] Family Medicine, Physician [address] [place] [address] Social History Tobacco Use Types Packs/Day Years [...] on filedocumented in this encounter Care Teams Pottery Decoration Designer Relationship Specialty Start Date End Date Jacinto Chaudhary MD [address] [place] [address] [place] [phone] PCP - General 09/22/16 08/02/22 documented as of this encounter
--- OUTSIDE RECORDS SUMMARY | 2025-01-12 12:26 | XMS_ITS | Encounter Summary ---
Author Organization [facility] Address [address] [place] [address] Phone Care Team Providers Care Plant Machinist Name Role Phone Jacinto Chaudhary MD Primary Care Provider [phone] Encounter Details Date Type Department Care Team (Late st Contact Info) Description 04/14/2016 Documentation [facility] [place] Family Medicine [address] [place] [address] Family Medicine, Physician [address] [place] [address] Social History Tobacco Use Types Packs/Day Years [...] on filedocumented in this encounter Care Teams Plant Machinist Relationship Specialty Start Date End Date Jacinto Chaudhary MD [address] [place] [address] [place] [phone] PCP - General 09/22/16 08/02/22 documented as of this encounter
--- OUTSIDE RECORDS SUMMARY | 2025-01-12 12:26 | XMS_ITS | Encounter Summary ---
Author Organization [facility] Address [address] [place] [address] Phone Care Team Providers Care Multimedia Instructional Designer Name Role Phone Jacinto Chaudhary MD Primary Care Provider [phone] Encounter Details Date Type Department Care Team (Late st Contact Info) Description 03/14/2012 Documentation [facility] [place] Family Medicine [address] [place] [address] Family Medicine, Physician [address] [place] [address] Social History Tobacco Use Types Packs/Day Years [...] on filedocumented in this encounter Care Teams Multimedia Instructional Designer Relationship Specialty Start Date End Date Jacinto Chaudhary MD [address] [place] [address] [place] [phone] PCP - General 09/22/16 08/02/22 documented as of this encounter
--- OUTSIDE RECORDS SUMMARY | 2025-01-12 12:26 | XMS_ITS | Encounter Summary ---
Author Organization [facility] Address [address] [place] [address] Phone Care Team Providers Care Energy Attorney Name Role Phone Jacinto Chaudhary MD Primary Care Provider [phone] Encounter Details Date Type Department Care Team (Late st Contact Info) Description 04/13/2016 Documentation [facility] [place] [address] [place] [address] Family Medicine, Physician [address] [place] [address] Social History Tobacco Use Types Packs/Day Years [...] on filedocumented in this encounter Care Teams Energy Attorney Relationship Specialty Start Date End Date Jacinto Chaudhary MD [address] [place] [address] [place] [phone] PCP - General 09/22/16 08/02/22 documented as of this encounter
--- OUTSIDE RECORDS SUMMARY | 2025-01-12 12:26 | XMS_ITS | Encounter Summary ---
Author Organization [facility] Address [address] [place] [address] Phone Care Team Providers Care Batterboard Setter Name Role Phone Jacinto Chaudhary MD Primary Care Provider [phone] Encounter Details Date Type Department Care Team (Late st Contact Info) Description 10/14/2013 Documentation [facility] [place] [address] [place] [address] Family Medicine, Physician [address] [place] [address] Social History Tobacco Use Types Packs/Day Years [...] on filedocumented in this encounter Care Teams Batterboard Setter Relationship Specialty Start Date End Date Jacinto Chaudhary MD [address] [place] [address] [place] [id number] PCP - General 09/22/16 08/02/22 documented as of this encounter
--- OUTSIDE RECORDS SUMMARY | 2025-01-12 12:26 | XMS_ITS | Encounter Summary ---
Author Organization [facility] Address [address] [place] [address] Phone Care Team Providers Care Inspector Canvas Products Name Role Phone Jacinto Chaudhary MD Primary Care Provider [phone] Encounter Details Date Type Department Care Team (Late st Contact Info) Description 09/28/2016 Conversion Encounter [facility] [place] [address] [place] [address] Social History Tobacco Use Types Packs/Day Years [...] filedocumented in this encounter Care Teams Inspector Canvas Products Relationship Specialty Start Date End Date Jacinto Chaudhary MD [address] [facility] [place] [address] PCP - General 09/22/16 08/02/22 documented as of this encounter
--- OUTSIDE RECORDS SUMMARY | 2025-01-12 12:26 | XMS_ITS | Encounter Summary ---
Author Organization [facility] Address [address] [place] [address] Phone Care Team Providers Care Account Processor Name Role Phone Jacinto Chaudhary MD Primary Care Provider [phone] Encounter Details Date Type Department Care Team (Late st Contact Info) Description 08/19/2010 Documentation [facility] [place] [address] [place] [address] Family Medicine, Physician [address] [place] [address] Social History Tobacco Use Types Packs/Day Years [...] filedocumented in this encounter Care Teams Account Processor Relationship Specialty Start Date End Date Jacinto Chaudhary MD [address] [place] [address] [place] [phone] PCP - General 09/22/16 08/02/22 documented as of this encounter
--- OUTSIDE RECORDS SUMMARY | 2025-01-12 12:27 | XMS_ITS | Encounter Summary ---
Author Organization [facility] Address [address] [place] [address] Phone Care Team Providers Care Risk Tech Name Role Phone Jacinto Chaudhary MD Primary Care Provider Encounter Details Date Type Department Care Team (Late st Contact Info) Description 04/09/2015 Documentation [facility] [place] Family Medicine [address] [place] [address] Family Medicine, Physician [address] [place] [address] Social History Tobacco Use Types Packs/Day Years [...] on filedocumented in this encounter Care Teams Risk Tech Relationship Specialty Start Date End Date Jacinto Chaudhary MD [address] [place] [address] [place] [phone] PCP - General 09/22/16 08/02/22 documented as of this encounter
--- OUTSIDE RECORDS SUMMARY | 2025-01-12 12:27 | XMS_ITS | Encounter Summary ---
Author Organization [facility] Address [address] [place] [address] Phone Care Team Providers Care Devops Architect Name Role Phone Jacinto Chaudhary MD Primary Care Provider [phone] Encounter Details Date Type Department Care Team (Late st Contact Info) Description 04/07/2014 Documentation [facility] [place] Family Medicine [address] [place] [address] Family Medicine, Physician [address] [place] [address] Social History Tobacco Use Types Packs/Day Years [...] on filedocumented in this encounter Care Teams Devops Architect Relationship Specialty Start Date End Date Jacinto Chaudhary MD [address] [place] [address] [place] [phone] PCP - General 09/22/16 08/02/22 documented as of this encounter
--- OUTSIDE RECORDS SUMMARY | 2025-01-12 12:27 | XMS_ITS | Encounter Summary ---
Author Organization [facility] Address [address] [place] [address] Phone Care Team Providers Care Restorative Art Embalmer Name Role Phone Jacinto Chaudhary MD Primary Care Provider [phone] Encounter Details Date Type Department Care Team (Late st Contact Info) Description 04/09/2015 Documentation [facility] [place] [address] [place] [address] Family Medicine, Physician [address] [place] [address] Social History Tobacco Use Types Packs/Day Years [...] on filedocumented in this encounter Care Teams Restorative Art Embalmer Relationship Specialty Start Date End Date Jacinto Chaudhary MD [address] [place] [address] [place] [phone] PCP - General 09/22/16 08/02/22 documented as of this encounter
--- OUTSIDE RECORDS SUMMARY | 2025-01-12 12:27 | XMS_ITS | Encounter Summary ---
Author Organization [facility] Address [address] [place] [address] Phone Care Team Providers Care Environmental Inspector Name Role Phone Jacinto Chaudhary MD Primary Care Provider [phone] Encounter Details Date Type Department Care Team (Late st Contact Info) Description 04/07/2014 Documentation [facility] [place] [address] [place] [address] Family Medicine, Physician [address] [place] [address] Social History Tobacco Use Types Packs/Day Years [...] filedocumented in this encounter Care Teams Environmental Inspector Relationship Specialty Start Date End Date Jacinto Chaudhary MD [address] [place] [address] [place] [phone] PCP - General 09/22/16 08/02/22 documented as of this encounter
--- OUTSIDE RECORDS SUMMARY | 2025-01-12 12:27 | XMS_ITS | Encounter Summary ---
Author Organization [facility] Address [address] [place] [address] Phone Care Team Providers Care Nonprofit Director Name Role Phone Jacinto Chaudhary MD Primary Care Provider [phone] Encounter Details Date Type Department Care Team (Late st Contact Info) Description 04/04/2013 Documentation [facility] [place] Family Medicine [address] [place] [address] Family Medicine, Physician [address] [place] [address] Social History Tobacco Use Types Packs/Day Years [...] on filedocumented in this encounter Care Teams Nonprofit Director Relationship Specialty Start Date End Date Jacinto Chaudhary MD [address] [place] [address] [place] [id number] PCP - General 09/22/16 08/02/22 documented as of this encounter
--- OUTSIDE RECORDS SUMMARY | 2025-01-12 12:27 | XMS_ITS | Encounter Summary ---
Author Organization [facility] Address [address] [place] [address] Phone Care Team Providers Care Razor Sharpener Name Role Phone Jacinto Chaudhary MD Primary Care Provider [phone] Encounter Details Date Type Department Care Team (Late st Contact Info) Description 04/04/2013 Documentation [facility] [place] Family Medicine [address] [place] [address] Family Medicine, Physician [address] [place] [address] Social History Tobacco Use Types Packs/Day Years [...] on filedocumented in this encounter Care Teams Razor Sharpener Relationship Specialty Start Date End Date Jacinto Chaudhary MD [address] [place] [address] [place] [phone] PCP - General 09/22/16 08/02/22 documented as of this encounter
--- OUTSIDE RECORDS SUMMARY | 2025-01-12 12:27 | XMS_ITS | Encounter Summary ---
Author Organization [facility] Address [address] [place] [address] Phone Care Team Providers Care Home Manager Name Role Phone Jacinto Chaudhary MD Primary Care Provider [phone] Encounter Details Date Type Department Care Team (Late st Contact Info) Description 04/26/2010 Documentation [facility] [place] Family Medicine [address] [place] [address] Family Medicine, Physician [address] [place] [address] Social History Tobacco Use Types Packs/Day Years [...] filedocumented in this encounter Care Teams Home Manager Relationship Specialty Start Date End Date Jacinto Chaudhary MD [address] [place] [address] [place] [phone] PCP - General 09/22/16 08/02/22 documented as of this encounter
--- OUTSIDE RECORDS SUMMARY | 2025-01-12 12:27 | XMS_ITS | Encounter Summary ---
Author Organization [facility] Address [address] [place] [address] Phone Care Team Providers Care Solderer Dipper Name Role Phone Jacinto Chaudhary MD Primary Care Provider [phone] Encounter Details Date Type Department Care Team (Late st Contact Info) Description 02/27/2013 Documentation [facility] [place] Family Medicine [address] [place] [address] Family Medicine, Physician [address] [place] [address] Social History Tobacco Use Types Packs/Day Years [...] on filedocumented in this encounter Care Teams Solderer Dipper Relationship Specialty Start Date End Date Jacinto Chaudhary MD [address] [place] [address] [place] [phone] PCP - General 09/22/16 08/02/22 documented as of this encounter
--- OUTSIDE RECORDS SUMMARY | 2025-01-12 12:27 | XMS_ITS | Encounter Summary ---
Author Organization [facility] Address [address] [place] [address] Phone Care Team Providers Care Roofer Applicator Name Role Phone Jacinto Chaudhary MD Primary Care Provider [phone] Encounter Details Date Type Department Care Team (Late st Contact Info) Description 02/27/2013 Documentation [facility] [place] Family Medicine [address] [place] [address] Family Medicine, Physician [address] [place] [address] Social History Tobacco Use Types Packs/Day Years [...] on filedocumented in this encounter Care Teams Roofer Applicator Relationship Specialty Start Date End Date Jacinto Chaudhary MD [address] [place] [address] [place] [phone] PCP - General 09/22/16 08/02/22 documented as of this encounter
--- OUTSIDE RECORDS SUMMARY | 2025-01-12 12:27 | XMS_ITS | Encounter Summary ---
Author Organization [facility] Address [address] [place] [address] Phone Care Team Providers Care Day Haul Or Farm Charter Bus Driver Name Role Phone Jacinto Chaudhary MD Primary Care Provider [phone] Encounter Details Date Type Department Care Team (Late st Contact Info) Description 04/09/2015 Documentation [facility] [place] Family Medicine [address] [place] [address] Family Medicine, Physician [address] [place] [address] Social History Tobacco Use Types Packs/Day Years [...] on filedocumented in this encounter Care Teams Day Haul Or Farm Charter Bus Driver Relationship Specialty Start Date End Date Jacinto Chaudhary MD [address] [place] [address] [place] [phone] PCP - General 09/22/16 08/02/22 documented as of this encounter
== END 2025-01-12 10:09 | disposition home or self-care (01) ==
LOC: HO.HMGAL 10:08
PROVIDERS: PCP Physician Assistant; Visit Provider Registered Nurse Emergency
DX: J30.89 Other allergic rhinitis (principal)
CPT/HCPCS: 95117; 95165

== ENCOUNTER 2025-01-19 09:52 | Outpatient (AMB) | payer OTHER, SELFPAY | END 2025-01-19 09:52 | disposition home or self-care (01) | LOC: HO.HMGAL 09:52 | PROVIDERS: PCP Physician Assistant; Visit Provider Registered Nurse Emergency | DX: J30.89 Other allergic rhinitis (principal) | CPT/HCPCS: 95117; 95165 ==

== ENCOUNTER 2025-01-26 09:50 | Outpatient (AMB) | payer OTHER, SELFPAY | END 2025-01-26 09:50 | disposition home or self-care (01) | LOC: HO.HMGAL 09:50 | PROVIDERS: PCP Physician Assistant; Visit Provider Registered Nurse Emergency | DX: J30.89 Other allergic rhinitis (principal) | CPT/HCPCS: 95117; 95165 ==

== ENCOUNTER 2025-02-02 09:47 | Outpatient (AMB) | payer OTHER, SELFPAY ==
--- OUTSIDE RECORDS SUMMARY | 2025-02-02 11:22 | XMS_ITS | Encounter Summary ---
Author Organization [facility] Address [address] [place] [address] Phone Care Team Providers Care Manager Cleaning Name Role Phone Jacinto Chaudhary MD Primary Care Provider [phone] Encounter Details Date Type Department Care Team (Late st Contact Info) Description 04/14/2016 Documentation [facility] [place] [address] [place] [address] Family Medicine, Physician [address] [place] [address] Social History Tobacco Use Types Packs/Day Years [...] filedocumented in this encounter Care Teams Manager Cleaning Relationship Specialty Start Date End Date Jacinto Chaudhary MD [address] [place] [address] [place] [phone] PCP - General 09/22/16 08/02/22 documented as of this encounter
--- OUTSIDE RECORDS SUMMARY | 2025-02-02 11:22 | XMS_ITS | Encounter Summary ---
Author Organization [facility] Address [address] [place] [address] Phone Care Team Providers Care Air Marshal Name Role Phone Jacinto Chaudhary MD Primary Care Provider [phone] Encounter Details Date Type Department Care Team (Late st Contact Info) Description 11/25/2015 Documentation [facility] [place] [address] [place] [address] Family Medicine, Physician [address] [place] [address] Social History Tobacco Use Types Packs/Day Years [...] on filedocumented in this encounter Care Teams Air Marshal Relationship Specialty Start Date End Date Jacinto Chaudhary MD [address] [place] [address] [place] [phone] PCP - General 09/22/16 08/02/22 documented as of this encounter
--- OUTSIDE RECORDS SUMMARY | 2025-02-02 11:22 | XMS_ITS | Encounter Summary ---
Author Organization [facility] Address [address] [place] [address] Phone Care Team Providers Care Watchstander Name Role Phone Jacinto Chaudhary MD Primary Care Provider [phone] Encounter Details Date Type Department Care Team (Late st Contact Info) Description 05/09/2013 Documentation [facility] [place] Family Medicine [address] [place] [address] Family Medicine, Physician [address] [place] [address] Social History Tobacco Use Types Packs/Day Years [...] on filedocumented in this encounter Care Teams Watchstander Relationship Specialty Start Date End Date Jacinto Chaudhary MD [address] [place] [address] [place] [id number] PCP - General 09/22/16 08/02/22 documented as of this encounter
--- OUTSIDE RECORDS SUMMARY | 2025-02-02 11:22 | XMS_ITS | Encounter Summary ---
Author Organization [facility] Address [address] [place] [address] Phone Care Team Providers Care Deputy District Customs Director Name Role Phone Jacinto Chaudhary MD Primary Care Provider [phone] Encounter Details Date Type Department Care Team (Late st Contact Info) Description 02/16/2011 Documentation [facility] [place] Family Medicine [address] [place] [address] Family Medicine, Physician [address] [place] [address] Social History Tobacco Use Types Packs/Day Years [...] on filedocumented in this encounter Care Teams Deputy District Customs Director Relationship Specialty Start Date End Date Jacinto Chaudhary MD [address] [place] [address] [place] Null [phone] PCP - General 09/22/16 08/02/22 documented as of this encounter
--- OUTSIDE RECORDS SUMMARY | 2025-02-02 11:22 | XMS_ITS | Encounter Summary ---
Author Organization [facility] Address [address] [place] [address] Phone Care Team Providers Care Regional Truck Driver Name Role Phone Jacinto Chaudhary MD Primary Care Provider [phone] Encounter Details Date Type Department Care Team (Late st Contact Info) Description 08/19/2010 Documentation [facility] [place] [address] [place] [address] Family Medicine, Physician [address] [place] [address] Social History Tobacco Use Types Packs/Day Years [...] on filedocumented in this encounter Care Teams Regional Truck Driver Relationship Specialty Start Date End Date Jacinto Chaudhary MD [address] [place] [address] [place] [phone] PCP - General 09/22/16 08/02/22 documented as of this encounter
--- OUTSIDE RECORDS SUMMARY | 2025-02-02 11:22 | XMS_ITS | Encounter Summary ---
Author Organization [facility] Address [address] [place] [address] Phone Care Team Providers Care Twist Tester Name Role Phone Jacinto Chaudhary MD Primary Care Provider [phone] Encounter Details Date Type Department Care Team (Late st Contact Info) Description 11/10/2013 Documentation [facility] [place] Family Medicine [address] [place] [address] Family Medicine, Physician [address] [place] [address] Social History Tobacco Use Types Packs/Day Years [...] on filedocumented in this encounter Care Teams Twist Tester Relationship Specialty Start Date End Date Jacinto Chaudhary MD [address] [place] [address] [place] [id number] PCP - General 09/22/16 08/02/22 documented as of this encounter
--- OUTSIDE RECORDS SUMMARY | 2025-02-02 11:22 | XMS_ITS | Encounter Summary ---
Author Organization [facility] Address [address] [place] [address] Phone Care Team Providers Care Roof Truss Detailer Name Role Phone Jacinto Chaudhary MD Primary Care Provider [phone] Encounter Details Date Type Department Care Team (Late st Contact Info) Description 03/14/2012 Documentation [facility] [place] Family Medicine [address] [place] [address] Family Medicine, Physician [address] [place] [address] Social History Tobacco Use Types Packs/Day Years [...] on filedocumented in this encounter Care Teams Roof Truss Detailer Relationship Specialty Start Date End Date Jacinto Chaudhary MD [address] [place] [address] [place] [id number] PCP - General 09/22/16 08/02/22 documented as of this encounter
--- OUTSIDE RECORDS SUMMARY | 2025-02-02 11:22 | XMS_ITS | Clinical Summary ---
Author Organization [facility] Address [address] [place] [address] Phone Care Team Providers Care Public Services Assistant Name Role Phone Unavailable Primary Care Provider [...]
--- OUTSIDE RECORDS SUMMARY | 2025-02-02 11:22 | XMS_ITS | Encounter Summary ---
Author Organization [facility] Address [address] [place] [address] Phone Care Team Providers Care Sales Order Coordinator Name Role Phone Jacinto Chaudhary MD Primary Care Provider [phone] Encounter Details Date Type Department Care Team (Late st Contact Info) Description 10/14/2013 Documentation [facility] [place] Family Medicine [address] [place] [address] Family Medicine, Physician [address] [place] [address] Social History Tobacco Use Types Packs/Day Years [...] on filedocumented in this encounter Care Teams Sales Order Coordinator Relationship Specialty Start Date End Date Jacinto Chaudhary MD [address] [place] [address] [place] [id number] PCP - General 09/22/16 08/02/22 documented as of this encounter
--- OUTSIDE RECORDS SUMMARY | 2025-02-02 11:22 | XMS_ITS | Encounter Summary ---
Author Organization [facility] Address [address] [place] [address] Phone Care Team Providers Care Cardiac Nurse Specialist Name Role Phone Jacinto Chaudhary MD Primary Care Provider [phone] Encounter Details Date Type Department Care Team (Late st Contact Info) Description 02/16/2011 Documentation [facility] [place] [address] [place] [address] Family Medicine, Physician [address] [place] [address] Social History Tobacco Use Types Packs/Day Years [...] on filedocumented in this encounter Care Teams Cardiac Nurse Specialist Relationship Specialty Start Date End Date Jacinto Chaudhary MD [address] [place] [address] [place] [id number] PCP - General 09/22/16 08/02/22 documented as of this encounter
--- OUTSIDE RECORDS SUMMARY | 2025-02-02 11:23 | XMS_ITS | Encounter Summary ---
Author Organization [facility] Address [address] [place] [address] Phone Care Team Providers Care Director Of Purchasing Name Role Phone Jacinto Chaudhary MD Primary Care Provider [phone] Encounter Details Date Type Department Care Team (Late st Contact Info) Description 04/04/2013 Documentation [facility] [place] [address] [place] [address] Family Medicine, Physician [address] [place] [address] Social History Tobacco Use Types Packs/Day Years [...] in this encounter Care Teams Director Of Purchasing Relationship Specialty Start Date End Date Jacinto Chaudhary MD [address] [place] [address] [place] [id number] PCP - General 09/22/16 08/02/22 documented as of this encounter
--- OUTSIDE RECORDS SUMMARY | 2025-02-02 11:23 | XMS_ITS | Encounter Summary ---
Author Organization [facility] Address [address] [place] [address] Phone Care Team Providers Care Residential Roofer Name Role Phone Jacinto Chaudhary MD Primary Care Provider Encounter Details Date Type Department Care Team (Late st Contact Info) Description 02/27/2013 Documentation [facility] [place] [address] [place] [address] Family Medicine, Physician [address] [place] [address] Social History Tobacco Use Types Packs/Day Years [...] on filedocumented in this encounter Care Teams Residential Roofer Relationship Specialty Start Date End Date Jacinto Chaudhary MD [address] [place] [address] [place] [phone] PCP - General 09/22/16 08/02/22 documented as of this encounter
--- OUTSIDE RECORDS SUMMARY | 2025-02-02 11:23 | XMS_ITS | Encounter Summary ---
Author Organization [facility] Address [address] [place] [address] Phone Care Team Providers Care Aircraft Seat Upholsterer Name Role Phone Jacinto Chaudhary MD Primary Care Provider [phone] Encounter Details Date Type Department Care Team (Late st Contact Info) Description 04/07/2014 Documentation [facility] [place] Family Medicine [address] [place] [address] Family Medicine, Physician [address] [place] [address] Social History Tobacco Use Types Packs/Day Years [...] on filedocumented in this encounter Care Teams Aircraft Seat Upholsterer Relationship Specialty Start Date End Date Jacinto Chaudhary MD [address] [place] [address] [place] [phone] PCP - General 09/22/16 08/02/22 documented as of this encounter
--- OUTSIDE RECORDS SUMMARY | 2025-02-02 11:23 | XMS_ITS | Encounter Summary ---
Author Organization [facility] Address [address] [place] [address] Phone Care Team Providers Care Research Physiologist Name Role Phone Jacinto Chaudhary MD Primary Care Provider [phone] Encounter Details Date Type Department Care Team (Late st Contact Info) Description 04/09/2015 Documentation [facility] [place] [address] [place] [address] Family Medicine, Physician [address] [place] [address] Social History Tobacco Use Types Packs/Day Years [...] filedocumented in this encounter Care Teams Research Physiologist Relationship Specialty Start Date End Date Jacinto Chaudhary MD [address] [place] [address] [place] [phone] PCP - General 09/22/16 08/02/22 documented as of this encounter
--- OUTSIDE RECORDS SUMMARY | 2025-02-02 11:23 | XMS_ITS | Encounter Summary ---
Author Organization [facility] Address [address] [place] [address] Phone Care Team Providers Care Exploration Engineer Name Role Phone Jacinto Chaudhary MD Primary Care Provider [phone] Encounter Details Date Type Department Care Team (Late st Contact Info) Description 04/04/2013 Documentation [facility] [place] [address] [place] [address] Family Medicine, Physician [address] [place] [address] Social History Tobacco Use Types Packs/Day Years [...] on filedocumented in this encounter Care Teams Exploration Engineer Relationship Specialty Start Date End Date Jacinto Chaudhary MD [address] [place] [address] [place] [id number] PCP - General 09/22/16 08/02/22 documented as of this encounter
--- OUTSIDE RECORDS SUMMARY | 2025-02-02 11:23 | XMS_ITS | Encounter Summary ---
Author Organization [facility] Address [address] [place] [address] Phone Care Team Providers Care Health And Fitness Instructor Name Role Phone Jacinto Chaudhary MD Primary Care Provider [phone] Encounter Details Date Type Department Care Team (Late st Contact Info) Description 04/14/2016 Documentation [facility] [place] [address] [place] [address] Family Medicine, Physician [address] [place] [address] Social History Tobacco Use Types Packs/Day Years [...] on filedocumented in this encounter Care Teams Health And Fitness Instructor Relationship Specialty Start Date End Date Jacinto Chaudhary MD [address] [place] [address] [place] [phone] PCP - General 09/22/16 08/02/22 documented as of this encounter
--- OUTSIDE RECORDS SUMMARY | 2025-02-02 11:23 | XMS_ITS | Encounter Summary ---
Author Organization [facility] Address [address] [place] [address] Phone Care Team Providers Care Fabrication Specialist Name Role Phone Jacinto Chaudhary MD Primary Care Provider [phone] Encounter Details Date Type Department Care Team (Late st Contact Info) Description 04/09/[address] [facility] [place] Family Medicine [address] [place] [address] Family Medicine, Physician [address] [place] [address] Social History Tobacco Use Types Packs/Day Years [...] on filedocumented in this encounter Care Teams Fabrication Specialist Relationship Specialty Start Date End Date Jacinto Chaudhary MD [address] [place] [address] [place] [id number] PCP - General 09/22/16 08/02/22 documented as of this encounter
--- OUTSIDE RECORDS SUMMARY | 2025-02-02 11:23 | XMS_ITS | Encounter Summary ---
Author Organization [facility] Address [address] [place] [address] Phone Care Team Providers Care Industrial Safety And Health Specialist Name Role Phone Jacinto Chaudhary MD Primary Care Provider [phone] Encounter Details Date Type Department Care Team (Late st Contact Info) Description 03/14/2012 Documentation [facility] [place] [address] [place] [address] Family Medicine, Physician [address] [place] [address] Social History Tobacco Use Types Packs/Day Years [...] filedocumented in this encounter Care Teams Industrial Safety And Health Specialist Relationship Specialty Start Date End Date Jacinto Chaudhary MD [address] [place] [address] [place] [phone] PCP - General 09/22/16 08/02/22 documented as of this encounter
--- OUTSIDE RECORDS SUMMARY | 2025-02-02 11:23 | XMS_ITS | Encounter Summary ---
Author Organization [facility] Address [address] [place] [address] Phone Care Team Providers Care Sports Complex Attendant Name Role Phone Jacinto Chaudhary MD Primary Care Provider [phone] Encounter Details Date Type Department Care Team (Late st Contact Info) Description 02/27/2013 Documentation [facility] [place] [address] [place] [address] Family Medicine, Physician [address] [place] [address] Social History Tobacco Use Types Packs/Day Years [...] on filedocumented in this encounter Care Teams Sports Complex Attendant Relationship Specialty Start Date End Date Jacinto Chaudhary MD [address] [place] [address] [place] [id number] PCP - General 09/22/16 08/02/22 documented as of this encounter
--- OUTSIDE RECORDS SUMMARY | 2025-02-02 11:23 | XMS_ITS | Encounter Summary ---
Author Organization [facility] Address [address] [place] [address] Phone Care Team Providers Care Analog Ic Design Engineer Name Role Phone Jacinto Chaudhary MD Primary Care Provider [phone] Encounter Details Date Type Department Care Team (Late st Contact Info) Description 04/26/2010 Documentation [facility] [place] Family Medicine [address] [place] [address] Family Medicine, Physician [address] [place] [address] Social History Tobacco Use Types Packs/Day Years [...] on filedocumented in this encounter Care Teams Analog Ic Design Engineer Relationship Specialty Start Date End Date Jacinto Chaudhary MD [address] [place] [address] [place] [id number] PCP - General 09/22/16 08/02/22 documented as of this encounter
--- OUTSIDE RECORDS SUMMARY | 2025-02-02 11:23 | XMS_ITS | Encounter Summary ---
Author Organization [facility] Address [address] [place] [address] Phone Care Team Providers Care Donation Specialist Name Role Phone Jacinto Chaudhary MD Primary Care Provider [phone] Encounter Details Date Type Department Care Team (Late st Contact Info) Description 11/10/2013 Documentation [facility] [place] Family Medicine [address] [place] [address] Family Medicine, Physician [address] [place] [address] Social History Tobacco Use Types Packs/Day Years [...] on filedocumented in this encounter Care Teams Donation Specialist Relationship Specialty Start Date End Date Jacinto Chaudhary MD [address] [place] [address] [place] [phone] PCP - General 09/22/16 08/02/22 documented as of this encounter
--- OUTSIDE RECORDS SUMMARY | 2025-02-02 11:23 | XMS_ITS | Encounter Summary ---
Author Organization [facility] Address [address] [place] [address] Phone Care Team Providers Care Wireless Internet Installer Name Role Phone Jacinto Chaudhary MD Primary Care Provider Encounter Details Date Type Department Care Team (Late st Contact Info) Description 04/13/2016 Documentation [facility] [place] [facility] [place] [address] [place] [address] Family Medicine, Physician [address] [place] [address] Social History Tobacco Use Types Packs/Day Years [...] on filedocumented in this encounter Care Teams Wireless Internet Installer Relationship Specialty Start Date End Date Jacinto Chaudhary MD [address] [place] [address] [place] [phone] PCP - General 09/22/16 08/02/22 documented as of this encounter
--- OUTSIDE RECORDS SUMMARY | 2025-02-02 11:23 | XMS_ITS | Encounter Summary ---
Author Organization [facility] Address [address] [place] [address] Phone Care Team Providers Care Machine Set Up Name Role Phone Jacinto Chaudhary MD Primary Care Provider [phone] Encounter Details Date Type Department Care Team (Late st Contact Info) Description 09/28/2016 Conversion Encounter [facility] [place] [address] [place] [address] Social History Tobacco Use Types Packs/Day Years [...] filedocumented in this encounter Care Teams Machine Set Up Relationship Specialty Start Date End Date Jacinto Chaudhary MD [address] [facility] [place] [address] PCP - General 09/22/16 08/02/22 documented as of this encounter
--- OUTSIDE RECORDS SUMMARY | 2025-02-02 11:23 | XMS_ITS | Encounter Summary ---
Author Organization [facility] Address [address] [place] [address] Phone Care Team Providers Care Material Control Analyst Name Role Phone Jacinto Chaudhary MD Primary Care Provider [phone] Encounter Details Date Type Department Care Team (Late st Contact Info) Description 04/09/2015 Documentation [facility] [place] Family [place] [address] [place] [address] Family Medicine, Physician [address] [place] [address] Social History Tobacco Use Types Packs/Day Years [...] on filedocumented in this encounter Care Teams Material Control Analyst Relationship Specialty Start Date End Date Jacinto Chaudhary MD [address] [place] [address] [place] [id number] PCP - General 09/22/16 08/02/22 documented as of this encounter
--- OUTSIDE RECORDS SUMMARY | 2025-02-02 11:23 | XMS_ITS | Encounter Summary ---
Author Organization [facility] Address [address] [place] [address] Phone Care Team Providers Care Lace Roller Name Role Phone Jacinto Chaudhary MD Primary Care Provider [phone] Encounter Details Date Type Department Care Team (Late st Contact Info) Description 04/07/2014 Documentation [facility] [place] [address] [place] [address] Family Medicine, Physician [address] [place] [address] Social History Tobacco Use Types Packs/Day Years [...] on filedocumented in this encounter Care Teams Lace Roller Relationship Specialty Start Date End Date Jacinto Chaudhary MD [address] [place] [address] [place] [id number] PCP - General 09/22/16 08/02/22 documented as of this encounter
== END 2025-02-02 09:47 | disposition home or self-care (01) ==
LOC: HO.HMGAL 09:47
PROVIDERS: PCP Physician Assistant; Visit Provider Registered Nurse Emergency
DX: J30.89 Other allergic rhinitis (principal)
CPT/HCPCS: 95117; 95165